=== PATIENT | female | born 1950 | race Caucasian/White ===

== ENCOUNTER → 2016-11-15 | Outpatient (CLI) | payer MEDICARE ==
--- NOTE | 2016-11-16 12:03 | MM ---
Reason for exam: screening (asymptomatic). Last mammogram was performed 1 year ago. History: Patient is postmenopausal. Took estrogen for 16 years beginning at age 39. Physical Findings: A clinical breast exam by your physician is recommended on an annual basis and results should be correlated with mammographic findings. MG 3D Screening Mammo W/Cad Bilateral CC and MLO view(s) were taken. Prior study comparison: November 12, 2015, bilateral MG 3d screening mammo w/cad. October 29, 2014, bilateral MG screening mammo w CAD. August 20, 2013, bilateral digital screening mammo w/CAD. There are scattered fibroglandular densities. There is chronic nodularity in the left breast. No significant changes when compared with prior studies. ASSESSMENT: Negative, BI-RAD 1 RECOMMENDATION: Routine screening mammogram of both breasts in 1 year.
== END | disposition home or self-care (01) ==
LOC: RADMAMWWP 14:27
PROVIDERS: ATTEND Obstetrics & Gynecology
DX: Z12.31 Encounter for screening mammogram for malignant neoplasm of breast (principal)
CPT/HCPCS: 77063; G0202

== ENCOUNTER → 2017-03-15 | Outpatient (CLI) | payer MEDICARE ==
[2017-03-15 15:13] LABS: Follicle Stimulating Hormone 7.6 mIU/mL; Prolactin 1.7 ng/mL (3.0-18.6)
[2017-03-15 19:50] LABS: ACTH 19.8 pg/mL (0.00-45.99)
== END ==
LOC: LABWHC1 14:22
PROVIDERS: ATTEND Internal Medicine Endocrinology, Diabetes & Metabolism
DX: E04.2 Nontoxic multinodular goiter (principal)
CPT/HCPCS: 36415; 82024; 82533; 83001; 83002; 84146; 84439; 84443; 84480

== ENCOUNTER → 2017-03-18 | Outpatient (CLI) | payer MEDICARE | END | disposition home or self-care (01) | LOC: LABWHC1 08:28 | PROVIDERS: ATTEND Internal Medicine Endocrinology, Diabetes & Metabolism | DX: E05.90 Thyrotoxicosis, unspecified without thyrotoxic crisis or storm (principal); R94.6 Abnormal results of thyroid function studies | CPT/HCPCS: 36415; 84439; 84443; 84445; 84481 ==

== ENCOUNTER → 2017-03-31 | Outpatient (CLI) | payer MEDICARE ==
--- NOTE | 2017-04-01 12:06 | NM ---
EXAMINATION TYPE: NM thyroid image w uptake DATE OF EXAM: 04/01/2017 COMPARISON: none HISTORY: Hyperthyroidism and abnormal thyroid function test per order. Symptoms of change in hair, n ails, weight gain, tremors, insomnia, and thyroid swelling per patient. TECHNIQUE: After the intravenous administration of 10.8 mCi Tc 99m Sodium Pertechnetate, thyroid imag ing is performed 10 minutes post injection. Thyroid iodine uptake is calculated after the oral admini stration of 15.8 uCi I-131 capsule. FINDINGS: There is normal distribution of activity throughout the gland. The 4 hour iodine uptake is calculated at 3%, diminished from the normal range however is the 24-hour iodine uptake is calculate d at 16% (normal range 15-35%) , lower limits of normal. IMPRESSION: Essentially normal thyroid scan and uptake.
== END | disposition home or self-care (01) ==
LOC: RADNMMAIN 10:54
PROVIDERS: ATTEND Internal Medicine Endocrinology, Diabetes & Metabolism
DX: E05.90 Thyrotoxicosis, unspecified without thyrotoxic crisis or storm (principal); R94.6 Abnormal results of thyroid function studies
CPT/HCPCS: 78014; A9528; A9512

== ENCOUNTER → 2017-05-17 | Outpatient (CLI) | payer MEDICARE | LOC: LABWHC1 09:04 | PROVIDERS: ATTEND Internal Medicine Endocrinology, Diabetes & Metabolism | DX: E04.2 Nontoxic multinodular goiter (principal) | CPT/HCPCS: 36415; 84439; 84443; 84480 ==

== ENCOUNTER → 2017-06-29 | Outpatient (CLI) | payer MEDICARE ==
--- NOTE | 2017-06-29 10:57 | XR ---
EXAMINATION TYPE: XR lumbosacral spine min 4V DATE OF EXAM: 06/29/2017 CLINICAL HISTORY: Back pain per order. TECHNIQUE: Frontal, lateral, and oblique images of the lumbar spine are obtained. COMPARISON: CT abdomen and pelvis November 12, 2009 FINDINGS: There are 5 lumbar type vertebral bodies identified. The lumbar spine shows straightened alignment without evidence of acute fracture or dislocation. Vertebral body heights are within normal limits. There is mild to moderate disc space narrowing L3-L4 level. There is fairly moderate facet a rthropathy in the lower lumbar spine. The oblique images appear within normal limits. No significant spurring is seen. Cholecystectomy clips are seen in the overlying soft tissue. IMPRESSION: Lower level facet arthropathy, mild to moderate disc space narrowing L3-L4 level, and los s of normal lumbar lordosis noted.
== END | disposition home or self-care (01) ==
LOC: RADXRMAIN 10:33
PROVIDERS: ATTEND Internal Medicine Geriatric Medicine
DX: M48.06 Spinal stenosis, lumbar region (principal); M46.96 Unspecified inflammatory spondylopathy, lumbar region
CPT/HCPCS: 72110

== ENCOUNTER → 2017-08-01 | Outpatient (CLI) | payer MEDICARE | END | disposition home or self-care (01) | LOC: LABWHC1 09:06 | PROVIDERS: ATTEND Internal Medicine Endocrinology, Diabetes & Metabolism | DX: E05.90 Thyrotoxicosis, unspecified without thyrotoxic crisis or storm (principal) | CPT/HCPCS: 36415; 84439; 84443 ==

== ENCOUNTER → 2017-12-08 | Outpatient (CLI) | payer MEDICARE ==
--- NOTE | 2017-12-08 14:23 | BD ---
EXAMINATION TYPE: MG DEXA axial skeleton. DATE OF EXAM: 12/08/2017 COMPARISON: Prior DEXA bone scan October 29, 2014 CLINICAL HISTORY: Disorder of bone per order. Height: 65.5 Weight: 206.0 FRAX RISK QUESTIONS: Alcohol (3 or more units per day): no Family History (Parent hip fracture): no Glucocorticoids (More than 3mos): no (Ex: prednisone, prednisolone, methylprednisolone, dexamethasone, and hydrocortisone). History of Fracture in Adulthood: no Secondary Osteoporosis: 1. Type 1 Diabetes: no 2. Hyperthyroidism: no 3. Menopause before 45: yes 4. Malnutrition: no 5. Chronic liver disease: no Rheumatoid Arthritis: yes Current Tobacco Use: no RISK FACTORS HISTORY OF: Surgery to Spine/Hip(right/left)/Wrist (right/left): no Family History of Osteoporosis: no Active: yes Diet low in dairy products/other sources of calcium: no Postmenopausal woman: hysterectomy 30 years ago Lost more than 2 inches in height since high school: no Frequent falls: no Adrenal Insufficiency: no MEDICATIONS: omeprazole, venlafaxine, atorvastatin, losartan, xanax Thyroid Medications: thyroid How Lon year Additional History: EXAM MEASUREMENTS: Bone mineral densitometry was performed using the [employer] System. Bone mineral density as measured about the Lumbar spine is: ----- L1-L4(G/cm2): 0.913 T Score Values are as follows: ----- L2: -1.8 ----- L3: -2.8 ----- L4: -2.6 ----- L1-L4: -2.2 Bone mineral density has: decreased -10.3 % since study of: 10.29.2014 Bone mineral density about the R hip (g/cm2): 0.870 Bone mineral density about the L hip (g/cm2): 0.848 T Score values are as follows: -----R Neck: -1.2 -----L Neck: -1.4 -----R Total: -0.9 -----L Total: -1.3 Bone mineral density has: decreased -5.1 % since study of: 10.29.2014 IMPRESSION: Osteopenia (T Score between -2.5 and -1) in both hips and low back remains present. Bone density decr eased or diminished from prior. There remains slightly increased risk of fracture and the patient may be considered for treatment. Re-Screen 2-5 years. NOTE: T-SCORE=SD OF THE YOUNG ADULT MEAN.
--- NOTE | 2017-12-12 08:01 | MM ---
Reason for exam: screening (asymptomatic). Last mammogram was performed 1 year and 1 month ago. History: Patient is postmenopausal. Took estrogen for 16 years beginning at age 39. Physical Findings: A clinical breast exam by your physician is recommended on an annual basis and results should be correlated with mammographic findings. MG 3D Screening Mammo W/Cad Bilateral CC and MLO view(s) were taken. Prior study comparison: November 15, 2016, bilateral MG 3d screening mammo w/cad. November 12, 2015, bilateral MG 3d screening mammo w/cad. There are scattered fibroglandular densities. Increased nodularity in the left breast 5cm from nipple. This finding is changed when compared with previous exams. ASSESSMENT: Incomplete: need additional imaging evaluation, BI-RAD 0 RECOMMENDATION: Special view mammogram of the left breast. If lesion persists on supplemental views, image directed ultrasound is recommended. [facility] will attempt to contact patient to return for supplemental views and ultrasound if indicated.
== END | disposition home or self-care (01) ==
LOC: RADMAMWWP 11:07
PROVIDERS: ATTEND Obstetrics & Gynecology
DX: Z12.31 Encounter for screening mammogram for malignant neoplasm of breast (principal); M85.852 Other specified disorders of bone density and structure, left thigh; M85.851 Other specified disorders of bone density and structure, right thigh; M85.88 Other specified disorders of bone density and structure, other site
CPT/HCPCS: 77063; 77067; 77080

== ENCOUNTER → 2017-12-14 | Outpatient (CLI) | payer MEDICARE ==
--- NOTE | 2017-12-15 07:37 | MM ---
Reason for exam: additional evaluation requested from abnormal screening. Last mammogram was performed less than 1 month ago. History: Patient is postmenopausal. Took estrogen for 16 years beginning at age 39. Physical Findings: Nurse Summary: 1cm nodule in left breast at 12 o'clock (nurse jennifer). MG 3D Work Up W/Cad LT Spot compression CC, spot compression MLO, and ML view(s) were taken of the left breast. Prior study comparison: December 08, 2017, bilateral MG 3d screening mammo w/cad. November 15, 2016, bilateral MG 3d screening mammo w/cad. The breast tissue is heterogeneously dense. This may lower the sensitivity of mammography. There is chronic nodularity in the left breast subareolar position. These results were verbally communicated with the patient and result sheet given to the patient on 12/14/17. ASSESSMENT: Probably benign, BI-RAD 3 RECOMMENDATION: Follow-up diagnostic mammogram of the left breast in 1 year.
== END | disposition home or self-care (01) ==
LOC: RADMAMWWP 12:43
PROVIDERS: ATTEND Obstetrics & Gynecology
DX: R92.8 Other abnormal and inconclusive findings on diagnostic imaging of breast (principal)
CPT/HCPCS: 77065; G0279

== ENCOUNTER → 2018-03-31 | Outpatient (CLI) | payer MEDICARE ==
[2018-03-31 13:00] LABS: T4, Free (Free Thyroxine) 1.02 ng/dL (0.78-2.19)
== END | disposition home or self-care (01) ==
LOC: LABWHC1 11:45
PROVIDERS: ATTEND Internal Medicine Endocrinology, Diabetes & Metabolism
DX: E05.90 Thyrotoxicosis, unspecified without thyrotoxic crisis or storm (principal)
CPT/HCPCS: 36415; 84439; 84443; 84480

== ENCOUNTER → 2018-07-31 | Outpatient (CLI) | payer MEDICARE ==
--- NOTE | 2018-07-31 15:03 | US ---
EXAMINATION TYPE: US thyroid st tissue head/neck DATE OF EXAM: 07/31/2018 COMPARISON: NM study only CLINICAL HISTORY: E04.2 Nontoxic multinodular goiter. On thyroid meds, pt states known nodules GLAND SIZE: Right Lobe: 3.3 x 1.2 x 1.1 cm Overall Parenchyma: heterogenous Left Lobe: 3.8 x 1.4 x 1.2 cm Overall Parenchyma: heterogeneous Isthmus Thickness: 0.4 cm NODULES RIGHT: # of nodules measured on right: 2 1. 1.0 X 0.7 x 1.0 cm hypoechoic solid nodule at the lower pole with well-defined margins;This nodu le is wider than tall and shows intranodular vascularity. Prior size: No prior 2. 0.6 X 0.5 x 0.6 cm echogenic calcified nodule at the upper pole with poorly defined margins; Thi s nodule is wider than tall Prior size: No prior LEFT: # of nodules measured on left: 1 1. 0.7 X 0.6 x 0.7 cm hypoechoic solid nodule at the mid pole with well-defined margins; This nodu le is wider than tall and shows intranodular vascularity. Prior size: No prior Other sub-centimeter, cystic nodules seen bilaterally Bilateral neck scanned, no evidence of lymphadenopathy. Nodules bilaterally, heterogeneous thyroid. IMPRESSION: Nonspecific subcentimeter thyroid nodularity identified.
[2018-07-31 16:24] LABS: T4, Free (Free Thyroxine) 1.07 ng/dL (0.78-2.19)
== END | disposition home or self-care (01) ==
LOC: RADUSWWP 14:13
PROVIDERS: ATTEND Internal Medicine Endocrinology, Diabetes & Metabolism
DX: E04.2 Nontoxic multinodular goiter (principal); E05.90 Thyrotoxicosis, unspecified without thyrotoxic crisis or storm
CPT/HCPCS: 36415; 76536; 84439; 84443; 84480

== ENCOUNTER → 2019-04-13 | Outpatient (CLI) | payer MEDICARE ==
[2019-04-13 15:34] LABS: Albumin 4.3 g/dL (3.80-4.90); Albumin/Globulin Ratio 2.26 (1.60-3.17); Anion Gap 7.2 mmol/L (4.00-12.00); Calcium 9.3 mg/dL (8.7-10.3); Carbon Dioxide 27.8 mmol/L (21.6-31.8); Globulin 1.9 g/dL (1.6-3.3); LDL Cholesterol,Calculated 66.8 mg/dL (0.0-131.0); Potassium 4.1 mmol/L (3.5-5.5); Total Bilirubin 0.6 mg/dL (0.3-1.2); Total Protein 6.2 g/dL (6.2-8.2); VLDL Calculation 23.2 mg/dL (5.00-40.00)
[2019-04-13 16:26] LABS: Hemoglobin A1C 6.4 % (4.0-6.0)
== END ==
LOC: LABWHC1 08:56
PROVIDERS: ATTEND Internal Medicine Endocrinology, Diabetes & Metabolism
DX: E11.65 Type 2 diabetes mellitus with hyperglycemia (principal)
CPT/HCPCS: 36415; 80053; 80061; 82043; 82570; 83036; 84443

== ENCOUNTER → 2019-07-27 | Outpatient (CLI) | payer MEDICARE ==
[2019-07-27 10:23] LABS: Basophils # (A) 0.1 k/uL (0-0.2); Basophils % (A) 1 %; Eosinophils # (A) 0.3 k/uL (0-0.7); Eosinophils % (A) 5 %; HCT 44.7 % (34.0-46.0); HGB 14.1 gm/dL (11.4-16.0); Lymphocytes # (A) 1.5 k/uL (1.0-4.8); Lymphocytes % (A) 24 %; MCH 28.9 pg (25.0-35.0); MCHC 31.6 g/dL (31.0-37.0); MCV 91.5 fL (80.0-100.0); Mean Platelet Volume 6.9; Monocytes # (A) 0.4 k/uL (0-1.0); Monocytes % (A) 6 %; Neutrophils # (A) 3.9 k/uL (1.3-7.7); Neutrophils % (A) 62 %; Platelet Count 243 k/uL (150-450); RBC 4.88 m/uL (3.80-5.40); WBC 6.4 k/uL (3.8-10.6)
[2019-07-27 15:50] LABS: African American GFR (CKD) 113.7 (60.0-200.0); Albumin 4.3 g/dL (3.80-4.90); Albumin/Globulin Ratio 2.39 (1.60-3.17); Anion Gap 9.1 mmol/L (4.00-12.00); Calcium 9.3 mg/dL (8.7-10.3); Carbon Dioxide 29.9 mmol/L (21.6-31.8); Chol/HDL Ratio 3.55; Globulin 1.8 g/dL (1.6-3.3); LDL Cholesterol,Calculated 65.6 mg/dL (0.0-131.0); Potassium 4.2 mmol/L (3.5-5.5); Total Bilirubin 1.1 mg/dL (0.2-1.2); Total Protein 6.1 g/dL (6.2-8.2); VLDL Calculation 36.4 mg/dL (5.00-40.00)
[2019-07-27 15:59] LABS: T4, Free (Free Thyroxine) 1.1 ng/dL (0.80-1.80)
[2019-07-27 20:24] LABS: Hemoglobin A1C 6.2 % (4.0-6.0)
== END | disposition home or self-care (01) ==
LOC: LABWHC1 09:21
PROVIDERS: ATTEND Internal Medicine Endocrinology, Diabetes & Metabolism
DX: E07.9 Disorder of thyroid, unspecified (principal); E78.2 Mixed hyperlipidemia; E11.65 Type 2 diabetes mellitus with hyperglycemia; E05.90 Thyrotoxicosis, unspecified without thyrotoxic crisis or storm
CPT/HCPCS: 36415; 80053; 80061; 83036; 84439; 84443; 85025

== ENCOUNTER → 2019-11-28 | Outpatient (CLI) | payer MEDICARE ==
[2019-11-28 12:07] LABS: T4, Free (Free Thyroxine) 1.3 ng/dL (0.80-1.80)
[2019-11-28 15:05] LABS: Hemoglobin A1C 7.1 % (4.0-6.0)
== END | disposition home or self-care (01) ==
LOC: LABWHC1 07:15
PROVIDERS: ATTEND Internal Medicine Endocrinology, Diabetes & Metabolism
DX: E05.90 Thyrotoxicosis, unspecified without thyrotoxic crisis or storm (principal); E11.9 Type 2 diabetes mellitus without complications
CPT/HCPCS: 36415; 83036; 84439; 84443; 84480

== ENCOUNTER → 2020-07-16 | Outpatient (CLI) | payer MEDICARE ==
--- NOTE | 2020-07-17 07:35 | US ---
EXAMINATION TYPE: US thyroid st tissue head/neck DATE OF EXAM: 07/16/2020 COMPARISON: NONE CLINICAL HISTORY: E05.90 Thyrotoxicosis, unspecified without. GLAND SIZE: Right Lobe: 3.6 x 1.0 x 1.2 cm Overall Parenchyma: heterogenous Left Lobe: 3.2 x 1.1 x 1.3 cm Overall Parenchyma: heterogeneous Isthmus Thickness: 0.4 cm NODULES RIGHT: # of nodules measured on right: 1, calc and subcentimeter cystic area noted but not measured . 1. 0.9 X 0.7 x 1.1 cm hypoechoic solid nodule at the mid pole with well-defined margins. This nodu le is wider than tall and shows intranodular vascularity. Prior size: 1.0 x 0.7 x 1.0 cm LEFT: # of nodules measured on left: 1 1. 0.8 X 0.7 x 0.9 cm mixed nodule at the mid pole with well-defined margins. This nodule is wider than tall and shows intranodular vascularity. Prior size: 0.7 x 0.7 x 0.6 cm ISTHMUS: # of nodules measured in the isthmus: 0 Bilateral neck scanned, no evidence of lymphadenopathy. IMPRESSION: 1. There is a 1 cm nodule within the right lobe thyroid essentially stable from comparison.
== END | disposition home or self-care (01) ==
LOC: RADUSWWP 16:37
PROVIDERS: ATTEND Internal Medicine Endocrinology, Diabetes & Metabolism
DX: E04.1 Nontoxic single thyroid nodule (principal)
CPT/HCPCS: 76536

== ENCOUNTER → 2020-10-21 | Outpatient (CLI) | payer MEDICARE ==
--- NOTE | 2020-10-21 19:16 | BD ---
EXAMINATION TYPE: Axial Bone Density DATE OF EXAM: 10/21/2020 COMPARISON: 12/08/2017 CLINICAL HISTORY: Postmenopausal screening Height: 5 FT 5 IN Weight: 186 FRAX RISK QUESTIONS: Alcohol (3 or more units per day): NO Family History (Parent hip fracture): NO Glucocorticoids (More than 3mos): NO (Ex: prednisone, prednisolone, methylprednisolone, dexamethasone, and hydrocortisone). History of Fracture in Adulthood: NO Secondary Osteoporosis: 1. Type 1 Diabetes: NO 2. HyperthyroidismNO 3. Menopause before 45: PART HYST AGE 43 4. Malnutrition: NO 5. Chronic liver disease: NO Rheumatoid Arthritis: YES Current Tobacco Use: NO RISK FACTORS HISTORY OF: Family History of Osteoporosis: NO Active: YES Diet low in dairy products/other sources of calcium: NO Postmenopausal woman: PART ST AGE 43 Take estrogen and/or progesterone medications: TOOK HRT AGE 43 -53 NO LONGER TAKES Lost more than 2 inches in height since high school: NO MEDICATIONS: Additional Medications: LYRICA, OMEPRAZOLE, ATORVASTATIN,LOSARTIN, AMLODIPINE, GENUVIA, XANAX, MOTRI N 600, VIT D , CALCIUM , ASPIRIN Additional History: EXAM MEASUREMENTS: Bone mineral densitometry was performed using the [employer]. Bone mineral density as measured about the Lumbar spine is: ----- L1-L4(G/cm2): 0.977 T Score Values are as follows: ----- L2: -1.3 ----- L3: -2.0 ----- L4: -2.1 ----- L1-L4: -1.7 Bone mineral density has: INCREASED 8.0 % since study of: 2017 Bone mineral density about the R hip (g/cm2): 0.863 Bone mineral density about the L hip (g/cm2): 0.833 T Score values are as follows: -----R Neck: -1.3 -----L Neck: -1.5 -----R Total: -0.6 -----L Total: -1.3 Bone mineral density has: INCREASED 2.0 % since study of: 2017 IMPRESSION: Osteopenia (T Score between -2.5 and -1). There is slightly increased risk of fracture and the patient may be considered for treatment. Re-Screen 2-5 years. NOTE: T-SCORE=SD OF THE YOUNG ADULT MEAN.
--- NOTE | 2020-10-22 13:12 | MM ---
Reason for exam: screening (asymptomatic). Last mammogram was performed 2 years and 10 months ago. History: Patient is postmenopausal. Took estrogen for 16 years beginning at age 39. Physical Findings: A clinical breast exam by your physician is recommended on an annual basis and results should be correlated with mammographic findings. MG 3D Screening Mammo W/Cad Bilateral CC and MLO view(s) were taken. Prior study comparison: December 14, 2017, left breast MG 3d work up w/cad LT. December 08, 2017, bilateral MG 3d screening mammo w/cad. There are scattered fibroglandular densities. There are benign appearing round calcifications bilaterally. There is chronic nodularity in the left breast subareolar level. There is no discrete abnormality. ASSESSMENT: Benign, BI-RAD 2 RECOMMENDATION: Routine screening mammogram of both breasts in 1 year.
== END | disposition home or self-care (01) ==
LOC: RADMAMWWP 09:27
PROVIDERS: ATTEND Internal Medicine Geriatric Medicine
DX: Z12.31 Encounter for screening mammogram for malignant neoplasm of breast (principal); M85.80 Other specified disorders of bone density and structure, unspecified site; M81.0 Age-related osteoporosis without current pathological fracture
CPT/HCPCS: 77063; 77067; 77080

== ENCOUNTER 2021-10-15 20:28 | Inpatient (IN) | payer MEDICARE ==
[2021-10-15 21:57] LABS: Basophils # (A) 0.1 k/uL (0-0.2); Basophils % (A) 0 %; Eosinophils # (A) 0.1 k/uL (0-0.7); Eosinophils % (A) 1 %; HCT 43.3 % (34.0-46.0); HGB 13.5 gm/dL (11.4-16.0); Lymphocytes # (A) 0.8 k/uL (1.0-4.8); Lymphocytes % (A) 6 %; MCH 26.9 pg (25.0-35.0); MCHC 31.1 g/dL (31.0-37.0); MCV 86.3 fL (80.0-100.0); Mean Platelet Volume 8.1; Monocytes # (A) 0.5 k/uL (0-1.0); Monocytes % (A) 4 %; Neutrophils # (A) 12.6 k/uL (1.3-7.7); Neutrophils % (A) 88 %; Platelet Count 257 k/uL (150-450); RBC 5.02 m/uL (3.80-5.40); RDW 13.5 % (11.5-15.5); WBC 14.2 k/uL (3.8-10.6)
[2021-10-15 22:13] LABS: ALT 21 U/L (4-34); AST 28 U/L (14-36); African American GFR (CKD) >90 (>60 ml/min/1.73 sqM); Albumin 4.4 g/dL (3.5-5.0); Alkaline Phosphatase 119 U/L (38-126); Anion Gap 7 mmol/L; Blood Urea Nitrogen 20 mg/dL (7-17); Calcium 9.9 mg/dL (8.4-10.2); Carbon Dioxide 32 mmol/L (22-30); Chloride 101 mmol/L (98-107); Glucose 165 mg/dL (74-99); Lipase 662 U/L (23-300); Non-African American GFR(CKD) >90 (>60 ml/min/1.73 sqM); Potassium 3.9 mmol/L (3.5-5.1); Sodium 140 mmol/L (137-145); Total Protein 7.2 g/dL (6.3-8.2)
[2021-10-15 23:03] LABS: Appearance,Urine Clear (Clear); Bacteria,Urine Many /hpf; Bilirubin,Urine Negative (Negative); Blood,Urine Moderate (Negative); Color,Urine Yellow; Glucose,Urine (UA) Negative (Negative); Ketones,Urine 1+ (Negative); Leukocyte Esterase,Urine Small (Negative); Mucus,Urine Occasional /hpf; Nitrite,Urine Negative (Negative); PH, Urine 5.5 (5.0-8.0); Protein,Urine Trace (Negative); RBC,Urine 13 /hpf (0-5); Specific Gravity,Urine 1.023 (1.001-1.035); Squamous Epithelial Cell,Urine <1 /hpf (0-4); Urobilinogen,Urine <2.0 mg/dL (<2.0); WBC,Urine 9 /hpf (0-5)
--- NOTE | 2021-10-15 23:05 | ED ---
Abdominal Pain HPI - General Chief Complaint: Abdominal Pain Stated Complaint: Abd pain,vomiting-Sent by Time Seen by Provider: 10/15/21 21:15 Source: patient Mode of arrival: wheelchair Limitations: physical limitation - History of Present Illness Initial Comments: The patient is a 70-year-old female past history of diabetes who presents to the emergency room with reported abdominal pain. States that she has had abdominal pain for approximately the past 6 months. She was on metformin for her diabetes however she states that she was having difficulty obtaining a hemoglobin A1c less than 7. Because of this they did place the patient on Januvia. Since she has been taking this medication once a week she reports that she has had constipation issues. She will occasionally take stool softeners and laxatives however nothing on a consistent basis. Today she had significant abdominal pain to the point where she had an episode of vomiting. Stated it was dark in color however denies any bright red blood. No black or bloody stools. She did have a bowel movement earlier today but states it was only a small amounts. She normally goes once per week. She called her primary care physician who recommended that she come in to the emergency room for evaluation of bowel obstruction. Denies history of previous bowel obstructions in the past. No fevers. No chest pain. No other alleviating, precipitating or modifying factors - Related Data Home Medications Medication Instructions Recorded Confirmed ALPRAZolam [Xanax] 0.25 mg PO BID PRN 10/15/21 10/15/21 Aspirin EC [Ecotrin Low Dose] 81 mg PO DAILY 10/15/21 10/15/21 Atorvastatin [Lipitor] 10 mg PO HS 10/15/21 10/15/21 Calcium Carbonate [Calcium] 600 mg PO DAILY 10/15/21 10/15/21 Cholecalciferol (Vitamin D3) 125 mcg PO DAILY 10/15/21 10/15/21 [Vitamin D3 (125 MCG = 5,000 IU)] Dulaglutide [Trulicity] 0.75 mg SQ TU 10/15/21 10/15/21 Ibuprofen [Motrin] 600 mg PO Q8HR PRN 10/15/21 10/15/21 Losartan Potassium 100 mg PO DAILY 10/15/21 10/15/21 Magnesium 250 mg PO DAILY 10/15/21 10/15/21 Omeprazole [PriLOSEC] 20 mg PO BID 10/15/21 10/15/21 Pregabalin [Lyrica] 75 mg PO HS 10/15/21 10/15/21 amLODIPine [Norvasc] 5 mg PO HS 10/15/21 10/15/21 metFORMIN HCL 500 mg PO BID 10/15/21 10/15/21 sitaGLIPtin [Januvia] 100 mg PO DAILY 10/15/21 10/15/21 Allergies Allergy/AdvReac Type Severity Reaction Status Date / Time Sulfa (Sulfonamide Allergy Swelling Verified 10/15/21 22:50 Antibiotics) Review of Systems ROS Statement: Those systems with pertinent positive or pertinent negative responses have been documented in the HPI. ROS Other: All systems not noted in ROS Statement are negative. Past Medical History Past Medical History: Diabetes Mellitus Additional Past Medical History / Comment(s): Neruopathy History of Any Multi-Drug Resistant Organisms: None Reported Past Surgical History: No Surgical Hx Reported Past Anesthesia/Blood Transfusion Reactions: No Reported Reaction Past Psychological History: No Psychological Hx Reported Smoking Status: Former smoker Past Alcohol Use History: None Reported Past Drug Use History: None Reported - Past Family History Mother Family Medical History: Cancer, Hypertension Additional Family Medical History / Comment(s): Mother had brain cancer Father Family Medical History: Cancer Additional Family Medical History / Comment(s): Father was a cigar smoker and had multiple environmental exposures, he from metastatic cancer that had gone to his lungs. General Exam Limitations: no limitations General appearance: alert, in no apparent distress Head exam: Present: atraumatic, normocephalic, normal inspection Eye exam: Present: normal appearance, PERRL, EOMI. Absent: scleral icterus, conjunctival injection, periorbital swelling ENT exam: Present: normal exam, mucous membranes moist Neck exam: Present: normal inspection. Absent: tenderness, meningismus, lymphadenopathy Respiratory exam: Present: normal lung sounds bilaterally. Absent: respiratory distress, wheezes, rales, rhonchi, stridor Cardiovascular Exam: Present: regular rate, normal rhythm, normal heart sounds. Absent: systolic murmur, diastolic murmur, rubs, gallop, clicks GI/Abdominal exam: Present: soft, tenderness (generalized, mild), normal bowel sounds. Absent: distended, guarding, rebound, rigid External exam: Present: normal external exam. Absent: erythema, swelling, lesions, lacerations, ecchymosis Extremities exam: Present: normal inspection, full ROM, normal capillary refill. Absent: tenderness, pedal edema, joint swelling, calf tenderness Back exam: Present: normal inspection Neurological exam: Present: alert, oriented X3, CN II-XII intact Psychiatric exam: Present: normal affect, normal mood Skin exam: Present: warm, dry, intact, normal color. Absent: rash Course Vital Signs 10/15/21 10/16/21 21:11 07:49 Temperature 98.5 F 98.6 F Pulse Rate 94 Pulse Rate [ 73 Pulse Oximetery ] Respiratory 18 16 Rate Blood Pressure 130/83 Blood Pressure 126/79 [Right Arm] O2 Sat by Pulse 96 96 Oximetry - Reevaluation(s) Reevaluation #1: Janae Muniz refused. 10/15/21 23:44 Reevaluation #2: Spoke with Tim Tamayo - will call back 10/15/21 23:56 Reevaluation #3: 10/16/21 01:03 [facility] refused Medical Decision Making - Medical Decision Making Upon arrival the patient is placed in room 19. A thorough history and physical exam is performed. IV is established laboratory studies were conducted. Patient is a white count of 14.2. Lipase is 662. Urinalysis demonstrates moderate blood, rare white blood cell clumps with many bacteria. Patient given a dose of Rocephin. She was sent for CT of her abdomen and pelvis. EKG demonstrates an 8 cm pancreatic tail mass. There are also lesions on liver and omentum concerning for metastasis. Patient has ileus versus small bowel obstruction. I did attempt to transfer the patient's outside facilities however unable to gain acceptance. Did call and speak with Dr. Rodriguez who will admit the patient. She agreeable to admission here. We'll consult surgery and oncology. Patient remained in stable condition awaiting a bed - Lab Data Result diagrams: 10/15/21 21:37 10/15/21 21:37 Lab Results 10/15/21 10/15/21 10/15/21 Range/Units 21:37 21:37 21:37 WBC 14.2 H (3.8-10.6) k/uL RBC 5.02 (3.80-5.40) m/uL Hgb 13.5 (11.4-16.0) gm/dL Hct 43.3 (34.0-46.0) % MCV 86.3 (80.0-100.0) fL MCH 26.9 (25.0-35.0) pg MCHC 31.1 (31.0-37.0) g/dL RDW 13.5 (11.5-15.5) % Plt Count 257 (150-450) k/uL MPV 8.1 Neutrophils % 88 % Lymphocytes % 6 % Monocytes % 4 % Eosinophils % 1 % Basophils % 0 % Neutrophils # 12.6 H (1.3-7.7) k/uL Lymphocytes # 0.8 L (1.0-4.8) k/uL Monocytes # 0.5 (0-1.0) k/uL Eosinophils # 0.1 (0-0.7) k/uL Basophils # 0.1 (0-0.2) k/uL PT 10.8 (9.0-12.0) sec INR 1.0 (<1.2) APTT 21.7 L (22.0-30.0) sec Sodium 140 (137-145) mmol/L Potassium 3.9 (3.5-5.1) mmol/L Chloride 101 (98-107) mmol/L Carbon Dioxide 32 H (22-30) mmol/L Anion Gap 7 mmol/L BUN 20 H (7-17) mg/dL Creatinine 0.45 L (0.52-1.04) mg/dL Est GFR (CKD-EPI)AfAm >90 (>60 ml/min/1.73 sqM) Est GFR (CKD-EPI)NonAf >90 (>60 ml/min/1.73 sqM) Glucose 165 H (74-99) mg/dL Plasma Lactic Acid Calos (0.7-2.0) mmol/L Calcium 9.9 (8.4-10.2) mg/dL Total Bilirubin 1.0 (0.2-1.3) mg/dL AST 28 (14-36) U/L ALT 21 (4-34) U/L Alkaline Phosphatase 119 (38-126) U/L Total Protein 7.2 (6.3-8.2) g/dL Albumin 4.4 (3.5-5.0) g/dL Lipase 662 H (23-300) U/L Urine Color Urine Appearance (Clear) Urine pH (5.0-8.0) Ur Specific Hanson (1.001-1.035) Urine Protein (Negative) Urine Glucose (UA) (Negative) Urine Ketones (Negative) Urine Blood (Negative) Urine Nitrite (Negative) Urine Bilirubin (Negative) Urine Urobilinogen (<2.0) mg/dL Ur Leukocyte Esterase (Negative) Urine RBC (0-5) /hpf Urine WBC (0-5) /hpf Urine WBC Clumps (None) /hpf Ur Squamous Epith Cells (0-4) /hpf Urine Bacteria (None) /hpf Urine Mucus (None) /hpf Coronavirus (PCR) (Not Detectd) 10/15/21 10/15/21 10/16/21 Range/Units 21:37 22:38 00:30 WBC (3.8-10.6) k/uL RBC (3.80-5.40) m/uL Hgb (11.4-16.0) gm/dL Hct (34.0-46.0) % MCV (80.0-100.0) fL MCH (25.0-35.0) pg MCHC (31.0-37.0) g/dL RDW (11.5-15.5) % Plt Count (150-450) k/uL MPV Neutrophils % % Lymphocytes % % Monocytes % % Eosinophils % % Basophils % % Neutrophils # (1.3-7.7) k/uL Lymphocytes # (1.0-4.8) k/uL Monocytes # (0-1.0) k/uL Eosinophils # (0-0.7) k/uL Basophils # (0-0.2) k/uL PT (9.0-12.0) sec INR (<1.2) APTT (22.0-30.0) sec Sodium (137-145) mmol/L Potassium (3.5-5.1) mmol/L Chloride (98-107) mmol/L Carbon Dioxide (22-30) mmol/L Anion Gap mmol/L BUN (7-17) mg/dL Creatinine (0.52-1.04) mg/dL Est GFR (CKD-EPI)AfAm (>60 ml/min/1.73 sqM) Est GFR (CKD-EPI)NonAf (>60 ml/min/1.73 sqM) Glucose (74-99) mg/dL Plasma Lactic Acid Calos 1.9 (0.7-2.0) mmol/L Calcium (8.4-10.2) mg/dL Total Bilirubin (0.2-1.3) mg/dL AST (14-36) U/L ALT (4-34) U/L Alkaline Phosphatase (38-126) U/L Total Protein (6.3-8.2) g/dL Albumin (3.5-5.0) g/dL Lipase (23-300) U/L Urine Color Yellow Urine Appearance Clear (Clear) Urine pH 5.5 (5.0-8.0) Ur Specific Hanson 1.023 (1.001-1.035) Urine Protein Trace H (Negative) Urine Glucose (UA) Negative (Negative) Urine Ketones 1+ H (Negative) Urine Blood Moderate H (Negative) Urine Nitrite Negative (Negative) Urine Bilirubin Negative (Negative) Urine Urobilinogen <2.0 (<2.0) mg/dL Ur Leukocyte Esterase Small H (Negative) Urine RBC 13 H (0-5) /hpf Urine WBC 9 H (0-5) /hpf Urine WBC Clumps Rare H (None) /hpf Ur Squamous Epith Cells <1 (0-4) /hpf Urine Bacteria Many H (None) /hpf Urine Mucus Occasional H (None) /hpf Coronavirus (PCR) Not Detected (Not Detectd) Disposition Clinical Impression: Pancreatic mass, Abdominal pain, Ileus Disposition: ADMITTED IP TO THIS [facility] Condition: Serious Is patient prescribed a controlled substance at d/c from ED?: No Decision to Admit Reason: Admit from EC Decision Date: 10/16/21 Decision Time: 00:57
[2021-10-15] MEDS ORDERED: cefTRIAXone IN SWFI 1,000 MG/10 ML SYRINGE IVP STA (23:09)
--- NOTE | 2021-10-15 23:13 | CT ---
EXAMINATION TYPE: CT abdomen pelvis w con DATE OF EXAM: 10/15/2021 COMPARISON: HISTORY: pain and vomiting CT DLP: 1342.8 mGycm Automated exposure control for dose reduction was used. CONTRAST: Performed with IV Contrast, patient injected with 100 mL of Isovue 300. Images obtained from the diaphragm to the floor the pelvis with IV contrast. There is moderate hiatal hernia. Heart size is normal. There is no pericardial effusion. There is no pleural effusion. There is 2 cm irregular hypodensity in the superior right lobe of the liver. Spleen is intact. There is large irregular mass involving the tail of the pancreas measuring 8 cm. This has soft tissue density and some central hypodensity that could be necrosis. The head of the pancreas is intact. There are clips from cholecystectomy. There are 2 hypodensities in the posterior right lobe of the liver measuring 1.5 cm. There is no adrenal mass. Kidneys show satisfactory contrast opacification. There is no hydronephrosi s. Delayed images show normal renal excretion. There is no retroperitoneal adenopathy. The bladder di stends smoothly. There is small amount of free fluid in the pelvis. There is mild free fluid in the l eft paracolic gutter and around the spleen. There are some mildly dilated small bowel loops with flui d. Small bowel measures up to 3.4 cm. No transition point seen. Distal ileum is not dilated. There is no internal hernia. There is no evidence of a pelvic mass. There are some sigmoid diverticula withou t diverticulitis. There is some increased soft tissue density new mental fat on the anterior abdomen measuring up to 3. 5 cm in thickness. There is small umbilical hernia containing fat. There appears to be portion of the anterior wall of some small bowel in the hernia. The lumbar vertebrae have normal alignment. Posterior elements are intact. There is no compression fr acture. The bony pelvis is intact. The hip joints are intact. IMPRESSION: There is large low density irregular mass in the tail of the pancreas suggestive of primary malignanc y. There are scattered hypodensities in the liver that raise the possibility of metastatic disease. There are multiple omental masses in the anterior abdomen consistent with carcinomatosis. Dilated small bowel suggestive of ileus. Mechanical obstruction not excluded. Transition point not id entified. There is mild abdominal ascites. Umbilical hernia which contains apparently anterior wall of a nondil ated loop of small bowel.
[2021-10-15 23:34] LABS: Prothrombin Time 10.8 sec (9.0-12.0)
[2021-10-15] MEDS ORDERED: ALPRAZolam 0.25 MG TAB PO STA (23:41)
[2021-10-15 23:49] LABS: Partial Thromboplastin Time 21.7 sec (22.0-30.0)
[2021-10-16] MEDS ORDERED: ONDANSETRON 4 MG/2 ML VIAL IVP PRN (00:57)
[2021-10-16] MEDS ORDERED: NALOXONE 0.4 MG/ML 1 ML VIAL IV PRN (00:57)
[2021-10-16] MEDS ORDERED: DOCUSATE 100 MG CAP PO PRN (00:57)
[2021-10-16] MEDS ORDERED: MAGNESIUM HYDROXIDE 2,400 MG/10 ML CUP PO PRN (00:57)
[2021-10-16] MEDS ORDERED: IBUPROFEN 400 MG TAB PO PRN (00:57)
[2021-10-16] MEDS ORDERED: MORPHINE SULFATE 4 MG/ML SYRINGE IV PRN (00:57)
[2021-10-16] MEDS: SODIUM CHLORIDE 0.9% 1,000 ML IV SCH ×3 (04:05→15:52)
[2021-10-16] MEDS: CHOLECALCIFEROL 125 MCG (5000 IU) TABLET PO SCH (08:13)
[2021-10-16] MEDS: MAGNESIUM OXIDE 400 MG TAB PO SCH (08:13)
[2021-10-16 08:19] LABS: Glucose,Whole Blood 202 mg/dL (75-99)
[2021-10-16] MEDS: ALPRAZolam 0.25 MG TAB PO PRN ×2 (08:23→21:10)
[2021-10-16] MEDS: LOSARTAN 50 MG TAB PO SCH (08:24)
[2021-10-16] MEDS: PANTOPRAZOLE 40 MG TABLET PO SCH ×2 (08:24→21:08)
[2021-10-16] MEDS: CALCIUM CARBONATE 500 MG CHEWABLE PO SCH (08:30)
[2021-10-16] MEDS ORDERED: LINAGLIPTIN 5 MG TABLET PO SCH (09:00)
--- NOTE | 2021-10-16 11:59 | P.GSCN ---
<Katrin Gould - Last Filed: 10/16/21 11:45> History of Present Illness Consult date: 10/16/21 History of present illness: CHIEF COMPLAINT: Abdominal pain HISTORY OF PRESENT ILLNESS: This is a 70-year-old female who presented to the hospital with complaints of abdominal pain for the past 6 months. She reports that the pain is diffuse. However, yesterday she had significant pain in the epigastric area that was unbearable. Therefore she came into the ER for further evaluation and treatment. Patient reports that she is a new diabetic she initially thought some of the abdominal discomfort and issues with her bowel movements for the related to her diabetes medications. She's noted about a 21 pound weight loss in the last 2 months. She has had decreased appetite and early satiety. Patient has been having issues with constipation. She reports that she does have to disimpact her self or take milk of magnesia. She does report her last bowel movement was yesterday which was small and hard. She is having flatus. She did have multiple episodes of vomiting yesterday that were dark in color. This has now resolved. Patient also reports that she gets lower vaginal pains. Denies any vaginal bleeding. She denies any fevers chills or sweats. Denies any night sweats. Her last colonoscopy was 3 years ago and reported as normal. She does also report a history of ischemic colitis. Patient had computed tomography scan abdomen and pelvis completed which demonstrated large low density irregular mass in the tail of the pancreas suggestive of primary malignancy. There are scattered hypodensities in the liver that rise the possibility of metastatic disease. There are multiple omental masses in the anterior abdomen consistent with carcinomatosis. Dilated small bowel suggestive of ileus. Mechanical obstruction not excluded. Transition point not identified. There is mild abdominal ascites. Umbilical hernia which contains apparently anterior wall of a nondilated loop of small bowel and fat. Patient is scheduled for MRCP today. Surgical service consult in regards to ileus versus small bowel obstruction. Oncology is also following patient. Her past abdominal surgical history includes cholecystectomy, hysterectomy D&C, cystocele repair and rectocele repair. PAST MEDICAL HISTORY: See list. PAST SURGICAL HISTORY: See list. MEDICATIONS: See list. ALLERGIES: See list. SOCIAL HISTORY: No illicit drug use. Prior history of smoking over 30 years ago Family history father with lung cancer and mother with brain tumor REVIEW OF SYSTEMS: CONSTITUTIONAL: Denies fever or chills. HEENT: Denies blurred vision, vision changes, or eye pain. Denies hemoptysis CARDIOVASCULAR: Denies chest pain or pressure. RESPIRATORY: No shortness of breath. GASTROINTESTINAL: See HPI for pertinent findings HEMATOLOGIC: Denies bleeding disorders. GENITOURINARY: Denies any blood in urine or increased urinary frequency. SKIN: Denies pruitis. Denies rash. PHYSICAL EXAM: VITAL SIGNS: Reviewed GENERAL: Well-developed in no acute distress. HEENT: No sclera icterus. Extraocular movements grossly intact. Moist buccal mucosa. Head is atraumatic, normocephalic. No nasal drainage. ABDOMEN: Soft. Mildly distended. minimal tenderness with palpation of the epigastric area and lower pelvic area NEUROLOGIC: Alert and oriented. Cranial nerves II through XII grossly intact. LABORATORY DATA: WBC 14.2 Hgb 13.5 platelets 257 INR 1.0 Sodium 140 potassium 3.9 BUN 20 creatinine 0.45 lactic acid 1.9 LFTs normal Lipase 662 Covid not detected IMAGING: computed tomography scan abdomen and pelvis completed which demonstrated large low density irregular mass in the tail of the pancreas suggestive of primary malignancy. There are scattered hypodensities in the liver that rise the possibility of metastatic disease. There are multiple omental masses in the anterior abdomen consistent with carcinomatosis. Dilated small bowel suggestive of ileus. Mechanical obstruction not excluded. Transition point not identified. There is mild abdominal ascites. Umbilical hernia which contains apparently anterior wall of a nondilated loop of small bowel and fat. ASSESSMENT: 1. Abdominal pain 2. Pancreatic tail mass with possible metastatic disease. Hypodensities noted in the liver and Multiple omental masses in the anterior abdomen consistent with carcinomatosis noted on computed tomography scan 3. Dilated small bowel likely due to ileus. Mechanical obstruction not excluded noted on CAT scan 4. Umbilical hernia that contains small bowel and fat. Patient nontender on exam PLAN: -Further recommendations forthcoming per surgeon -Continue supportive care -Follow up on MRCP results -Agree with oncology consult Thank you for this consultation Physician Chemist [employer] note has been reviewed by physician. Signing provider agrees with the documented findings, assessment, and plan of care. Past Medical History Past Medical History: Diabetes Mellitus, GERD/Reflux, Hyperlipidemia, Hypertension Additional Past Medical History / Comment(s): NIDDM type II, neuropathy bilateral feet, RLS, hiatal hernia History of Any Multi-Drug Resistant Organisms: None Reported Past Surgical History: Bladder Surgery, Cholecystectomy, Hysterectomy Additional Past Surgical History / Comment(s): D&C x2, colonoscopy, cystocele/rectocele Past Anesthesia/Blood Transfusion Reactions: Postoperative Nausea & Vomiting (PONV) Additional Past Anesthesia/Blood Transfusion Reaction / Comm: Severe PONV Past Psychological History: Anxiety Additional Psychological History / Comment(s): Pt resides alone. She is indpendent. Smoking Status: Former smoker Past Alcohol Use History: Occasional Additional Past Alcohol Use History / Comment(s): Pt started smoking in 1964 and quit in 1985. Past Drug Use History: None Reported - Past Family History Mother Family Medical History: Cancer, Hypertension Additional Family Medical History / Comment(s): Mother had brain cancer Father Family Medical History: Cancer Additional Family Medical History / Comment(s): Father was a cigar smoker and had multiple environmental exposures, he from metastatic cancer that had gone to his lungs. Medications and Allergies Home Medications Medication Instructions Recorded Confirmed Type ALPRAZolam [Xanax] 0.25 mg PO BID PRN 10/15/21 10/15/21 History Aspirin EC [Ecotrin Low Dose] 81 mg PO DAILY 10/15/21 10/15/21 History Atorvastatin [Lipitor] 10 mg PO HS 10/15/21 10/15/21 History Calcium Carbonate [Calcium] 600 mg PO DAILY 10/15/21 10/15/21 History Cholecalciferol (Vitamin D3) 125 mcg PO DAILY 10/15/21 10/15/21 History [Vitamin D3 (125 MCG = 5,000 IU)] Dulaglutide [Trulicity] 0.75 mg SQ TU 10/15/21 10/15/21 History Ibuprofen [Motrin] 600 mg PO Q8HR PRN 10/15/21 10/15/21 History Losartan Potassium 100 mg PO DAILY 10/15/21 10/15/21 History Magnesium 250 mg PO DAILY 10/15/21 10/15/21 History Omeprazole [PriLOSEC] 20 mg PO BID 10/15/21 10/15/21 History Pregabalin [Lyrica] 75 mg PO HS 10/15/21 10/15/21 History amLODIPine [Norvasc] 5 mg PO HS 10/15/21 10/15/21 History metFORMIN HCL 500 mg PO BID 10/15/21 10/15/21 History sitaGLIPtin [Januvia] 100 mg PO DAILY 10/15/21 10/15/21 History Allergies Allergy/AdvReac Type Severity Reaction Status Date / Time Sulfa (Sulfonamide Allergy Swelling Verified 10/15/21 22:50 Antibiotics) Surgical - Exam Vital Signs Temp Pulse Resp BP Pulse Ox 98.5 F 94 18 130/83 96 10/15/21 21:11 10/15/21 21:11 10/15/21 21:11 10/15/21 21:11 10/15/21 21:11 Results - Labs 10/15/21 21:37 10/15/21 21:37 Abnormal Lab Results - Last 24 Hours (Table) 10/15/21 10/15/21 10/15/21 Range/Units 21:37 21:37 21:37 WBC 14.2 H (3.8-10.6) k/uL Neutrophils # 12.6 H (1.3-7.7) k/uL Lymphocytes # 0.8 L (1.0-4.8) k/uL APTT 21.7 L (22.0-30.0) sec Carbon Dioxide 32 H (22-30) mmol/L BUN 20 H (7-17) mg/dL Creatinine 0.45 L (0.52-1.04) mg/dL Glucose 165 H (74-99) mg/dL POC Glucose (mg/dL) (75-99) mg/dL Lipase 662 H (23-300) U/L Urine Protein (Negative) Urine Ketones (Negative) Urine Blood (Negative) Ur Leukocyte Esterase (Negative) Urine RBC (0-5) /hpf Urine WBC (0-5) /hpf Urine WBC Clumps (None) /hpf Urine Bacteria (None) /hpf Urine Mucus (None) /hpf 10/15/21 10/16/21 Range/Units 22:38 08:17 WBC (3.8-10.6) k/uL Neutrophils # (1.3-7.7) k/uL Lymphocytes # (1.0-4.8) k/uL APTT (22.0-30.0) sec Carbon Dioxide (22-30) mmol/L BUN (7-17) mg/dL Creatinine (0.52-1.04) mg/dL Glucose (74-99) mg/dL POC Glucose (mg/dL) 202 H (75-99) mg/dL Lipase (23-300) U/L Urine Protein Trace H (Negative) Urine Ketones 1+ H (Negative) Urine Blood Moderate H (Negative) Ur Leukocyte Esterase Small H (Negative) Urine RBC 13 H (0-5) /hpf Urine WBC 9 H (0-5) /hpf Urine WBC Clumps Rare H (None) /hpf Urine Bacteria Many H (None) /hpf Urine Mucus Occasional H (None) /hpf Diabetes panel 10/15/21 Range/Units 21:37 Sodium 140 (137-145) mmol/L Potassium 3.9 (3.5-5.1) mmol/L Chloride 101 (98-107) mmol/L Carbon Dioxide 32 H (22-30) mmol/L BUN 20 H (7-17) mg/dL Creatinine 0.45 L (0.52-1.04) mg/dL Glucose 165 H (74-99) mg/dL Calcium 9.9 (8.4-10.2) mg/dL AST 28 (14-36) U/L ALT 21 (4-34) U/L Alkaline Phosphatase 119 (38-126) U/L Total Protein 7.2 (6.3-8.2) g/dL Albumin 4.4 (3.5-5.0) g/dL Calcium panel 10/15/21 Range/Units 21:37 Calcium 9.9 (8.4-10.2) mg/dL Albumin 4.4 (3.5-5.0) g/dL Pituitary panel 10/15/21 Range/Units 21:37 Sodium 140 (137-145) mmol/L Potassium 3.9 (3.5-5.1) mmol/L Chloride 101 (98-107) mmol/L Carbon Dioxide 32 H (22-30) mmol/L BUN 20 H (7-17) mg/dL Creatinine 0.45 L (0.52-1.04) mg/dL Glucose 165 H (74-99) mg/dL Calcium 9.9 (8.4-10.2) mg/dL Adrenal panel 10/15/21 Range/Units 21:37 Sodium 140 (137-145) mmol/L Potassium 3.9 (3.5-5.1) mmol/L Chloride 101 (98-107) mmol/L Carbon Dioxide 32 H (22-30) mmol/L BUN 20 H (7-17) mg/dL Creatinine 0.45 L (0.52-1.04) mg/dL Glucose 165 H (74-99) mg/dL Calcium 9.9 (8.4-10.2) mg/dL Total Bilirubin 1.0 (0.2-1.3) mg/dL AST 28 (14-36) U/L ALT 21 (4-34) U/L Alkaline Phosphatase 119 (38-126) U/L Total Protein 7.2 (6.3-8.2) g/dL Albumin 4.4 (3.5-5.0) g/dL <Marques Flores - Last Filed: 10/16/21 12:45> History of Present Illness History of present illness: I have personally seen and examined the patient, reviewed the [facility] /PAs history, exam and MDM and agree with the assessment and plan as written. Based on total visit time, I have performed more than 50% of the visit. As above. CAT scan reviewed. Patient with evidence of metastatic pancreatic cancer with significant volume of abdominal deposits. Possible partial small bowel obstruction related to intraperitoneal tumor deposits. Await oncology evaluation. Patient and her family were requesting transfer to tertiary care center. If the patient stays here we'll consult interventional radiology for percutaneous biopsy. No surgical intervention required at this time. We'll follow. Surgical - Exam Vital Signs Temp Pulse Resp BP Pulse Ox 98.5 F 94 18 130/83 96 10/15/21 21:11 10/15/21 21:11 10/15/21 21:11 10/15/21 21:11 10/15/21 21:11 Results - Labs 10/15/21 21:37 10/15/21 21:37 Abnormal Lab Results - Last 24 Hours (Table) 10/15/21 10/15/21 10/15/21 Range/Units 21:37 21:37 21:37 WBC 14.2 H (3.8-10.6) k/uL Neutrophils # 12.6 H (1.3-7.7) k/uL Lymphocytes # 0.8 L (1.0-4.8) k/uL APTT 21.7 L (22.0-30.0) sec Carbon Dioxide 32 H (22-30) mmol/L BUN 20 H (7-17) mg/dL Creatinine 0.45 L (0.52-1.04) mg/dL Glucose 165 H (74-99) mg/dL POC Glucose (mg/dL) (75-99) mg/dL Lipase 662 H (23-300) U/L Urine Protein (Negative) Urine Ketones (Negative) Urine Blood (Negative) Ur Leukocyte Esterase (Negative) Urine RBC (0-5) /hpf Urine WBC (0-5) /hpf Urine WBC Clumps (None) /hpf Urine Bacteria (None) /hpf Urine Mucus (None) /hpf 10/15/21 10/16/21 10/16/21 Range/Units 22:38 08:17 12:02 WBC (3.8-10.6) k/uL Neutrophils # (1.3-7.7) k/uL Lymphocytes # (1.0-4.8) k/uL APTT (22.0-30.0) sec Carbon Dioxide (22-30) mmol/L BUN (7-17) mg/dL Creatinine (0.52-1.04) mg/dL Glucose (74-99) mg/dL POC Glucose (mg/dL) 202 H 104 H (75-99) mg/dL Lipase (23-300) U/L Urine Protein Trace H (Negative) Urine Ketones 1+ H (Negative) Urine Blood Moderate H (Negative) Ur Leukocyte Esterase Small H (Negative) Urine RBC 13 H (0-5) /hpf Urine WBC 9 H (0-5) /hpf Urine WBC Clumps Rare H (None) /hpf Urine Bacteria Many H (None) /hpf Urine Mucus Occasional H (None) /hpf Diabetes panel 10/15/21 Range/Units 21:37 Sodium 140 (137-145) mmol/L Potassium 3.9 (3.5-5.1) mmol/L Chloride 101 (98-107) mmol/L Carbon Dioxide 32 H (22-30) mmol/L BUN 20 H (7-17) mg/dL Creatinine 0.45 L (0.52-1.04) mg/dL Glucose 165 H (74-99) mg/dL Calcium 9.9 (8.4-10.2) mg/dL AST 28 (14-36) U/L ALT 21 (4-34) U/L Alkaline Phosphatase 119 (38-126) U/L Total Protein 7.2 (6.3-8.2) g/dL Albumin 4.4 (3.5-5.0) g/dL Calcium panel 10/15/21 Range/Units 21:37 Calcium 9.9 (8.4-10.2) mg/dL Albumin 4.4 (3.5-5.0) g/dL Pituitary panel 10/15/21 Range/Units 21:37 Sodium 140 (137-145) mmol/L Potassium 3.9 (3.5-5.1) mmol/L Chloride 101 (98-107) mmol/L Carbon Dioxide 32 H (22-30) mmol/L BUN 20 H (7-17) mg/dL Creatinine 0.45 L (0.52-1.04) mg/dL Glucose 165 H (74-99) mg/dL Calcium 9.9 (8.4-10.2) mg/dL Adrenal panel 10/15/21 Range/Units 21:37 Sodium 140 (137-145) mmol/L Potassium 3.9 (3.5-5.1) mmol/L Chloride 101 (98-107) mmol/L Carbon Dioxide 32 H (22-30) mmol/L BUN 20 H (7-17) mg/dL Creatinine 0.45 L (0.52-1.04) mg/dL Glucose 165 H (74-99) mg/dL Calcium 9.9 (8.4-10.2) mg/dL Total Bilirubin 1.0 (0.2-1.3) mg/dL AST 28 (14-36) U/L ALT 21 (4-34) U/L Alkaline Phosphatase 119 (38-126) U/L Total Protein 7.2 (6.3-8.2) g/dL Albumin 4.4 (3.5-5.0) g/dL
[2021-10-16 12:04] LABS: Glucose,Whole Blood 104 mg/dL (75-99)
[2021-10-16] MEDS: INSULIN ASPART (NovoLOG) 100 UNIT/ML VIAL SQ SCH ×3 (12:05→21:07)
--- NOTE | 2021-10-16 12:25 | XR ---
EXAMINATION TYPE: XR chest 2V DATE OF EXAM: 10/16/2021 COMPARISON: 03/31/2011 INDICATION: Short of breath TECHNIQUE: Frontal and lateral views of the chest are obtained. FINDINGS: The heart size is normal. The pulmonary vasculature is normal. The lungs are clear. IMPRESSION: 1. No acute pulmonary process.
[2021-10-16] MEDS ORDERED: RX INFO: IV CONTRAST WAS GIVEN 1 EACH MISC MISCELLANE PRN (13:09)
--- NOTE | 2021-10-16 13:25 | P.HPIM ---
History of Present Illness H&P Date: 10/16/21 Chief Complaint: Abdominal pain, pancreatic tumor, ascites, bowel obstruction. HISTORY OF PRESENT ILLNESS 70-year-old female one of my office patient with past medical history of mild obesity, type 2 diabetes, history of [place], history of neuropathy, history of hypertension and hyperlipidemia who is known to have history of GERD who has been seen in our office for the last 15 years. Patient was on different trial for diabetic medication including SGLPII products lately she was having significant side effects from Trulicity and Ozempic, patient was doing different trial medication her blood sugar still running quite bed elevated. Apparently she claimed that she had lost over 15 pounds last 6 weeks has not been in office last few weeks at this point ended up calling the answering service last night complaining of significant abdominal pain with no bowel movement for the last 24 hours was instructed to come to the emergency department at [facility] where was seen and evaluated CAT scan of the abdomen was perform showed signif icant finding consistent with large mass in the tail of the pancreatic area along with a few irregular spot in the liver area consistent with metastasis and a few different area in the omentum inside the Peritoneal cavity consistent with metastasis might have been causing bowel obstruction which could have been the cause of her abdominal pain at this point. Patient was started on IV hydration along with pain management kept nothing by mouth will be seen general surgery and oncology. Arrangement for MRCP will be made patient will be going for staging as well has been complaining of slight discomfort in the right side of her forehead area brain MRI will be done also CAT scan of the chest will be done to complete staging for pancreatic cancer at this point CEA and CA 19-9 was requested as well. REVIEW OF SYSTEMS Constitutional: No fever, no chills, no night sweats. No weight change. No weakness, fatigue or lethargy. No daytime sleepiness. EENT: No headache. No blurred vision or double vision, no loss of vision. No loss of Hearing, no ringing in the ears, no dizziness. No nasal drainage or congestion. No epistaxis. No sore throat. Lungs: No shortness of breath, cough, no sputum production. No wheezing. Cardiovascular: No chest pain, no lower extremity edema. No palpitations. No paroxysmal nocturnal dyspnea. No orthopnea. No lightheadedness or dizziness. No syncopal episodes. Abdominal: Positive abdominal pain with nausea no bowel movement significant discomfort lately more bloating sensation. Decrease of appetite and weight loss. Genitourinary: No dysuria, increased frequency, urgency. No urinary retention. Musculoskeletal: No myalgias. No muscle weakness, no gait dysfunction, no frequent falls. No back pain. No neck pain. Integumentary: No wounds, no lesions. No rash or pruritus. No unusual bruising. No change in hair or nails. Neurologic: No aphasia. No facial droop. No change in mentation. No head injury. No headache. No paralysis. No paresthesia. Psychiatric: No depression. No anxiety. No mood swings. Endocrine: No abnormal blood sugars. No weight change. No excessive sweating or thirst. No cold intolerance. SOCIAL HISTORY She quit smoking long time ago was smoker for few years only, does not drink alcohol, she is and lives alone. FAMILY HISTORY She has 2 daughters one of them has colitis. PHYSICAL EXAMINATION Gen: This is a well-developed no acute respiratory distress does not look having any Icteris keratosis or jaundice HEENT: Head is atraumatic, normocephalic. Pupils equal, round. Sclerae is anicteric. NECK: Supple. No JVD. No lymphadenopathy. No thyromegaly. LUNGS: Clear to auscultation. No wheezes or rhonchi. No intercostal retractions. HEART: Regular rate and rhythm. No murmur. ABDOMEN: Soft positive significant discomfort admitted epigastric area and lower abdominal region area as well without any rebound or rigidity, positive sign of ascites as well. EXTREMITIES: No pedal edema. No calf tenderness. NEUROLOGICAL: Patient is awake, alert and oriented x3. Cranial nerves 2 through 12 are grossly intact. ASSESSMENT AND PLAN 1. Acute severe abdominal pain: Secondary to bowel obstruction and pancreatic mass with metastasis along with ascites. Patient will continue pain management with try to keep her from having NG tube at this point consult general surgery. 2 pancreatic tumor: 8 cm tumor exists in the tail of the pancreas with significant sign of metastasis in the Peritoneum along with the liver area, CA 19 9 was requested MRCP will be done and patient be seen oncology. Furthermore staging will be done by doing MRI of the brain along with chest CT. 3 bowel obstruction: Most likely secondary to compression from lymph node enlargement patient be seen general surgery might require NG tube if continue having symptoms might require surgery. 4 history of type 2 diabetes: Will add Accu-Chek with sliding scales coverage, patient will be on Januvia would hold off metformin while patient is going for testing. 5 hyperlipidemia: Has been on Lipitor 10 mg a day. 6 hypertension: Has been on amlodipine 5 mg a day along with losartan 100 mg daily. 7 chronic peripheral diabetic neuropathy: Patient has been on Lyrica 75 mg at bedtime. 8 UTI: UA was positive this point patient will be on Rocephin 1 g daily continue to the cultures completed. 9 GERD/GI prophylaxis: Patient has been on omeprazole 20 mg twice a day she is known to have history of hiatal hernia. 10 DVT prophylaxis: As soon as were done with testing specially patient does not require to go for surgery she'll be on heparin subcutaneous continue Venodyne boots and knee-high CAYDEN hose. CODE STATUS: Full code. Case was discussed with the family the daughter was with the patient at the time another daughter was on the phone with the same time case was discussed as well with Dr. gabriel, patient be seen oncology testing will be done today to decide on further management. Admit patient to the inpatient service for More than 2 night stay. 11. COVID-19 testing. Patient will be admitted to the hospital for a minimum of 2 night stay. Past Medical History Past Medical History: Diabetes Mellitus, GERD/Reflux, Hyperlipidemia, Hypertension Additional Past Medical History / Comment(s): NIDDM type II, neuropathy bilat eral feet, RLS, hiatal hernia History of Any Multi-Drug Resistant Organisms: None Reported Past Surgical History: Bladder Surgery, Cholecystectomy, Hysterectomy Additional Past Surgical History / Comment(s): D&C x2, colonoscopy, cystocele/rectocele Past Anesthesia/Blood Transfusion Reactions: Postoperative Nausea & Vomiting (PONV) Additional Past Anesthesia/Blood Transfusion Reaction / Comment(s): Severe PONV Past Psychological History: Anxiety Additional Psychological History / Comment(s): Pt resides alone. She is ind pendent. Smoking Status: Former smoker Past Alcohol Use History: Occasional Additional Past Alcohol Use History / Comment(s): Pt started smoking in 1964 and quit in 1985. Past Drug Use History: None Reported - Past Family History Mother Family Medical History: Cancer, Hypertension Additional Family Medical History / Comment(s): Mother had brain cancer Father Family Medical History: Cancer Additional Family Medical History / Comment(s): Father was a cigar smoker and had multiple environmental exposures, he from metastatic cancer that had gone to his lungs. Medications and Allergies Home Medications Medication Instructions Recorded Confirmed Type ALPRAZolam [Xanax] 0.25 mg PO BID PRN 10/15/21 10/15/21 History Aspirin EC [Ecotrin Low Dose] 81 mg PO DAILY 10/15/21 10/15/21 History Atorvastatin [Lipitor] 10 mg PO HS 10/15/21 10/15/21 History Calcium Carbonate [Calcium] 600 mg PO DAILY 10/15/21 10/15/21 History Cholecalciferol (Vitamin D3) 125 mcg PO DAILY 10/15/21 10/15/21 History [Vitamin D3 (125 MCG = 5,000 IU)] Dulaglutide [Trulicity] 0.75 mg SQ TU 10/15/21 10/15/21 History Ibuprofen [Motrin] 600 mg PO Q8HR PRN 10/15/21 10/15/21 History Losartan Potassium 100 mg PO DAILY 10/15/21 10/15/21 History Magnesium 250 mg PO DAILY 10/15/21 10/15/21 History Omeprazole [PriLOSEC] 20 mg PO BID 10/15/21 10/15/21 History Pregabalin [Lyrica] 75 mg PO HS 10/15/21 10/15/21 History amLODIPine [Norvasc] 5 mg PO HS 10/15/21 10/15/21 History metFORMIN HCL 500 mg PO BID 10/15/21 10/15/21 History sitaGLIPtin [Januvia] 100 mg PO DAILY 10/15/21 10/15/21 History Allergies Allergy/AdvReac Type Severity Reaction Status Date / Time Sulfa (Sulfonamide Allergy Swelling Verified 10/15/21 22:50 Antibiotics) Physical Exam Vitals: Vital Signs Temp Pulse Pulse Resp BP BP Pulse Ox 10/16/21 07:49 98.6 F 73 16 126/79 96 10/15/21 21:11 98.5 F 94 18 130/83 96 Intake and Output 10/15/21 10/16/21 10/16/21 22:59 06:59 14:59 Other: # Voids 1 Weight 85.729 kg 85.729 kg Results CBC & Chem 7: 10/15/21 21:37 10/15/21 21:37 Labs: Abnormal Lab Results - Last 24 Hours (Table) 10/15/21 10/15/21 10/15/21 Range/Units 21:37 21:37 21:37 WBC 14.2 H (3.8-10.6) k/uL Neutrophils # 12.6 H (1.3-7.7) k/uL Lymphocytes # 0.8 L (1.0-4.8) k/uL APTT 21.7 L (22.0-30.0) sec Carbon Dioxide 32 H (22-30) mmol/L BUN 20 H (7-17) mg/dL Creatinine 0.45 L (0.52-1.04) mg/dL Glucose 165 H (74-99) mg/dL POC Glucose (mg/dL) (75-99) mg/dL Lipase 662 H (23-300) U/L Carcinoembryonic Ag (0.0-4.9) ng/mL Urine Protein (Negative) Urine Ketones (Negative) Urine Blood (Negative) Ur Leukocyte Esterase (Negative) Urine RBC (0-5) /hpf Urine WBC (0-5) /hpf Urine WBC Clumps (None) /hpf Urine Bacteria (None) /hpf Urine Mucus (None) /hpf 10/15/21 10/16/21 10/16/21 Range/Units 22:38 07:06 08:17 WBC (3.8-10.6) k/uL Neutrophils # (1.3-7.7) k/uL Lymphocytes # (1.0-4.8) k/uL APTT (22.0-30.0) sec Carbon Dioxide (22-30) mmol/L BUN (7-17) mg/dL Creatinine (0.52-1.04) mg/dL Glucose (74-99) mg/dL POC Glucose (mg/dL) 202 H (75-99) mg/dL Lipase (23-300) U/L Carcinoembryonic Ag 233.0 H (0.0-4.9) ng/mL Urine Protein Trace H (Negative) Urine Ketones 1+ H (Negative) Urine Blood Moderate H (Negative) Ur Leukocyte Esterase Small H (Negative) Urine RBC 13 H (0-5) /hpf Urine WBC 9 H (0-5) /hpf Urine WBC Clumps Rare H (None) /hpf Urine Bacteria Many H (None) /hpf Urine Mucus Occasional H (None) /hpf 10/16/21 Range/Units 12:02 WBC (3.8-10.6) k/uL Neutrophils # (1.3-7.7) k/uL Lymphocytes # (1.0-4.8) k/uL APTT (22.0-30.0) sec Carbon Dioxide (22-30) mmol/L BUN (7-17) mg/dL Creatinine (0.52-1.04) mg/dL Glucose (74-99) mg/dL POC Glucose (mg/dL) 104 H (75-99) mg/dL Lipase (23-300) U/L Carcinoembryonic Ag (0.0-4.9) ng/mL Urine Protein (Negative) Urine Ketones (Negative) Urine Blood (Negative) Ur Leukocyte Esterase (Negative) Urine RBC (0-5) /hpf Urine WBC (0-5) /hpf Urine WBC Clumps (None) /hpf Urine Bacteria (None) /hpf Urine Mucus (None) /hpf Thrombosis Risk Factor Assmnt - Choose All That Apply Any of the Below Risk Factors Present?: Yes Each Factor Represents 1 point: Obesity (BMI >25) Other Risk Factors: Yes Each Risk Factor Represents 2 Points: Age 61-74 years Other congenital or acquired thrombophilia - If yes, enter type in comment: No Thrombosis Risk Factor Assessment Total Risk Factor Score: 3 Thrombosis Risk Factor Assessment Level: Moderate Risk
--- NOTE | 2021-10-16 14:12 | P.CONS ---
History of Present Illness - Reason for Consult Consult date: 10/16/21 Pancreatic Mass Requesting physician: Francine Sharma - Chief Complaint abdominal Pain - History of Present Illness Mrs. Christie is a pleasant female who noticed to have some changes in bowels a few months ago, some intermittent nausea, without vomiting. Over the past few we eks she has had associated abdominal pain and the above symptoms worsened. She was recently started on a new medication for diabetes, therefore she was initially relating these symptoms to the new medication, in addition she has also had approx 20-25lb unintentional weight loss. On admission a CT of abdomen performed and revealed a large pancreatic tail mass, suspicious lesions in omentum and liver. The picture appears highly suspicious for a metastatic malignant process, likely pancreatic cancer. This was reviewed in detail with patient and all questions answered, understanding if this is a metastatic pancreatic cancer that the goal of treatment options would be palliative only intent. Review of Systems All systems: negative Constitutional: Reports as per HPI Past Medical History Past Medical History: Diabetes Mellitus, GERD/Reflux, Hyperlipidemia, Hypertension Additional Past Medical History / Comment(s): NIDDM type II, neuropathy bilateral feet, RLS, hiatal hernia History of Any Multi-Drug Resistant Organisms: None Reported Past Surgical History: Bladder Surgery, Cholecystectomy, Hysterectomy Additional Past Surgical History / Comment(s): D&C x2, colonoscopy, cystocele/rectocele Past Anesthesia/Blood Transfusion Reactions: Postoperative Nausea & Vomiting (PONV) Additional Past Anesthesia/Blood Transfusion Reaction / Comm: Severe PONV Past Psychological History: Anxiety Additional Psychological History / Comment(s): Pt resides alone. She is indpendent. Smoking Status: Former smoker Past Alcohol Use History: Occasional Additional Past Alcohol Use History / Comment(s): Pt started smoking in 1964 and quit in 1985. Past Drug Use History: None Reported - Past Family History Mother Family Medical History: Cancer, Hypertension Additional Family Medical History / Comment(s): Mother had brain cancer Father Family Medical History: Cancer Additional Family Medical History / Comment(s): Father was a cigar smoker and had multiple environmental exposures, he from metastatic cancer that had gone to his lungs. Medications and Allergies Home Medications Medication Instructions Recorded Confirmed Type ALPRAZolam [Xanax] 0.25 mg PO BID PRN 10/15/21 10/15/21 History Aspirin EC [Ecotrin Low Dose] 81 mg PO DAILY 10/15/21 10/15/21 History Atorvastatin [Lipitor] 10 mg PO HS 10/15/21 10/15/21 History Calcium Carbonate [Calcium] 600 mg PO DAILY 10/15/21 10/15/21 History Cholecalciferol (Vitamin D3) 125 mcg PO DAILY 10/15/21 10/15/21 History [Vitamin D3 (125 MCG = 5,000 IU)] Dulaglutide [Trulicity] 0.75 mg SQ TU 10/15/21 10/15/21 History Ibuprofen [Motrin] 600 mg PO Q8HR PRN 10/15/21 10/15/21 History Losartan Potassium 100 mg PO DAILY 10/15/21 10/15/21 History Magnesium 250 mg PO DAILY 10/15/21 10/15/21 History Omeprazole [PriLOSEC] 20 mg PO BID 10/15/21 10/15/21 History Pregabalin [Lyrica] 75 mg PO HS 10/15/21 10/15/21 History amLODIPine [Norvasc] 5 mg PO HS 10/15/21 10/15/21 History metFORMIN HCL 500 mg PO BID 10/15/21 10/15/21 History sitaGLIPtin [Januvia] 100 mg PO DAILY 10/15/21 10/15/21 History Allergies Allergy/AdvReac Type Severity Reaction Status Date / Time Sulfa (Sulfonamide Allergy Swelling Verified 10/15/21 22:50 Antibiotics) Physical Exam Vitals: Vital Signs Temp Pulse Pulse Resp BP BP Pulse Ox 10/16/21 07:49 98.6 F 73 16 126/79 96 10/15/21 21:11 98.5 F 94 18 130/83 96 Intake and Output 10/15/21 10/16/21 10/16/21 22:59 06:59 14:59 Other: # Voids 1 Weight 85.729 kg 85.729 kg Lesions on scalp - Constitutional General appearance: cooperative, no acute distress - EENT Eyes: EOMI ENT: NA/AT - Neck Neck: normal ROM - Respiratory Respiratory: bilateral: diminished - Cardiovascular Rhythm: regularly irregular - Gastrointestinal General gastrointestinal: distended, tenderness - Neurologic Neurologic: CNII-XII intact - Musculoskeletal Musculoskeletal: generalized weakness - Psychiatric Psychiatric: A&O x's 3, appropriate affect, intact judgment & insight Results CBC & Chem 7: 10/15/21 21:37 10/15/21 21:37 Labs: Abnormal Lab Results - Last 24 Hours (Table) 10/15/21 10/15/21 10/15/21 Range/Units 21:37 21:37 21:37 WBC 14.2 H (3.8-10.6) k/uL Neutrophils # 12.6 H (1.3-7.7) k/uL Lymphocytes # 0.8 L (1.0-4.8) k/uL APTT 21.7 L (22.0-30.0) sec Carbon Dioxide 32 H (22-30) mmol/L BUN 20 H (7-17) mg/dL Creatinine 0.45 L (0.52-1.04) mg/dL Glucose 165 H (74-99) mg/dL POC Glucose (mg/dL) (75-99) mg/dL Lipase 662 H (23-300) U/L Carcinoembryonic Ag (0.0-4.9) ng/mL CA 19-9 Antigen (0.0-34.9) U/mL Urine Protein (Negative) Urine Ketones (Negative) Urine Blood (Negative) Ur Leukocyte Esterase (Negative) Urine RBC (0-5) /hpf Urine WBC (0-5) /hpf Urine WBC Clumps (None) /hpf Urine Bacteria (None) /hpf Urine Mucus (None) /hpf 10/15/21 10/16/21 10/16/21 Range/Units 22:38 07:06 07:06 WBC (3.8-10.6) k/uL Neutrophils # (1.3-7.7) k/uL Lymphocytes # (1.0-4.8) k/uL APTT (22.0-30.0) sec Carbon Dioxide (22-30) mmol/L BUN (7-17) mg/dL Creatinine (0.52-1.04) mg/dL Glucose (74-99) mg/dL POC Glucose (mg/dL) (75-99) mg/dL Lipase (23-300) U/L Carcinoembryonic Ag 233.0 H (0.0-4.9) ng/mL CA 19-9 Antigen >19024.0 H (0.0-34.9) U/mL Urine Protein Trace H (Negative) Urine Ketones 1+ H (Negative) Urine Blood Moderate H (Negative) Ur Leukocyte Esterase Small H (Negative) Urine RBC 13 H (0-5) /hpf Urine WBC 9 H (0-5) /hpf Urine WBC Clumps Rare H (None) /hpf Urine Bacteria Many H (None) /hpf Urine Mucus Occasional H (None) /hpf 10/16/21 10/16/21 Range/Units 08:17 12:02 WBC (3.8-10.6) k/uL Neutrophils # (1.3-7.7) k/uL Lymphocytes # (1.0-4.8) k/uL APTT (22.0-30.0) sec Carbon Dioxide (22-30) mmol/L BUN (7-17) mg/dL Creatinine (0.52-1.04) mg/dL Glucose (74-99) mg/dL POC Glucose (mg/dL) 202 H 104 H (75-99) mg/dL Lipase (23-300) U/L Carcinoembryonic Ag (0.0-4.9) ng/mL CA 19-9 Antigen (0.0-34.9) U/mL Urine Protein (Negative) Urine Ketones (Negative) Urine Blood (Negative) Ur Leukocyte Esterase (Negative) Urine RBC (0-5) /hpf Urine WBC (0-5) /hpf Urine WBC Clumps (None) /hpf Urine Bacteria (None) /hpf Urine Mucus (None) /hpf CT scan - abdomen: report reviewed CT scan - pelvis: report reviewed Assessment and Plan (1) Abdominal pain Current Visit: Yes Status: Acute Code(s): R10.9 - UNSPECIFIED ABDOMINAL PAIN SNOMED Code(s): 12284620 (2) Pancreatic mass Current Visit: Yes Status: Acute Code(s): K86.89 - OTHER SPECIFIED DISEASES OF PANCREAS SNOMED Code(s): 993801564 Plan: Review of CT scan with evidence of large pancreatic tail mass and multiple hypodensities concerning for metastic disease. Surgery is following Await CT chest for accessible metastatic lesion for tissue biopsy. Further recs to follow after tissue diagnosis Ca 19-9 >19499 MRI Brain negative for metastatic disease IR to biopsy omental or liver lesion for definitive diagnosis Physician Attest: I have completed the full history and physical and agree with above dictation, dictated as a scribe
--- NOTE | 2021-10-16 15:42 | MR ---
EXAMINATION TYPE: MR brain wo/w con DATE OF EXAM: 10/16/2021 COMPARISON: None HISTORY: Brain metastasis, pancreatic mass TECHNIQUE: Multiplanar, multisequence images of the brain and brainstem is performed without and with IV contras t, utilizing 8 mL intravenous Gadavist . FINDINGS: Diffusion weighted images demonstrate no evidence of a recent infarct or other diffusion ab normality. There is no extra-axial fluid collection. There is hyperintensity present on inversion r ecovery T2-weighted sequences within the [place], periventricular and subcortical white matter, approxim ately 50 lesions are present. The ventricular system and cisternal spaces are normal in size and appe arance. The brain volume is age appropriate, there is cortical atrophy. Midline structures demonstrate partially empty sella. The craniocervical junction appears within nor mal limits. Post contrast images demonstrate no abnormal enhancement. The dural venous sinuses appea r patent. The visualized sinuses are clear and the globes are intact. IMPRESSION: Age-related changes of atrophy and chronic small vessel ischemia. Partially empty sella. No subacute ischemia is evident.
--- NOTE | 2021-10-16 16:03 | MR ---
MR pancreas with and without contrast, MRCP HISTORY: Pancreatic mass Multiplanar multisequence and postcontrast images obtained through the pancreas, patient received 8 c c Gadavist IV. Three-dimensional reconstructions were performed on an alternate workstation through t biliary system. Correlation to CT scan 10/15/2021 The previously described irregular pancreatic mass at the level of the tail is again seen, there is e ncasement of the patient's splenic artery, abnormal soft tissue extends into the region of the spleni c hilum and abuts the left kidney anteriorly, there is loss of fat planes at these levels as well as extension and loss of fat plane at the level of the inferior margin of the stomach, coronal image #47 . The mass measures approximately 13 cm in AP dimension by 7.5 cm in transverse dimension by approxim ately 7.5 centimeters in cephalad to caudal dimension. There is a varix along the mesentery perhaps r elated to collateralization due to involvement of mesenteric vasculature by the tumor. The mass shows somewhat heterogeneous enhancement. The biliary system shows no abnormal filling defect, there is no pancreatic dilatation. There is some ascites present. Ring-enhancing masses are present within the liver corresponding to CT abnormalities, at least 3-6 di screte lesions are identified. Mesenteric masses seen on CT are also again noted, not entirely includ ed as on CT and consistent with metastatic disease. There is a hiatal hernia. Root of the aorta is borderline aneurysmal. There are no pleural effusions. Partial intrathoracic stomach is present. IMPRESSION: Pancreatic carcinoma with metastatic disease
[2021-10-16 18:05] LABS: Glucose,Whole Blood 112 mg/dL (75-99)
[2021-10-16 20:44] LABS: Glucose,Whole Blood 125 mg/dL (75-99)
[2021-10-16] MEDS: amLODIPine 10 MG TAB PO SCH (21:07)
[2021-10-16] MEDS: ATORVASTATIN 10 MG TAB PO SCH (21:07)
[2021-10-16] MEDS: PREGABALIN 75 MG CAP PO SCH (21:08)
[2021-10-16 23:00] LABS: African American GFR (CKD) >90 (>60 ml/min/1.73 sqM); Anion Gap 6 mmol/L; Blood Urea Nitrogen 10 mg/dL (7-17); Calcium 8.7 mg/dL (8.4-10.2); Carbon Dioxide 27 mmol/L (22-30); Chloride 105 mmol/L (98-107); Glucose 119 mg/dL (74-99); Non-African American GFR(CKD) >90 (>60 ml/min/1.73 sqM); Potassium 3.3 mmol/L (3.5-5.1); Sodium 138 mmol/L (137-145)
[2021-10-17] MEDS: SODIUM CHLORIDE 0.9% 1,000 ML IV SCH (03:08)
--- NOTE | 2021-10-17 03:14 | CT ---
EXAMINATION TYPE: CT chest w con DATE OF EXAM: 10/17/2021 COMPARISON: None HISTORY: ca Pancreatic cancer. Short of breath CT DLP: 622.44 mGycm Automated exposure control for dose reduction was used. CONTRAST: Performed with IV Contrast, patient injected with 100 mL of Isovue 300. Images obtained from the thoracic inlet to the diaphragm with IV contrast. There are Three-D postproc essed images. The lungs are clear of infiltrate. There is no evidence of a pulmonary mass. There is hiatal hernia t hat contains fluid. Heart size is normal. There is no pericardial effusion. There is no mediastinal adenopathy. There are no hilar masses. There is normal contrast opacification of the pulmonary arteries. There is no evidence of filling defect. 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 There is no dissection. The thoracic spine appears intact. There is no compression fracture. Sternum is intact. There are hyp odensities in the liver that measure up to 1.5 cm. There is a large irregular mass in the pancreatic tail not changed compared to CT scan 2 days ago. There is mild abdominal ascites. There is fluid in t he paracolic gutters. The upper abdominal images show increased soft tissue density in the omental fa t in the anterior upper abdomen consistent with carcinomatosis. IMPRESSION: No evidence of pulmonary embolism. Findings in the abdomen not changed compared to recent CT scan. No suspicious pulmonary mass.
[2021-10-17 07:04] LABS: Basophils % (A) 1 %; Eosinophils # (A) 0.3 k/uL (0-0.7); Eosinophils % (A) 6 %; HCT 41.2 % (34.0-46.0); HGB 12.8 gm/dL (11.4-16.0); Hypochromasia Slight; Lymphocytes % (A) 21 %; MCH 27.7 pg (25.0-35.0); MCHC 30.9 g/dL (31.0-37.0); MCV 89.4 fL (80.0-100.0); Mean Platelet Volume 7.7; Monocytes # (A) 0.3 k/uL (0-1.0); Monocytes % (A) 7 %; Neutrophils % (A) 63 %; Platelet Count 219 k/uL (150-450); RBC 4.61 m/uL (3.80-5.40); RDW 14.1 % (11.5-15.5); WBC 4.7 k/uL (3.8-10.6)
[2021-10-17 07:45] LABS: Glucose,Whole Blood 117 mg/dL (75-99)
[2021-10-17] MEDS: INSULIN ASPART (NovoLOG) 100 UNIT/ML VIAL SQ SCH ×4 (08:14→21:40)
[2021-10-17] MEDS: polyethylene glycoL 3350 17 GM POWD.PACK PO SCH (09:02)
[2021-10-17] MEDS: MAGNESIUM OXIDE 400 MG TAB PO SCH (09:02)
[2021-10-17] MEDS: PANTOPRAZOLE 40 MG TABLET PO SCH ×2 (09:02→21:40)
[2021-10-17] MEDS: SENNOSIDES 8.6 MG TAB PO SCH ×2 (09:02→21:40)
[2021-10-17] MEDS: LOSARTAN 50 MG TAB PO SCH (09:02)
[2021-10-17] MEDS: CALCIUM CARBONATE 500 MG CHEWABLE PO SCH (09:02)
[2021-10-17] MEDS: CHOLECALCIFEROL 125 MCG (5000 IU) TABLET PO SCH (09:02)
[2021-10-17] MEDS ORDERED: MAGNESIUM CITRATE 296 ML BOTTLE PO ONE (10:55)
--- NOTE | 2021-10-17 10:57 | P.PN ---
Subjective Progress Note Date: 10/17/21 Principal diagnosis: Pancreatic mass with abdominal pain Patient doing better today. Less pain. Feels less bloated. She is passing flatus. No bowel movement. Pancreatic and brain MRI results noted, CT chest results noted. Patient's CA-19-9 significantly elevated. Has been seen by oncology. Objective - Vital Signs Vital signs: Vital Signs Temp 98.3 F 10/17/21 04:33 Pulse 62 10/17/21 04:33 Resp 16 10/17/21 04:33 BP 138/71 10/17/21 04:33 Pulse Ox 97 10/17/21 04:33 Intake & Output 10/16/21 10/17/21 10/17/21 18:59 06:59 18:59 Intake Total 900 Balance 900 Weight 85.729 kg Intake: Intake, IV Titration 900 Amount Sodium Chloride 0.9% 1, 900 000 ml @ 75 mls/hr IV . [id number] [facility] Rx#:[id number] Other: Voiding Method Toilet Toilet # Voids 1 - Exam Abdomen: Soft, mild left upper quadrant tenderness, mild distention, - Labs CBC & Chem 7: 10/17/21 06:30 10/16/21 22:15 Labs: Abnormal Lab Results - Last 24 Hours (Table) 10/16/21 10/16/21 10/16/21 Range/Units 07:06 07:06 12:02 MCHC (31.0-37.0) g/dL Potassium (3.5-5.1) mmol/L Creatinine (0.52-1.04) mg/dL Glucose (74-99) mg/dL POC Glucose (mg/dL) 104 H (75-99) mg/dL Carcinoembryonic Ag 233.0 H (0.0-4.9) ng/mL CA 19-9 Antigen >68170.0 H (0.0-34.9) U/mL 10/16/21 10/16/21 10/16/21 Range/Units 17:58 20:24 22:15 MCHC (31.0-37.0) g/dL Potassium 3.3 L (3.5-5.1) mmol/L Creatinine 0.47 L (0.52-1.04) mg/dL Glucose 119 H (74-99) mg/dL POC Glucose (mg/dL) 112 H 125 H (75-99) mg/dL Carcinoembryonic Ag (0.0-4.9) ng/mL CA 19-9 Antigen (0.0-34.9) U/mL 10/17/21 10/17/21 Range/Units 06:30 07:38 MCHC 30.9 L (31.0-37.0) g/dL Potassium (3.5-5.1) mmol/L Creatinine (0.52-1.04) mg/dL Glucose (74-99) mg/dL POC Glucose (mg/dL) 117 H (75-99) mg/dL Carcinoembryonic Ag (0.0-4.9) ng/mL CA 19-9 Antigen (0.0-34.9) U/mL Assessment and Plan (1) Abdominal pain Narrative/Plan: Clinical scenario again discussed with the patient and her family at the bedside. 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 May resume regular diet in the form of a dysphagia low fiber diet at this time. She does have a mild to moderate volume of stool throughout the colon. She had good success with magnesium citrate 1-2 months ago. We will give a half bottle of magnesium citrate now to initiate cleansing of the colon. Agree with plans for percutaneous biopsy. Current Visit: Yes Status: Acute Code(s): R10.9 - UNSPECIFIED ABDOMINAL PAIN SNOMED Code(s): 53359312
--- NOTE | 2021-10-17 11:49 | P.PN ---
Subjective Progress Note Date: 10/17/21 HISTORY OF PRESENT ILLNESS 70-year-old female one of my office patient with past medical history of mild obesity, type 2 diabetes, history of Sotomayor, history of neuropathy, history of hypertension and hyperlipidemia who is known to have history of GERD who has been seen in our office for the last 15 years. Patient was on different trial for diabetic medication including SGLPII products lately she was having significant side effects from Trulicity and Ozempic, patient was doing different trial medication her blood sugar still running quite bed elevated. Apparently she claimed that she had lost over 15 pounds last 6 weeks has not been in office last few weeks at this point ended up calling the answering service last night complaining of significant abdominal pain with no bowel movement for the last 24 hours was instructed to come to the emergency department at [facility] where was seen and evaluated CAT scan of the abdomen was perform showed significant finding consistent with large mass in the tail of the pancreatic area along with a few irregular spot in the liver area consistent with metastasis and a few different area in the omentum inside the Peritoneal cavity consistent with metastasis might have been causing bowel obstruction which could have been the cause of her abdominal pain at this point. Patient was started on IV hydration along with pain management kept nothing by mouth will be seen general surgery and oncology. Arrangement for MRCP will be made patient will be going for staging as well has been complaining of slight discomfort in the right side of her forehead area brain MRI will be done also CAT scan of the chest will be done to complete staging for pancreatic cancer at this point CEA and CA 19-9 was requested as well. 10/17: Patient is found resting comfortably in bed in no acute distress. She is tolerating her meals with no nausea or vomiting her pain has significantly improved. Patient continues not to have a bowel movement. We will add MiraLAX and Senokot to her regime of Colace at this time. She is scheduled for core biopsy on Tuesday. Changes to her glucose medications will include DC oral agents and start Levemir 10 mg twice a day with a sliding scale of NovoLog for coverage. Discussed with patient in great length possible options and to leave options open until after the core biopsy is complete. Patient verbalized understanding. Spoke with the daughter yesterday regarding results and awaiting testing. CT of the chest was negative for any pulmonary masses. Patient remains afebrile, heart rate 62, respirations 16, blood pressure 138/71 pulse ox 97% on room air REVIEW OF SYSTEMS Constitutional: No fever, no chills, no night sweats. No weight change. No weakness, fatigue or lethargy. No daytime sleepiness. EENT: No headache. No blurred vision or double vision, no loss of vision. No loss of Hearing, no ringing in the ears, no dizziness. No nasal drainage or co ngestion. No epistaxis. No sore throat. Lungs: No shortness of breath, cough, no sputum production. No wheezing. Cardiovascular: No chest pain, no lower extremity edema. No palpitations. No paroxysmal nocturnal dyspnea. No orthopnea. No lightheadedness or dizziness. No syncopal episodes. Abdominal: Positive abdominal pain with nausea -resolved no bowel movement significant discomfort lately more bloating sensation. Decrease of appetite and weight loss. Genitourinary: No dysuria, increased frequency, urgency. No urinary retention. Musculoskeletal: No myalgias. No muscle weakness, no gait dysfunction, no frequent falls. No back pain. No neck pain. Integumentary: No wounds, no lesions. No rash or pruritus. No unusual bruising. No change in hair or nails. Neurologic: No aphasia. No facial droop. No change in mentation. No head injury. No headache. No paralysis. No paresthesia. Psychiatric: No depression. No anxiety. No mood swings. Endocrine: No abnormal blood sugars. No weight change. No excessive sweating or thirst. No cold intolerance. PHYSICAL EXAMINATION Gen: This is a well-developed no acute respiratory distress does not look having any Icteris keratosis or jaundice HEENT: Head is atraumatic, normocephalic. Pupils equal, round. Sclerae is anicteric. NECK: Supple. No JVD. No lymphadenopathy. No thyromegaly. LUNGS: Clear to auscultation. No wheezes or rhonchi. No intercostal retractions. HEART: Regular rate and rhythm. No murmur. ABDOMEN: Soft positive significant discomfort admitted epigastric area and lower abdominal region area as well without any rebound or rigidity, positive sign of ascites as well. EXTREMITIES: No pedal edema. No calf tenderness. NEUROLOGICAL: Patient is awake, alert and oriented x3. Cranial nerves 2 through 12 are grossly intact. ASSESSMENT AND PLAN 1. Acute severe abdominal pain: Secondary to bowel obstruction and pancreatic mass with metastasis along with ascites. Patient will continue pain management with try to keep her from having NG tube at this point consult general surgery appreciated. 2 pancreatic tumor: 8 cm tumor exists in the tail of the pancreas with significant sign of metastasis in the Peritoneum along with the liver area, CA 19 9 was requested MRCP will be done and patient be seen oncology. Furthermore staging will be done by doing MRI of the brain along with chest CT. Core biopsy scheduled for Tuesday 3 bowel obstruction: Most likely secondary to compression from lymph node enlargement patient be seen general surgery might require NG tube if continue having symptoms might require surgery. 4 history of type 2 diabetes: Will add Accu-Chek with sliding scales coverage,Januvia discontinued, start Levemir 10 mg twice a day, continue NovoLog sliding scale as needed. 5 hyperlipidemia: Has been on Lipitor 10 mg a day. 6 hypertension: Has been on amlodipine 5 mg a day along with losartan 100 mg daily. 7 chronic peripheral diabetic neuropathy: Patient has been on Lyrica 75 mg at bedtime. 8 UTI: UA was positive this point patient will be on Rocephin 1 g daily continue to the cultures completed. 9 GERD/GI prophylaxis: Patient has been on omeprazole 20 mg twice a day she is known to have history of hiatal hernia. 10 DVT prophylaxis: As soon as were done with testing specially patient does not require to go for surgery she'll be on heparin subcutaneous continue Venodyne boots and knee-high CAYDEN hose. 11. COVID-19 testing. CODE STATUS: Full code. Admit patient to the inpatient service for More than 2 night stay. Patient will be admitted to the hospital for a minimum of 2 night stay. Impression and plan of care have been directed as dictated by the signing physician. Bev Lemus nurse practitioner acting as scribe for signing physician. Objective - Vital Signs Vital signs: Vital Signs Temp 98.3 F 10/17/21 04:33 Pulse 62 10/17/21 04:33 Resp 16 10/17/21 04:33 BP 138/71 10/17/21 04:33 Pulse Ox 97 10/17/21 04:33 Intake & Output 10/16/21 10/17/21 10/17/21 18:59 06:59 18:59 Intake Total 900 Balance 900 Weight 85.729 kg Intake: Intake, IV Titration 900 Amount Sodium Chloride 0.9% 1, 900 000 ml @ 75 mls/hr IV . [id number] [facility] Rx#:[id number] Other: Voiding Method Toilet Toilet # Voids 1 - Labs CBC & Chem 7: 10/17/21 06:30 10/16/21 22:15 Labs: Abnormal Lab Results - Last 24 Hours (Table) 10/16/21 10/16/21 10/16/21 Range/Units 07:06 07:06 12:02 MCHC (31.0-37.0) g/dL Potassium (3.5-5.1) mmol/L Creatinine (0.52-1.04) mg/dL Glucose (74-99) mg/dL POC Glucose (mg/dL) 104 H (75-99) mg/dL Carcinoembryonic Ag 233.0 H (0.0-4.9) ng/mL CA 19-9 Antigen >37199.0 H (0.0-34.9) U/mL 10/16/21 10/16/21 10/16/21 Range/Units 17:58 20:24 22:15 MCHC (31.0-37.0) g/dL Potassium 3.3 L (3.5-5.1) mmol/L Creatinine 0.47 L (0.52-1.04) mg/dL Glucose 119 H (74-99) mg/dL POC Glucose (mg/dL) 112 H 125 H (75-99) mg/dL Carcinoembryonic Ag (0.0-4.9) ng/mL CA 19-9 Antigen (0.0-34.9) U/mL 10/17/21 10/17/21 Range/Units 06:30 07:38 MCHC 30.9 L (31.0-37.0) g/dL Potassium (3.5-5.1) mmol/L Creatinine (0.52-1.04) mg/dL Glucose (74-99) mg/dL POC Glucose (mg/dL) 117 H (75-99) mg/dL Carcinoembryonic Ag (0.0-4.9) ng/mL CA 19-9 Antigen (0.0-34.9) U/mL
[2021-10-17 12:01] LABS: African American GFR (CKD) 108.2 (60.0-200.0); Anion Gap 11.1 mmol/L (10.00-18.00); BUN/Creat Ratio 13.18 Ratio (12.00-20.00); Blood Urea Nitrogen 7.3 mg/dL (9.0-27.0); Calcium 8.8 mg/dL (8.7-10.3); Carbon Dioxide 26.5 mmol/L (20.0-27.5); Non-African American GFR(CKD) 93.4 (60.0-200.0); Potassium 4.1 mmol/L (3.5-5.5)
[2021-10-17 13:02] LABS: Glucose,Whole Blood 106 mg/dL (75-99)
[2021-10-17 15:05] VITALS: BMI 32.4
[2021-10-17 17:35] LABS: Glucose,Whole Blood 126 mg/dL (75-99)
[2021-10-17 20:11] LABS: Glucose,Whole Blood 167 mg/dL (75-99)
[2021-10-17] MEDS: amLODIPine 10 MG TAB PO SCH (21:39)
[2021-10-17] MEDS: ATORVASTATIN 10 MG TAB PO SCH (21:39)
[2021-10-17] MEDS: ALPRAZolam 0.25 MG TAB PO PRN (21:40)
[2021-10-17] MEDS: INSULIN DETEMIR (LEVEMIR) 100 UNIT/ML SYR SQ SCH (21:40)
[2021-10-17] MEDS: PREGABALIN 75 MG CAP PO SCH (21:40)
[2021-10-18 00:25] LABS: Glucose,Whole Blood 110 mg/dL (75-99)
[2021-10-18 07:33] LABS: Glucose,Whole Blood 119 mg/dL (75-99)
[2021-10-18] MEDS: INSULIN ASPART (NovoLOG) 100 UNIT/ML VIAL SQ SCH ×4 (07:44→21:04)
[2021-10-18] MEDS: CHOLECALCIFEROL 125 MCG (5000 IU) TABLET PO SCH (09:09)
[2021-10-18] MEDS: LOSARTAN 50 MG TAB PO SCH (09:09)
[2021-10-18] MEDS: polyethylene glycoL 3350 17 GM POWD.PACK PO SCH (09:09)
[2021-10-18] MEDS: INSULIN DETEMIR (LEVEMIR) 100 UNIT/ML SYR SQ SCH ×2 (09:09→21:05)
[2021-10-18] MEDS: CALCIUM CARBONATE 500 MG CHEWABLE PO SCH (09:09)
[2021-10-18] MEDS: SENNOSIDES 8.6 MG TAB PO SCH ×2 (09:09→21:05)
[2021-10-18] MEDS: MAGNESIUM OXIDE 400 MG TAB PO SCH (09:09)
[2021-10-18] MEDS: PANTOPRAZOLE 40 MG TABLET PO SCH ×2 (09:10→21:05)
--- NOTE | 2021-10-18 10:35 | P.PN ---
Subjective Progress Note Date: 10/18/21 Principal diagnosis: Pancreatic mass with abdominal pain Patient doing well today. Patient was able to have 2 bowel movements. She drank one half bottle of magnesium citrate. No cramps. No nausea or vomiting. Tolerating diet thus far. Pain is definitely improved. Objective - Vital Signs Vital signs: Vital Signs Temp 98.2 F 10/18/21 04:07 Pulse 70 10/18/21 04:07 Resp 16 10/18/21 04:07 BP 125/78 10/18/21 04:07 Pulse Ox 95 10/18/21 04:07 Intake & Output 10/17/21 10/18/21 10/18/21 18:59 06:59 18:59 Weight 85.729 kg Other: Voiding Method Toilet Toilet # Voids 2 # Bowel Movements 1 - Exam Patient doing well at this time. Continue analgesics and stool softeners. Await biopsies tomorrow. Probable discharge after biopsy tomorrow. - Labs CBC & Chem 7: 10/17/21 06:30 10/17/21 06:30 Labs: Abnormal Lab Results - Last 24 Hours (Table) 10/17/21 10/17/21 10/17/21 Range/Units 06:30 13:00 17:20 BUN 7.3 L (9.0-27.0) mg/dL Glucose 134 H (70-110) mg/dL POC Glucose (mg/dL) 106 H 126 H (75-99) mg/dL 10/17/21 10/18/21 10/18/21 Range/Units 20:08 00:11 07:31 BUN (9.0-27.0) mg/dL Glucose (70-110) mg/dL POC Glucose (mg/dL) 167 H 110 H 119 H (75-99) mg/dL Assessment and Plan (1) Abdominal pain Current Visit: Yes Status: Acute Code(s): R10.9 - UNSPECIFIED ABDOMINAL PAIN SNOMED Code(s): 64265313
[2021-10-18 12:06] LABS: Glucose,Whole Blood 111 mg/dL (75-99)
--- NOTE | 2021-10-18 13:28 | P.PN ---
Subjective Progress Note Date: 10/18/21 HISTORY OF PRESENT ILLNESS 70-year-old female one of my office patient with past medical history of mild obesity, type 2 diabetes, history of Sotomayor, history of neuropathy, history of hypertension and hyperlipidemia who is known to have history of GERD who has been seen in our office for the last 15 years. Patient was on different trial for diabetic medication including SGLPII products lately she was having significant side effects from Trulicity and Ozempic, patient was doing different trial medication her blood sugar still running quite bed elevated. Apparently she claimed that she had lost over 15 pounds last 6 weeks has not been in office last few weeks at this point ended up calling the answering service last night complaining of significant abdominal pain with no bowel movement for the last 24 hours was instructed to come to the emergency department at [facility] where was seen and evaluated CAT scan of the abdomen was perform showed significant finding consistent with large mass in the tail of the pancreatic area along with a few irregular spot in the liver area consistent with metastasis and a few different area in the omentum inside the Peritoneal cavity consistent with metastasis might have been causing bowel obstruction which could have been the cause of her abdominal pain at this point. Patient was started on IV hydration along with pain management kept nothing by mouth will be seen general surgery and oncology. Arrangement for MRCP will be made patient will be going for staging as well has been complaining of slight discomfort in the right side of her forehead area brain MRI will be done also CAT scan of the chest will be done to complete staging for pancreatic cancer at this point CEA and CA 19-9 was requested as well. 10/17: Patient is found resting comfortably in bed in no acute distress. She is tolerating her meals with no nausea or vomiting her pain has significantly improved. Patient continues not to have a bowel movement. We will add MiraLAX and Senokot to her regime of Colace at this time. She is scheduled for core biopsy on Tuesday. Changes to her glucose medications will include DC oral agents and start Levemir 10 mg twice a day with a sliding scale of NovoLog for coverage. Discussed with patient in great length possible options and to leave options open until after the core biopsy is complete. Patient verbalized understanding. Spoke with the daughter yesterday regarding results and awaiting testing. CT of the chest was negative for any pulmonary masses. Patient remains afebrile, heart rate 62, respirations 16, blood pressure 138/71 pulse ox 97% on room air 10/18: Patient is found resting comfortably sitting up in bed. She is no acute distress. She is tolerating her pills and start regular diet. No nausea or vomiting at this time. Patient denies any pain. She was given half a liter of magnesium citrate with positive results. Patient stated she had 2 bowel movements that were soft and formed. Plan is for her to continue MiraLAX on a daily basis. Patient is tolerating the Levemir 10 mg twice a day with blood sugars ranging between 1 teens to 120s. Patient is scheduled for core biopsy tomorrow. If patient is up-to-date she may go home tomorrow or Tuesday. REVIEW OF SYSTEMS Constitutional: No fever, no chills, no night sweats. No weight change. No weakness, fatigue or lethargy. No daytime sleepiness. EENT: No headache. No blurred vision or double vision, no loss of vision. No loss of Hearing, no ringing in the ears, no dizziness. No nasal drainage or congestion. No epistaxis. No sore throat. Lungs: No shortness of breath, cough, no sputum production. No wheezing. Cardiovascular: No chest pain, no lower extremity edema. No palpitations. No paroxysmal nocturnal dyspnea. No orthopnea. No lightheadedness or dizziness. No syncopal episodes. Abdominal: Positive abdominal pain with nausea -resolved no bowel movement significant discomfort lately more bloating sensation. Decrease of appetite and weight loss. Genitourinary: No dysuria, increased frequency, urgency. No urinary retention. Musculoskeletal: No myalgias. No muscle weakness, no gait dysfunction, no frequent falls. No back pain. No neck pain. Integumentary: No wounds, no lesions. No rash or pruritus. No unusual bruising. No change in hair or nails. Neurologic: No aphasia. No facial droop. No change in mentation. No head injury. No headache. No paralysis. No paresthesia. Psychiatric: No depression. No anxiety. No mood swings. Endocrine: No abnormal blood sugars. No weight change. No excessive sweating or thirst. No cold intolerance. PHYSICAL EXAMINATION Gen: This is a well-developed no acute respiratory distress does not look having any Icteris keratosis or jaundice HEENT: Head is atraumatic, normocephalic. Pupils equal, round. Sclerae is anicteric. NECK: Supple. No JVD. No lymphadenopathy. No thyromegaly. LUNGS: Clear to auscultation. No wheezes or rhonchi. No intercostal retractions. HEART: Regular rate and rhythm. No murmur. ABDOMEN: Soft positive significant discomfort admitted epigastric area and lower abdominal region area as well without any rebound or rigidity, positive sign of ascites as well. EXTREMITIES: No pedal edema. No calf tenderness. NEUROLOGICAL: Patient is awake, alert and oriented x3. Cranial nerves 2 through 12 are grossly intact. ASSESSMENT AND PLAN 1. Acute severe abdominal pain: Secondary to bowel obstruction and pancreatic mass with metastasis along with ascites. Patient will continue pain management with try to keep her from having NG tube at this point consult general surgery appreciated. 2 pancreatic tumor: 8 cm tumor exists in the tail of the pancreas with significant sign of metastasis in the Peritoneum along with the liver area, CA 19 9 was requested MRCP will be done and patient be seen oncology. Furthermore staging will be done by doing MRI of the brain along with chest CT. Core biopsy scheduled for Tuesday 3 bowel obstruction: Most likely secondary to compression from lymph node enlargement patient be seen general surgery might require NG tube if continue having symptoms might require surgery. 4 history of type 2 diabetes: Will add Accu-Chek with sliding scales coverage,Januvia discontinued, start Levemir 10 mg twice a day, continue NovoLog sliding scale as needed. 5 hyperlipidemia: Has been on Lipitor 10 mg a day. 6 hypertension: Has been on amlodipine 5 mg a day along with losartan 100 mg daily. 7 chronic peripheral diabetic neuropathy: Patient has been on Lyrica 75 mg at bedtime. 8 UTI: UA was positive this point patient will be on Rocephin 1 g daily continue to the cultures completed. 9 GERD/GI prophylaxis: Patient has been on omeprazole 20 mg twice a day she is known to have history of hiatal hernia. 10 DVT prophylaxis: As soon as were done with testing specially patient does not require to go for surgery she'll be on heparin subcutaneous continue Venodyne boots and knee-high CAYDEN hose. 11. COVID-19 testing. CODE STATUS: Full code. Admit patient to the inpatient service for More than 2 night stay. Patient will be admitted to the hospital for a minimum of 2 night stay. Discharge plan: Home Tuesday or Tuesday Impression and plan of care have been directed as dictated by the signing physician. Bev Lemus nurse practitioner acting as scribe for signing physician. Objective - Vital Signs Vital signs: Vital Signs Temp 98.2 F 10/18/21 04:07 Pulse 70 10/18/21 04:07 Resp 16 10/18/21 04:07 BP 125/78 10/18/21 04:07 Pulse Ox 95 10/18/21 04:07 Intake & Output 10/17/21 10/18/21 10/18/21 18:59 06:59 18:59 Weight 85.729 kg Other: Voiding Method Toilet Toilet Toilet # Voids 2 # Bowel Movements 1 - Labs CBC & Chem 7: 10/17/21 06:30 10/17/21 06:30 Labs: Abnormal Lab Results - Last 24 Hours (Table) 10/17/21 10/17/21 10/18/21 Range/Units 17:20 20:08 00:11 POC Glucose (mg/dL) 126 H 167 H 110 H (75-99) mg/dL 10/18/21 10/18/21 Range/Units 07:31 12:05 POC Glucose (mg/dL) 119 H 111 H (75-99) mg/dL
[2021-10-18] MEDS: ACETAMINOPHEN TAB 325 MG TAB PO PRN ×2 (15:30→21:05)
[2021-10-18 17:59] LABS: Glucose,Whole Blood 109 mg/dL (75-99)
[2021-10-18 20:56] LABS: Glucose,Whole Blood 180 mg/dL (75-99)
[2021-10-18] MEDS: amLODIPine 10 MG TAB PO SCH (21:04)
[2021-10-18] MEDS: ATORVASTATIN 10 MG TAB PO SCH (21:04)
[2021-10-18] MEDS: PREGABALIN 75 MG CAP PO SCH (21:05)
[2021-10-18] MEDS: ALPRAZolam 0.25 MG TAB PO PRN (21:05)
[2021-10-19 01:44] LABS: Glucose,Whole Blood 110 mg/dL (75-99)
[2021-10-19 02:13] VITALS: RESP 16
[2021-10-19 04:44] VITALS: TEMP 98.2
[2021-10-19 07:09] LABS: Glucose,Whole Blood 112 mg/dL (75-99)
[2021-10-19] MEDS: INSULIN ASPART (NovoLOG) 100 UNIT/ML VIAL SQ SCH ×2 (07:32→13:37)
[2021-10-19] MEDS: CHOLECALCIFEROL 125 MCG (5000 IU) TABLET PO SCH (09:41)
[2021-10-19] MEDS: PANTOPRAZOLE 40 MG TABLET PO SCH (09:41)
[2021-10-19] MEDS: LOSARTAN 50 MG TAB PO SCH (09:42)
[2021-10-19] MEDS: SENNOSIDES 8.6 MG TAB PO SCH (09:42)
[2021-10-19] MEDS: MAGNESIUM OXIDE 400 MG TAB PO SCH (09:42)
[2021-10-19] MEDS: polyethylene glycoL 3350 17 GM POWD.PACK PO SCH (09:43)
[2021-10-19] MEDS: CALCIUM CARBONATE 500 MG CHEWABLE PO SCH (09:43)
[2021-10-19] MEDS: INSULIN DETEMIR (LEVEMIR) 100 UNIT/ML SYR SQ SCH (09:45)
--- NOTE | 2021-10-19 11:37 | US ---
EXAMINATION TYPE: US biopsy soft tissue/muscle DATE OF EXAM: 10/19/2021 HISTORY: Abdominal, peritoneal masses, pancreatic and liver masses. Correlation to CT scan dated 10/15/2021 FINDINGS: Maximal barrier technique was utilized. Hand hygiene achieved with soap and water and alco hol-based hand rub. The skin overlying a suitable path to the patient's peritoneal mass to the left o f midline and slightly supraumbilical in location just deep to the abdominal wall was localized with ultrasound and the overlying skin prepped and draped. Ultrasound was utilized with sterile technique . Lidocaine was used for local anesthesia. A skin camryn was made with a scalpel. An 18-gauge needle was advanced under direct ultrasound guidance and core specimen obtained of the mass. Single pass wa s made. Specimen submitted in formalin to Pathology. Following the procedure, hemostasis achieved a nd the patient is discharged in stable condition without complication. IMPRESSION:STATUS POST ULTRASOUND GUIDED CORE BIOPSY OF abdominal or peritoneal MASS, PATHOLOGY IS PE NDING. THIS PROCEDURE IS PERFORMED BY THE UNDERSIGNED.
[2021-10-19 12:40] LABS: Glucose,Whole Blood 93 mg/dL (75-99)
--- NOTE | 2021-10-19 12:59 | P.PN ---
Subjective Progress Note Date: 10/19/21 CHIEF COMPLAINT: Pancreatic mass with abdominal pain HISTORY OF PRESENT ILLNESS: Patient scheduled for biopsy of pancreatic mass with IR. She reports very minimal pain. She is having flatus. Did have a bowel movement yesterday. Denies any nausea or vomiting. She is tolerating diet. Afebrile. PHYSICAL EXAM: VITAL SIGNS: Reviewed. GENERAL: Well-developed in no acute distress. HEENT: No sclera icterus. Extraocular movements grossly intact. Moist buccal mucosa. Head is atraumatic, normocephalic. ABDOMEN: Soft. Nondistended. Nontender. NEUROLOGIC: Alert and oriented. Cranial nerves II through XII grossly intact. ASSESSMENT: 1. Pancreatic mass with abdominal pain 2. Possible partial small bowel obstruction related to intraperitoneal tumor deposits PLAN: -Patient scheduled for biopsy with IR pancreatic mass today -Patient can be discharged from surgical standpoint after biopsy when medically cleared -Follow up with oncology outpatient Physician Section Repairer note has been reviewed by physician. Signing provider agrees with the documented findings, assessment, and plan of care. Objective - Vital Signs Vital signs: Vital Signs Temp 98.2 F 10/19/21 04:42 Pulse 65 10/19/21 12:43 Resp 16 10/19/21 11:30 BP 119/79 10/19/21 12:43 Pulse Ox 95 10/19/21 11:30 Intake & Output 10/18/21 10/19/21 10/19/21 18:59 06:59 18:59 Other: Voiding Method Toilet Toilet # Voids 1 - Labs CBC & Chem 7: 10/17/21 06:30 10/17/21 06:30 Labs: Abnormal Lab Results - Last 24 Hours (Table) 10/18/21 10/18/21 10/19/21 Range/Units 17:57 20:55 01:43 POC Glucose (mg/dL) 109 H 180 H 110 H (75-99) mg/dL 10/19/21 Range/Units 07:05 POC Glucose (mg/dL) 112 H (75-99) mg/dL
--- NOTE | 2021-10-19 13:39 | P.PN ---
Subjective Progress Note Date: 10/19/21 Principal diagnosis: Pancreatic mass, liver and omental lesions In f/u today pt is pending bx. She has no new c/o at this time Objective - Vital Signs Vital signs: Vital Signs Temp 98.2 F 10/19/21 04:42 Pulse 65 10/19/21 12:43 Resp 16 10/19/21 11:30 BP 119/79 10/19/21 12:43 Pulse Ox 95 10/19/21 11:30 Intake & Output 10/18/21 10/19/21 10/19/21 18:59 06:59 18:59 Other: Voiding Method Toilet Toilet # Voids 1 - Constitutional General appearance: Present: average body habitus, cooperative, no acute distress - EENT Eyes: Present: anicteric sclerae, EOMI ENT: Present: hearing grossly normal - Respiratory Details: resp even and unlabored - Neurologic Neurologic: Present: CNII-XII intact - Musculoskeletal Musculoskeletal: Present: strength equal bilaterally - Psychiatric Psychiatric: Present: A&O x's 3, appropriate affect, intact judgment & insight - Labs CBC & Chem 7: 10/17/21 06:30 10/17/21 06:30 Labs: Abnormal Lab Results - Last 24 Hours (Table) 10/18/21 10/18/21 10/19/21 Range/Units 17:57 20:55 01:43 POC Glucose (mg/dL) 109 H 180 H 110 H (75-99) mg/dL 10/19/21 Range/Units 07:05 POC Glucose (mg/dL) 112 H (75-99) mg/dL - Imaging and Cardiology CT scan - abdomen: report reviewed CT scan - chest: report reviewed CT scan - pelvis: report reviewed MRI - head: report reviewed MRCP report reviewed Assessment and Plan (1) Abdominal pain Current Visit: Yes Status: Acute Priority: High Code(s): R10.9 - UNSPECIFIED ABDOMINAL PAIN SNOMED Code(s): 27691973 (2) Pancreatic mass Current Visit: Yes Status: Acute Priority: High Code(s): K86.89 - OTHER SPECIFIED DISEASES OF PANCREAS SNOMED Code(s): 548756529 Plan: Pending tissue pathology. Was contacted by IR ASHLEY. Upon review Radiologist feels that omental mass is least invasive and lower risk then other options for biopsy. Order changed per Radiologist request. Dr francisests: I have performed H&P, developed impression and plan of care. Discussed with dictator, agree with dictation, documented as a scribe.
[2021-10-19 14:00] VITALS: BP 117/78; PULSE 67
== END 2021-10-19 16:15 | disposition home or self-care (01) | DRG 436 ==
LOC: EC 20:28 → 5NMEDONC 10-16 00:59
PROVIDERS: ADMIT Internal Medicine Geriatric Medicine; ATTEND Internal Medicine Geriatric Medicine
PROC: 0WBH3ZX Excision of Retroperitoneum, Percutaneous Approach, Diagnostic (ICD-10-PCS; principal; 2021-10-19)
DX: C25.2 Malignant neoplasm of tail of pancreas (principal); C78.7 Secondary malignant neoplasm of liver and intrahepatic bile duct; C78.6 Secondary malignant neoplasm of retroperitoneum and peritoneum; C80.0 Disseminated malignant neoplasm, unspecified; K56.600 Partial intestinal obstruction, unspecified as to cause; K56.7 Ileus, unspecified; N39.0 Urinary tract infection, site not specified; R18.8 Other ascites; E11.42 Type 2 diabetes mellitus with diabetic polyneuropathy; E78.5 Hyperlipidemia, unspecified; F41.9 Anxiety disorder, unspecified; G25.81 Restless legs syndrome; I10 Essential (primary) hypertension; K42.9 Umbilical hernia without obstruction or gangrene; R13.10 Dysphagia, unspecified; Z20.822 Contact with and (suspected) exposure to COVID-19; Z79.82 Long term (current) use of aspirin; Z79.84 Long term (current) use of oral hypoglycemic drugs; Z79.899 Other long term (current) drug therapy; Z80.1 Family history of malignant neoplasm of trachea, bronchus and lung; Z80.8 Family history of malignant neoplasm of other organs or systems; Z82.49 Family history of ischemic heart disease and other diseases of the circulatory system; Z87.19 Personal history of other diseases of the digestive system; Z87.891 Personal history of nicotine dependence; Z90.49 Acquired absence of other specified parts of digestive tract; Z90.710 Acquired absence of both cervix and uterus; Z98.890 Other specified postprocedural states; Z60.2 Problems related to living alone
CPT/HCPCS: 20206; 36415; 70553; 71046; 71260; 74177; 74183; 76942; 80048; 80053; 81001; 82378; 83605; 83690; 85025; 85610; 85730; 86301; 87635; 88305; 88341; 88342; 96374; 99285

== ENCOUNTER 2021-11-09 13:20 | Inpatient (IN) | payer MEDICARE ==
[2021-11-09] MEDS ORDERED: HYDROmorphone 0.5 MG/0.5 ML SYRINGE IVP STA (13:45)
[2021-11-09] MEDS ORDERED: ONDANSETRON 4 MG/2 ML VIAL IVP STA (13:46)
--- NOTE | 2021-11-09 13:54 | ED ---
General Adult HPI - General Chief complaint: Abdominal Pain Stated complaint: abd/back pain Time Seen by Provider: 11/09/21 13:28 Source: patient Mode of arrival: wheelchair Limitations: no limitations - History of Present Illness Initial comments: Dictation was produced using [employer] dictation software. please excuse any grammatical, word or spelling errors. Chief Complaint: 70-year-old female presents emergency department for abdominal pain History of Present Illness: 70-year-old female she was diagnosed with pancreatic cancer with metastatic disease approximately 4 weeks ago. She states that she is given a referral to general surgery. She spoke with Dr. Flores over the phone about some symptoms she's been expressing of the last 3-4 days. Since being diagnosed she's been having abdominal pain. They'll pain has been slowly increasing in frequency and intensity. She states the pain is epigastric and radiates to the back. She states that she has pancreatic cancer that is affecting the tail of the pancreas is compressing on the small bowel. She denies any fever. She is having poor appetite. No nausea and vomiting. She is still having some bowel movements. Spoke with Dr. Flores who instructed patient to come to the emergency room for a computed tomography scan. The ROS documented in this emergency department record has been reviewed and confirmed by me. Those systems with pertinent positive or negative responses have been documented in the HPI. All other systems are other negative and/or noncontributory. PHYSICAL EXAM: General Impression: Alert and oriented x3, not in acute distress HEENT: Normocephalic atraumatic, extra-ocular movements intact, pupils equal and reactive to light bilaterally, mucous membranes moist. Cardiovascular: Heart regular rate and rhythm Chest: Able to complete full sentences, no retractions, no tachypnea Abdomen: abdomen soft, mild distention, mild tenderness to the epigastric area, no guarding Musculoskeletal: Pulses present and equal in all extremities, no peripheral edema Motor: no focal deficits noted Neurological: CN II-XII grossly intact, no focal motor or sensory deficits noted Skin: Intact with no visualized rashes Psych: Normal affect and mood ED course: 70-year-old female presents to the emergency department for abdominal pain and concerns of small bowel obstruction. She is recently diagnosed with pancreatic cancer. Vital signs upon arrival are within acceptable limits. Laboratory evaluation obtained. CBC, coag panel, metabolic panel is un remarkable. Computed tomography scan of the abdomen and pelvis shows small bowel obstruction with soft tissue mass and transition zone at the area of the umbilicus. Patient's case was discussed with surgeon Dr. Flores will request patient be admitted to medicine. At this point no NG tube indicated at this time given that patient is not having any active vomiting or nausea at the bedside. Patien t with elevated. Case discussed with Dr. Lackey who is willing to accept patients care. EKG interpretation: Ventricular rate 84, normal sinus rhythm, ID interval 180, QRS 96, QTC 486. No ID prolongation, no QTC prolongation, no ST or T-wave changes noted. No old EKG for comparison. Overall, this EKG is unremarkable - Related Data Home Medications Medication Instructions Recorded Confirmed ALPRAZolam [Xanax] 0.25 mg PO BID PRN 10/15/21 10/15/21 Aspirin EC [Ecotrin Low Dose] 81 mg PO DAILY 10/15/21 10/19/21 Atorvastatin [Lipitor] 10 mg PO HS 10/15/21 10/15/21 Calcium Carbonate [Calcium] 600 mg PO DAILY 10/15/21 10/15/21 Cholecalciferol (Vitamin D3) 125 mcg PO DAILY 10/15/21 10/15/21 [Vitamin D3 (125 MCG = 5,000 IU)] Ibuprofen [Motrin] 600 mg PO Q8HR PRN 10/15/21 10/15/21 Losartan Potassium 100 mg PO DAILY 10/15/21 10/15/21 Magnesium 250 mg PO DAILY 10/15/21 10/15/21 Omeprazole [PriLOSEC] 20 mg PO BID 10/15/21 10/15/21 Pregabalin [Lyrica] 75 mg PO HS 10/15/21 10/15/21 amLODIPine [Norvasc] 5 mg PO HS 10/15/21 10/15/21 Previous Rx's Medication Instructions Recorded Atorvastatin [Lipitor] 10 mg PO HS tab 10/19/21 INSULIN ASPART (NovoLOG) [NovoLOG 0 unit SQ ACHS ml 10/19/21 (formulary)] Insulin Detemir (Levemir) [Levemir] 10 unit SQ HS ml 10/19/21 Sennosides-Docusate Sodium 1 tab PO BID #60 tablet 10/19/21 [Senokot-S] polyethylene glycoL 3350 [Miralax] 17 gm PO DAILY packet 10/19/21 Allergies Allergy/AdvReac Type Severity Reaction Status Date / Time Sulfa (Sulfonamide Allergy Swelling Verified 11/09/21 13:25 Antibiotics) Review of Systems ROS Statement: Those systems with pertinent positive or pertinent negative responses have been documented in the HPI. ROS Other: All systems not noted in ROS Statement are negative. Past Medical History Past Medical History: Diabetes Mellitus, GERD/Reflux, Hyperlipidemia, Hypertension Additional Past Medical History / Comment(s): NIDDM type II, neuropathy bilateral feet, RLS, hiatal hernia History of Any Multi-Drug Resistant Organisms: None Reported Past Surgical History: Bladder Surgery, Cholecystectomy, Hysterectomy Additional Past Surgical History / Comment(s): D&C x2, colonoscopy, cystocele/rectocele Past Anesthesia/Blood Transfusion Reactions: Postoperative Nausea & Vomiting (PONV) Additional Past Anesthesia/Blood Transfusion Reaction / Comment(s): Severe PONV Past Psychological History: Anxiety Smoking Status: Former smoker Past Alcohol Use History: Occasional Past Drug Use History: None Reported - Past Family History Mother Family Medical History: Cancer, Hypertension Additional Family Medical History / Comment(s): Mother had brain cancer Father Family Medical History: Cancer Additional Family Medical History / Comment(s): Father was a cigar smoker and had multiple environmental exposures, he from metastatic cancer that had gone to his lungs. General Exam Limitations: no limitations Course Vital Signs 11/09/21 13:25 Temperature 96.8 F L Pulse Rate 95 Respiratory 16 Rate Blood Pressure 137/90 O2 Sat by Pulse 97 Oximetry Medical Decision Making - Lab Data Result diagrams: 11/09/21 13:38 11/09/21 13:38 Lab Results 11/09/21 11/09/21 11/09/21 Range/Units 13:38 13:38 13:38 WBC 7.3 (3.8-10.6) k/uL RBC 4.81 (3.80-5.40) m/uL Hgb 13.2 (11.4-16.0) gm/dL Hct 41.5 (34.0-46.0) % MCV 86.4 (80.0-100.0) fL MCH 27.6 (25.0-35.0) pg MCHC 31.9 (31.0-37.0) g/dL RDW 14.0 (11.5-15.5) % Plt Count 301 (150-450) k/uL MPV 8.1 Neutrophils % 72 % Lymphocytes % 18 % Monocytes % 6 % Eosinophils % 3 % Basophils % 1 % Neutrophils # 5.2 (1.3-7.7) k/uL Lymphocytes # 1.3 (1.0-4.8) k/uL Monocytes # 0.4 (0-1.0) k/uL Eosinophils # 0.2 (0-0.7) k/uL Basophils # 0.0 (0-0.2) k/uL Hypochromasia Slight PT 10.4 (9.0-12.0) sec INR 1.0 (<1.2) APTT 23.7 (22.0-30.0) sec Sodium 140 (137-145) mmol/L Potassium 3.7 (3.5-5.1) mmol/L Chloride 105 (98-107) mmol/L Carbon Dioxide 24 (22-30) mmol/L Anion Gap 11 mmol/L BUN 17 (7-17) mg/dL Creatinine 0.55 (0.52-1.04) mg/dL Est GFR (CKD-EPI)AfAm >90 (>60 ml/min/1.73 sqM) Est GFR (CKD-EPI)NonAf >90 (>60 ml/min/1.73 sqM) Glucose 168 H (74-99) mg/dL Plasma Lactic Acid Calos (0.7-2.0) mmol/L Calcium 9.9 (8.4-10.2) mg/dL Total Bilirubin 1.1 (0.2-1.3) mg/dL AST 32 (14-36) U/L ALT 22 (4-34) U/L Alkaline Phosphatase 149 H (38-126) U/L Total Protein 7.3 (6.3-8.2) g/dL Albumin 4.3 (3.5-5.0) g/dL 11/09/21 Range/Units 13:38 WBC (3.8-10.6) k/uL RBC (3.80-5.40) m/uL Hgb (11.4-16.0) gm/dL Hct (34.0-46.0) % MCV (80.0-100.0) fL MCH (25.0-35.0) pg MCHC (31.0-37.0) g/dL RDW (11.5-15.5) % Plt Count (150-450) k/uL MPV Neutrophils % % Lymphocytes % % Monocytes % % Eosinophils % % Basophils % % Neutrophils # (1.3-7.7) k/uL Lymphocytes # (1.0-4.8) k/uL Monocytes # (0-1.0) k/uL Eosinophils # (0-0.7) k/uL Basophils # (0-0.2) k/uL Hypochromasia PT (9.0-12.0) sec INR (<1.2) APTT (22.0-30.0) sec Sodium (137-145) mmol/L Potassium (3.5-5.1) mmol/L Chloride (98-107) mmol/L Carbon Dioxide (22-30) mmol/L Anion Gap mmol/L BUN (7-17) mg/dL Creatinine (0.52-1.04) mg/dL Est GFR (CKD-EPI)AfAm (>60 ml/min/1.73 sqM) Est GFR (CKD-EPI)NonAf (>60 ml/min/1.73 sqM) Glucose (74-99) mg/dL Plasma Lactic Acid Calos 1.6 (0.7-2.0) mmol/L Calcium (8.4-10.2) mg/dL Total Bilirubin (0.2-1.3) mg/dL AST (14-36) U/L ALT (4-34) U/L Alkaline Phosphatase (38-126) U/L Total Protein (6.3-8.2) g/dL Albumin (3.5-5.0) g/dL Disposition Clinical Impression: SBO (small bowel obstruction) Disposition: ADMITTED IP TO THIS [facility] Condition: Fair Referrals: Tyler Rodriguez MD [Primary Care Provider] - 1-2 days
[2021-11-09 14:00] LABS: Basophils % (A) 1 %; Eosinophils # (A) 0.2 k/uL (0-0.7); Eosinophils % (A) 3 %; HCT 41.5 % (34.0-46.0); HGB 13.2 gm/dL (11.4-16.0); Hypochromasia Slight; Lymphocytes # (A) 1.3 k/uL (1.0-4.8); Lymphocytes % (A) 18 %; MCH 27.6 pg (25.0-35.0); MCHC 31.9 g/dL (31.0-37.0); MCV 86.4 fL (80.0-100.0); Mean Platelet Volume 8.1; Monocytes # (A) 0.4 k/uL (0-1.0); Monocytes % (A) 6 %; Neutrophils # (A) 5.2 k/uL (1.3-7.7); Neutrophils % (A) 72 %; Platelet Count 301 k/uL (150-450); RBC 4.81 m/uL (3.80-5.40); WBC 7.3 k/uL (3.8-10.6)
[2021-11-09 14:18] LABS: Partial Thromboplastin Time 23.7 sec (22.0-30.0); Prothrombin Time 10.4 sec (9.0-12.0)
[2021-11-09 14:23] LABS: ALT 22 U/L (4-34); AST 32 U/L (14-36); African American GFR (CKD) >90 (>60 ml/min/1.73 sqM); Albumin 4.3 g/dL (3.5-5.0); Alkaline Phosphatase 149 U/L (38-126); Anion Gap 11 mmol/L; Blood Urea Nitrogen 17 mg/dL (7-17); Calcium 9.9 mg/dL (8.4-10.2); Carbon Dioxide 24 mmol/L (22-30); Chloride 105 mmol/L (98-107); Glucose 168 mg/dL (74-99); Non-African American GFR(CKD) >90 (>60 ml/min/1.73 sqM); Potassium 3.7 mmol/L (3.5-5.1); Sodium 140 mmol/L (137-145); Total Bilirubin 1.1 mg/dL (0.2-1.3); Total Protein 7.3 g/dL (6.3-8.2)
--- NOTE | 2021-11-09 15:27 | CT ---
EXAMINATION TYPE: CT abdomen pelvis w con DATE OF EXAM: 11/09/2021 COMPARISON: CT 10/15/2021 HISTORY: Abdominal pain, stage IV pancreatic carcinoma CT DLP: 1713 mGycm Automated exposure control for dose reduction was used. TECHNIQUE: Helical acquisition of images from the lung bases through the pelvis have been completed. CONTRAST: Performed without Oral Contrast and with IV Contrast, patient injected with 100 mL of Isovue 370. FINDINGS: The mesenteric soft tissue deposits consistent with metastatic disease are again noted with in the abdomen. Hiatal hernia with partial intrathoracic stomach is again seen. Fluid distended stoma ch is present, there is an air-fluid level. There is a small umbilical hernia containing fat as well as possibly a portion of small bowel LUNG BASES: No significant abnormality is appreciated. AORTA: No significant abnormality is appreciated. LIVER/GB: Low-attenuation within the right lobe liver with punctate calcifications shows a similar ap pearance, additional hypodense foci at the inferior margin of the right lower liver are again noted c onsistent with metastatic disease, patient is post cholecystectomy PANCREAS: Large pancreatic mass at the distal body and tail is seen, there is encasement of the splen ic artery and again noted is large varix coursing through the abdomen. SPLEEN: No significant abnormality is seen. ADRENALS: No significant abnormality is seen. KIDNEYS: No significant abnormality is seen. REPRODUCTIVE ORGANS: No significant change is seen, cystic focus is present, uterus is absent BOWEL: There is been development of a small bowel obstruction, dilated proximal loops are seen which courses to the level of the umbilicus where there is a caliber change, I question an associated soft tissue mass at this level, sagittal image 65, axial image #[id number]. Scattered diverticular changes a ssociated with the colon FREE AIR: No Free Air visible. ASCITES: Slight increase in ascites compared to prior exam about the liver and spleen. PELVIC ADENOPATHY: None visualized. RETROPERITONEAL ADENOPATHY: No Retroperitoneal Adenopathy visible. URINARY BLADDER: No significant abnormality is seen. OSSEOUS STRUCTURES: No significant abnormality is seen. IMPRESSION: TRANSITION POINT FOR SMALL BOWEL OBSTRUCTION IS THOUGHT TO BE AT THE LEVEL THE UMBILICUS, THERE IS A SMALL AREA OF SOFT TISSUE DENSITY WHICH IS ABNORMAL AT THIS LEVEL. REPORT CALLED TO EMERGENCY CENTER AT THE TIME OF INTERPRETATION AT EXAM.
[2021-11-09] MEDS ORDERED: NALOXONE 0.4 MG/ML 1 ML VIAL IV PRN (15:35)
[2021-11-09] MEDS ORDERED: ACETAMINOPHEN TAB 325 MG TAB PO PRN (15:35)
[2021-11-09] MEDS ORDERED: SODIUM CHLORIDE 0.9% 1,000 ML IV STA (15:41)
--- NOTE | 2021-11-09 16:20 | P.GSCN ---
History of Present Illness Consult date: 11/09/21 Reason for Consult: Small bowel obstruction History of present illness: 70-year-old female known to our service. Patient was hospitalized 3 weeks ago with new diagnosis of metastatic pancreatic cancer. At the time of the initial presentation the patient had evidence of carcinomatosis and there was concern for possible partial small bowel obstruction. Patient was treated conservatively. She was discharged home. She had core biopsy performed while she was hospitalized last visit. She has followed up with oncology. She and the family have decided not to pursue any palliative chemotherapy at this time. She contacted our office today stating that over the last 3 days she has had increased nausea and crampy abdominal pain. She is having small loose stools. This feels different than when she presented to the hospital several weeks ago. She was encouraged to come back to the hospital for repeat CAT scan. CAT scan now showing partial small bowel obstruction with transition point near the umbilicus where there is some soft tissue thickening likely tumor. Stomach duodenum and proximal small bowel distended. Patient has had nausea but no vomiting. She has had some regurgitation. Pain comes in waves. She can hear her bowel sounds audibly. Review of Systems The patient denies any acute changes in vision or hearing, no dysphagia or odynophagia, no chest pain or shortness of breath, no dysuria or hematuria, no headache, no runny nose, no rectal bleeding or melena, no unexplained weight los s Past Medical History Past Medical History: Diabetes Mellitus, GERD/Reflux, Hyperlipidemia, Hypertension Additional Past Medical History / Comment(s): NIDDM type II, neuropathy bilateral feet, RLS, hiatal hernia History of Any Multi-Drug Resistant Organisms: None Reported Past Surgical History: Bladder Surgery, Cholecystectomy, Hysterectomy Additional Past Surgical History / Comment(s): D&C x2, colonoscopy, cystocele/rectocele Past Anesthesia/Blood Transfusion Reactions: Postoperative Nausea & Vomiting (PONV) Additional Past Anesthesia/Blood Transfusion Reaction / Comm: Severe PONV Past Psychological History: Anxiety Smoking Status: Former smoker Past Alcohol Use History: Occasional Past Drug Use History: None Reported - Past Family History Mother Family Medical History: Cancer, Hypertension Additional Family Medical History / Comment(s): Mother had brain cancer Father Family Medical History: Cancer Additional Family Medical History / Comment(s): Father was a cigar smoker and had multiple environmental exposures, he from metastatic cancer that had go ne to his lungs. Medications and Allergies Home Medications Medication Instructions Recorded Confirmed Type ALPRAZolam [Xanax] 0.25 mg PO BID PRN 10/15/21 10/15/21 History Aspirin EC [Ecotrin Low Dose] 81 mg PO DAILY 10/15/21 10/19/21 History Atorvastatin [Lipitor] 10 mg PO HS 10/15/21 10/15/21 History Calcium Carbonate [Calcium] 600 mg PO DAILY 10/15/21 10/15/21 History Cholecalciferol (Vitamin D3) 125 mcg PO DAILY 10/15/21 10/15/21 History [Vitamin D3 (125 MCG = 5,000 IU)] Ibuprofen [Motrin] 600 mg PO Q8HR PRN 10/15/21 10/15/21 History Losartan Potassium 100 mg PO DAILY 10/15/21 10/15/21 History Magnesium 250 mg PO DAILY 10/15/21 10/15/21 History Omeprazole [PriLOSEC] 20 mg PO BID 10/15/21 10/15/21 History Pregabalin [Lyrica] 75 mg PO HS 10/15/21 10/15/21 History amLODIPine [Norvasc] 5 mg PO HS 10/15/21 10/15/21 History Atorvastatin [Lipitor] 10 mg PO HS tab 10/19/21 Rx INSULIN ASPART (NovoLOG) [NovoLOG 0 unit SQ ACHS ml 10/19/21 Rx (formulary)] Insulin Detemir (Levemir) [Levemir] 10 unit SQ HS ml 10/19/21 Rx Sennosides-Docusate Sodium 1 tab PO BID #60 tablet 10/19/21 Rx [Senokot-S] polyethylene glycoL 3350 [Miralax] 17 gm PO DAILY packet 10/19/21 Rx Allergies Allergy/AdvReac Type Severity Reaction Status Date / Time Sulfa (Sulfonamide Allergy Swelling Verified 11/09/21 13:25 Antibiotics) Surgical - Exam Vital Signs Temp Pulse Resp BP Pulse Ox 96.8 F L 95 16 137/90 97 11/09/21 13:25 11/09/21 13:25 11/09/21 13:25 11/09/21 13:25 11/09/21 13:25 Physical exam: General: Well-developed, well-nourished HEENT: Normocephalic, sclerae nonicteric Abdomen: Mildly distended, mild diffuse tenderness, some fullness at umbilicus and left side of abdomen Extremities: No edema Neuro: Alert and oriented Results - Labs 11/09/21 13:38 11/09/21 13:38 Abnormal Lab Results - Last 24 Hours (Table) 11/09/21 Range/Units 13:38 Glucose 168 H (74-99) mg/dL Alkaline Phosphatase 149 H (38-126) U/L Diabetes panel 11/09/21 Range/Units 13:38 Sodium 140 (137-145) mmol/L Potassium 3.7 (3.5-5.1) mmol/L Chloride 105 (98-107) mmol/L Carbon Dioxide 24 (22-30) mmol/L BUN 17 (7-17) mg/dL Creatinine 0.55 (0.52-1.04) mg/dL Glucose 168 H (74-99) mg/dL Calcium 9.9 (8.4-10.2) mg/dL AST 32 (14-36) U/L ALT 22 (4-34) U/L Alkaline Phosphatase 149 H (38-126) U/L Total Protein 7.3 (6.3-8.2) g/dL Albumin 4.3 (3.5-5.0) g/dL Calcium panel 11/09/21 Range/Units 13:38 Calcium 9.9 (8.4-10.2) mg/dL Albumin 4.3 (3.5-5.0) g/dL Pituitary panel 11/09/21 Range/Units 13:38 Sodium 140 (137-145) mmol/L Potassium 3.7 (3.5-5.1) mmol/L Chloride 105 (98-107) mmol/L Carbon Dioxide 24 (22-30) mmol/L BUN 17 (7-17) mg/dL Creatinine 0.55 (0.52-1.04) mg/dL Glucose 168 H (74-99) mg/dL Calcium 9.9 (8.4-10.2) mg/dL Adrenal panel 11/09/21 Range/Units 13:38 Sodium 140 (137-145) mmol/L Potassium 3.7 (3.5-5.1) mmol/L Chloride 105 (98-107) mmol/L Carbon Dioxide 24 (22-30) mmol/L BUN 17 (7-17) mg/dL Creatinine 0.55 (0.52-1.04) mg/dL Glucose 168 H (74-99) mg/dL Calcium 9.9 (8.4-10.2) mg/dL Total Bilirubin 1.1 (0.2-1.3) mg/dL AST 32 (14-36) U/L ALT 22 (4-34) U/L Alkaline Phosphatase 149 H (38-126) U/L Total Protein 7.3 (6.3-8.2) g/dL Albumin 4.3 (3.5-5.0) g/dL Assessment and Plan (1) SBO (small bowel obstruction) Narrative/Plan: 70-year-old female with small bowel obstruction almost certainly related to the patient's carcinomatosis. Options reviewed in detail with the patient and HER-2 daughters. Options at this point would include surgical exploration with plans for small bowel resection or ostomy, palliative gastrostomy tube placement, hospice referral. They will consider and we will reassess tomorrow. May have ice chips sparingly. Current Visit: Yes Status: Acute Code(s): K56.609 - UNSP INTESTNL OBST, UNSP TO PARTIAL VERSUS COMPLETE OBST SNOMED Code(s): 865993504
[2021-11-09] MEDS: SODIUM CHLORIDE 0.9% 1,000 ML IV SCH (17:36)
[2021-11-09] MEDS: HYDROmorphone 0.5 MG/0.5 ML SYRINGE IVP PRN ×3 (17:37→23:15)
[2021-11-09] MEDS: ONDANSETRON 4 MG/2 ML VIAL IVP PRN (20:33)
[2021-11-10] MEDS: HYDROmorphone 0.5 MG/0.5 ML SYRINGE IVP PRN ×7 (02:37→23:13)
[2021-11-10] MEDS: SODIUM CHLORIDE 0.9% 1,000 ML IV SCH ×3 (05:48→16:56)
[2021-11-10 07:26] LABS: Glucose,Whole Blood 156 mg/dL (75-99)
[2021-11-10] MEDS: ONDANSETRON 4 MG/2 ML VIAL IVP PRN ×3 (09:36→23:13)
[2021-11-10] MEDS ORDERED: MORPHINE SULFATE 2 MG/ML SYRINGE IVP PRN (10:55)
--- NOTE | 2021-11-10 11:30 | P.PN ---
Subjective Progress Note Date: 11/10/21 Principal diagnosis: Partial small bowel obstruction Patient says she does feel better today. She had multiple loose stools last night. Patient states she thinks is related to the IV hydration. No pain at this time. Patient did require pain medications overnight. Patient discussed her oncologic situation with Dr. Ann last night by phone and also was discussing her situation with Dr. Mcdonald at the bedside. Patient has decided against any further surgery. She is agreeable to decompression gastrostomy if obstruction becomes more progressive and symptoms not improved with other means. No nausea or vomiting at this time. Objective - Vital Signs Vital signs: Vital Signs Temp 98.5 F 11/10/21 07:30 Pulse 78 11/10/21 09:29 Resp 18 11/10/21 09:29 BP 125/75 11/10/21 07:30 Pulse Ox 93 L 11/10/21 04:25 Intake & Output 11/09/21 11/10/21 11/10/21 18:59 06:59 18:59 Intake Total 720 Balance 720 Weight 81.647 kg Intake: Intake, IV Titration 720 Amount Sodium Chloride 0.9% 1, 720 000 ml @ 120 mls/hr IV . Q8H20M [facility] Rx#:[id number] Other: Voiding Method Toilet Toilet - Exam Abdomen: Soft, mild distention, nontender - Labs CBC & Chem 7: 11/09/21 13:38 11/09/21 13:38 Labs: Abnormal Lab Results - Last 24 Hours (Table) 11/09/21 11/10/21 Range/Units 13:38 07:19 Glucose 168 H (74-99) mg/dL POC Glucose (mg/dL) 156 H (75-99) mg/dL Alkaline Phosphatase 149 H (38-126) U/L Assessment and Plan (1) SBO (small bowel obstruction) Narrative/Plan: Patient and I discussed her partial small bowel obstruction further. She is not interested in surgical exploration. Hospice has been consulted. Anticipate home with hospice. Will remain on standby for possible decompressive gastrostomy if needed. Current Visit: Yes Status: Acute Code(s): K56.609 - UNSP INTESTNL OBST, UNSP TO PARTIAL VERSUS COMPLETE OBST SNOMED Code(s): 068140743
[2021-11-10 11:49] LABS: Glucose,Whole Blood 126 mg/dL (75-99)
--- NOTE | 2021-11-10 14:33 | P.HPIM ---
History of Present Illness H&P Date: 11/10/21 HISTORY OF PRESENT ILLNESS 70-year-old female patient of Dr. Rodriguez with past medical history of mild obesity, type 2 diabetes, history of Sotomayor, history of neuropathy, history of hypertension and hyperlipidemia, history of GERD. Patient was recently hospitalized in October of this year for severe abdominal pain secondary to bowel obstruction and pancreatic mass with metastasis along with ascites. She was found to have an 8 cm tumor at the tail of the pancreas with metastatic disease to the peritoneum along with the liver. She was seen at that time by general surgery and oncology. 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 She now presents due to increasing abdominal pain in epigastric area and radiates to the back, poor appetite. No nausea or vomiting. She has been having bowel movements. She had contacted Dr. Flores was instructed to come into the emergency center. Her pain has been a 78/10 overnight. She was found to be afebrile, heart rate 95, blood pressure 137/90, pulse ox 97% on room air. CBC was unremarkable. Electrolytes and renal function normal. Blood sugar 168. Alkaline phosphatase 149 otherwise liver function tests were normal. Lactic acid 1.6. CAT scan of the abdomen and pelvis with contrast revealed transition point for small bowel obstruction is thought to be at the level of the umbilicus, there is small area of soft tissue density which is abnormal at this level. Patient was admitted to the [facility] floor and has been seen in consultation by Dr. Flores. Patient was given options of surgical exploration with plan for small bowel resection her ostomy, palliative gastrostomy tube placement, hospice referral. Patient is on ice chips sparingly only. At this time, she is concerned that the Dilaudid is too strong for her and we will and in morphine instead. We have reached out to oncology to address pain management for home. Patient is thinking about PEG tube placement. Consult is in place for [facility] REVIEW OF SYSTEMS Constitutional: No fever, no chills, no night sweats. No weight change. No weakness, fatigue or lethargy. No daytime sleepiness. EENT: No headache. No blurred vision or double vision, no loss of vision. No loss of Hearing, no ringing in the ears, no dizziness. No nasal drainage or congestion. No epistaxis. No sore throat. Lungs: No shortness of breath, cough, no sputum production. No wheezing. Cardiovascular: No chest pain, no lower extremity edema. No palpitations. No paroxysmal nocturnal dyspnea. No orthopnea. No lightheadedness or dizziness. No syncopal episodes. Abdominal: Positive abdominal pain with nausea no bowel movement significant discomfort lately more bloating sensation. Decrease of appetite and weight loss. Genitourinary: No dysuria, increased frequency, urgency. No urinary retention. Musculoskeletal: No myalgias. No muscle weakness, no gait dysfunction, no frequent falls. No back pain. No neck pain. Integumentary: No wounds, no lesions. No rash or pruritus. No unusual bruising. No change in hair or nails. Neurologic: No aphasia. No facial droop. No change in mentation. No head injury. No headache. No paralysis. No paresthesia. Psychiatric: No depression. No anxiety. No mood swings. Endocrine: No abnormal blood sugars. No weight change. No excessive sweating or thirst. No cold intolerance. SOCIAL HISTORY She quit smoking long time ago was smoker for few years only, does not drink alcohol, she is and lives alone. FAMILY HISTORY She has 2 daughters one of them has colitis. PHYSICAL EXAMINATION Gen: This is a well-developed no acute respiratory distress does not look having any Icteris keratosis or jaundice HEENT: Head is atraumatic, normocephalic. Pupils equal, round. Sclerae is anicteric. NECK: Supple. No JVD. No lymphadenopathy. No thyromegaly. LUNGS: Clear to auscultation. No wheezes or rhonchi. No intercostal retractions. HEART: Regular rate and rhythm. No murmur. ABDOMEN: Soft positive significant discomfort epigastric area and lower abdominal region without rebound or rigidity. EXTREMITIES: No pedal edema. No calf tenderness. NEUROLOGICAL: Patient is awake, alert and oriented x3. Cranial nerves 2 through 12 are grossly intact. ASSESSMENT AND PLAN 1. Acute severe abdominal pain: Secondary to bowel obstruction and pancreatic mass with metastasis. Patient has been seen by Dr. Flores with recommendations for either small bowel resection her ostomy, palliative gastrostomy tube placement, or hospice referral. Patient's been started on ice chips only. Patient may decide on palliative gastrostomy tube placement. Hospice referral has also been placed by pillowcase cutter. 2. Pancreatic tumor: 8 cm tumor exists in the tail of the pancreas with significantmetastasis in the Peritoneum along with the liver area with biopsy positive for adenocarcinoma of the upper GI versus pancreatobiliary tract primary. 3. Diabetes mellitus type 2 insulin requiring. Patient will be started on NovoLog scale every 6 hours. 4. Hyperlipidemia. Hold atorvastatin. 5. Hypertension. Patient will be resumed on losartan 100 mg daily with parameters. 6. Gastroesophageal reflux disease. Continue omeprazole 20 mg twice daily. 7. Peripheral diabetic neuropathy. Continue Lyrica 75 mg daily at bedtime. 8. Generalized anxiety disorder. Resume Xanax 0.25 mg twice daily. 9. DVT prophylaxis. SCDs and CAYDEN solise CODE STATUS: Full code. Patient will be admitted to the hospital for a minimum of 2 night stay. DISCHARGE PLAN Most likely home tomorrow or with [facility] Impression and plan of care have been directed as dictated by the signing physician. eJssica Hutchison nurse practitioner acting as scribe for signing physician. Past Medical History Past Medical History: Diabetes Mellitus, GERD/Reflux, Hyperlipidemia, Hypertension Additional Past Medical History / Comment(s): NIDDM type II, neuropathy bilateral feet, RLS, hiatal hernia History of Any Multi-Drug Resistant Organisms: None Reported Past Surgical History: Bladder Surgery, Cholecystectomy, Hysterectomy Additional Past Surgical History / Comment(s): D&C x2, colonoscopy, cystocele /rectocele Past Anesthesia/Blood Transfusion Reactions: Postoperative Nausea & Vomiting (PONV) Additional Past Anesthesia/Blood Transfusion Reaction / Comment(s): Severe PONV Past Psychological History: Anxiety Additional Psychological History / Comment(s): Pt resides alone. She is indpendent. Smoking Status: Former smoker Past Alcohol Use History: Occasional Additional Past Alcohol Use History / Comment(s): Pt started smoking in 1964 and quit in 1985. Past Drug Use History: None Reported - Past Family History Mother Family Medical History: Cancer, Hypertension Additional Family Medical History / Comment(s): Mother had brain cancer Father Family Medical History: Cancer Additional Family Medical History / Comment(s): Father was a cigar smoker and had multiple environmental exposures, he from metastatic cancer that had gone to his lungs. Medications and Allergies Home Medications Medication Instructions Recorded Confirmed Type ALPRAZolam [Xanax] 0.25 mg PO BID PRN 10/15/21 11/09/21 History Aspirin EC [Ecotrin Low Dose] 81 mg PO DAILY 10/15/21 11/09/21 History Calcium Carbonate [Calcium] 600 mg PO DAILY 10/15/21 11/09/21 History Cholecalciferol (Vitamin D3) 125 mcg PO DAILY 10/15/21 11/09/21 History [Vitamin D3 (125 MCG = 5,000 IU)] Ibuprofen [Motrin] 600 mg PO Q8HR PRN 10/15/21 11/09/21 History Losartan Potassium 100 mg PO DAILY 10/15/21 11/09/21 History Magnesium 250 mg PO DAILY 10/15/21 11/09/21 History Omeprazole [PriLOSEC] 20 mg PO BID 10/15/21 11/09/21 History Pregabalin [Lyrica] 75 mg PO HS 10/15/21 11/09/21 History Atorvastatin [Lipitor] 10 mg PO HS tab 10/19/21 11/09/21 Rx Insulin Detemir (Levemir) [Levemir] 10 unit SQ HS ml 10/19/21 11/09/21 Rx Acetaminophen-Codeine 300-30mg 1 tab PO Q6H PRN 11/09/21 11/09/21 History [Tylenol w/codeine #3] Allergies Allergy/AdvReac Type Severity Reaction Status Date / Time Sulfa (Sulfonamide Allergy Swelling Verified 11/09/21 16:52 Antibiotics) Physical Exam Vitals: Vital Signs Temp Pulse Pulse Resp BP BP Pulse Ox 11/10/21 07:30 98.5 F 78 18 125/75 11/10/21 04:25 98.4 F 72 18 123/70 93 L 11/09/21 22:00 98.8 F 72 15 135/72 94 L 11/09/21 20:00 98.5 F 77 15 145/76 95 11/09/21 19:00 77 16 122/80 99 11/09/21 16:15 77 20 139/76 98 11/09/21 13:25 96.8 F L 95 16 137/90 97 Intake and Output 11/09/21 11/10/21 11/10/21 22:59 06:59 14:59 Intake Total 720 Balance 720 Intake: Intake, IV Titration 720 Amount Sodium Chloride 0.9% 1, 720 000 ml @ 120 mls/hr IV . Q8H20M [facility] Rx#:[id number] Other: Voiding Method Toilet Weight 81.647 kg Results CBC & Chem 7: 11/09/21 13:38 11/09/21 13:38 Labs: Abnormal Lab Results - Last 24 Hours (Table) 11/09/21 11/10/21 Range/Units 13:38 07:19 Glucose 168 H (74-99) mg/dL POC Glucose (mg/dL) 156 H (75-99) mg/dL Alkaline Phosphatase 149 H (38-126) U/L Thrombosis Risk Factor Assmnt - Choose All That Apply Any of the Below Risk Factors Present?: Yes Each Factor Represents 1 point: Obesity (BMI >25) Other Risk Factors: Yes Each Risk Factor Represents 2 Points: Age 61-74 years Thrombosis Risk Factor Assessment Total Risk Factor Score: 3 Thrombosis Risk Factor Assessment Level: Moderate Risk
--- NOTE | 2021-11-10 15:27 | P.CONS ---
History of Present Illness - Reason for Consult Consult date: 11/10/21 Terminal malignancy Requesting physician: Marques Flores - Chief Complaint Abd pain, distension, possible SBO - History of Present Illness Mrs. Christie is seen with 2 daughters at the bedside. She is a very pleasant patient of Dr. Blandon seen in [facility] ER October 2021 with complaints of worsening abdominal pain, persistent for about 4 months, progressive over few weeks. CT AP revealed 8 cm mass in the tail of the pancreas, 2 suspicious liver lesions and multiple omental metastases. CT the chest was negative. CA-19-9 was over 10,000. 10/19/21, core biopsy of omental mass was positive for adenocarcinoma consistent with pancreatobiliary primary. Patient had been taking Tylenol for abdominal pain radiating across her abdomen into her back and that was adequate at the time, no longer as effective. She continues to have problems with constipation. She has lost 25 pounds within the last 4 months, she was diagnosed with diabetes about that time. She has met with Dr. Blandon twice. Patient has opted not to pursue active chemotherapy treatment. She was sent to the hospital for increasing abdominal pain, suspicions for obstruction, and pain management. Also, transition to hospice. Dr. Blandon did order genetic testing on 11/02, no results yet. after a bolus of fluids, patient states that she had significant water passage from the rectum, some solid pieces of stool were present,. Currently, she is no longer experiencing that issue. She is requiring pain medications. She has not vomited. No fevers. Review of Systems 10 point review of systems is negative except as stated in HPI Past Medical History Past Medical History: Cancer, Diabetes Mellitus, GERD/Reflux, Hyperlipidemia, Hypertension Additional Past Medical History / Comment(s): NIDDM type II, neuropathy bilateral feet, RLS, hiatal hernia History of Any Multi-Drug Resistant Organisms: None Reported Past Surgical History: Bladder Surgery, Cholecystectomy, Hysterectomy Additional Past Surgical History / Comment(s): D&C x2, colonoscopy, cystocele/rectocele Past Anesthesia/Blood Transfusion Reactions: Postoperative Nausea & Vomiting (PONV) Additional Past Anesthesia/Blood Transfusion Reaction / Comm: Severe PONV Past Psychological History: Anxiety Additional Psychological History / Comment(s): Pt resides alone. She is indpendent. Smoking Status: Former smoker Past Alcohol Use History: Occasional Additional Past Alcohol Use History / Comment(s): Pt started smoking in 1964 and quit in 1985. Past Drug Use History: None Reported - Past Family History Mother Family Medical History: Cancer, Hypertension Additional Family Medical History / Comment(s): Mother had brain cancer Father Family Medical History: Cancer Additional Family Medical History / Comment(s): Father was a cigar smoker and had multiple environmental exposures, he from metastatic cancer that had gone to his lungs. Medications and Allergies Home Medications Medication Instructions Recorded Confirmed Type ALPRAZolam [Xanax] 0.25 mg PO BID PRN 10/15/21 11/09/21 History Aspirin EC [Ecotrin Low Dose] 81 mg PO DAILY 10/15/21 11/09/21 History Calcium Carbonate [Calcium] 600 mg PO DAILY 10/15/21 11/09/21 History Cholecalciferol (Vitamin D3) 125 mcg PO DAILY 10/15/21 11/09/21 History [Vitamin D3 (125 MCG = 5,000 IU)] Ibuprofen [Motrin] 600 mg PO Q8HR PRN 10/15/21 11/09/21 History Losartan Potassium 100 mg PO DAILY 10/15/21 11/09/21 History Magnesium 250 mg PO DAILY 10/15/21 11/09/21 History Omeprazole [PriLOSEC] 20 mg PO BID 10/15/21 11/09/21 History Pregabalin [Lyrica] 75 mg PO HS 10/15/21 11/09/21 History Atorvastatin [Lipitor] 10 mg PO HS tab 10/19/21 11/09/21 Rx Insulin Detemir (Levemir) [Levemir] 10 unit SQ HS ml 10/19/21 11/09/21 Rx Acetaminophen-Codeine 300-30mg 1 tab PO Q6H PRN 11/09/21 11/09/21 History [Tylenol w/codeine #3] Allergies Allergy/AdvReac Type Severity Reaction Status Date / Time Sulfa (Sulfonamide Allergy Swelling Verified 11/09/21 16:52 Antibiotics) Physical Exam Vitals: Vital Signs Temp Pulse Pulse Resp BP BP Pulse Ox 11/10/21 07:30 98.5 F 78 18 125/75 11/10/21 04:25 98.4 F 72 18 123/70 93 L 11/09/21 22:00 98.8 F 72 15 135/72 94 L 11/09/21 20:00 98.5 F 77 15 145/76 95 11/09/21 19:00 77 16 122/80 99 11/09/21 16:15 77 20 139/76 98 11/09/21 13:25 96.8 F L 95 16 137/90 97 Intake and Output 11/09/21 11/10/21 11/10/21 22:59 06:59 14:59 Intake Total 720 Balance 720 Intake: Intake, IV Titration 720 Amount Sodium Chloride 0.9% 1, 720 000 ml @ 120 mls/hr IV . Q8H20M [facility] Rx#:[id number] Other: Voiding Method Toilet Weight 81.647 kg - Constitutional General appearance: cooperative, no acute distress, obese - EENT Eyes: anicteric sclerae, EOMI ENT: hearing grossly normal, normal oropharynx - Neck Neck: no lymphadenopathy - Respiratory Respiratory: bilateral: CTA - Cardiovascular Rhythm: regular Heart sounds: normal: S1, S2 Abnormal Heart Sounds: no systolic murmur, no diastolic murmur, no rub, no S3 Gallop, no S4 Gallop, no click, no other leg Peripheral Edema: bilateral: None - Gastrointestinal General gastrointestinal: no absent bowel sounds, decreased bowel sounds, distended, no hepatomegaly, no hyperactive bowel sounds, no normal bowel sounds, no organomegaly, no rigid, no scaphoid, soft, no splenomegaly, no tenderness, no umbilical hernia, no ventral hernia - Neurologic Neurologic: CNII-XII intact - Musculoskeletal Musculoskeletal: strength equal bilaterally - Psychiatric Psychiatric: A&O x's 3, appropriate affect, intact judgment & insight Results CBC & Chem 7: 11/09/21 13:38 11/09/21 13:38 Labs: Abnormal Lab Results - Last 24 Hours (Table) 11/09/21 11/10/21 Range/Units 13:38 07:19 Glucose 168 H (74-99) mg/dL POC Glucose (mg/dL) 156 H (75-99) mg/dL Alkaline Phosphatase 149 H (38-126) U/L CT scan - abdomen: report reviewed CT scan - pelvis: report reviewed Assessment and Plan (1) Adenocarcinoma Narrative/Plan: Pancreaticobiliary origin, metastatic disease. Patient and family have agreed that they do not want to pursue chemotherapy. Patient and family do understand the diagnosis as well as the prognosis. Patient was having symptoms from malignancy-abdominal pain possibly from an ileus/partial small bowel obstruction-so, she was sent to the emergency department to be admitted for symptom management and transition home with hospice. Dr. Mcdonald and Dr. Flores spent some time with the patient and her family answering questions such as what they could expect as the patient's disease progressed. There was discussion of palliative decompression tube if patient's symptoms worsened-vomiting, progressive distention or overt obstruction. Diet was also discussed with the patient-sticking with liquids and very soft foods so as to no t obstruct any structures in the bowel. All of the patient and her daughter's questions were answered to their satisfaction. The Attending has requested that we manage patient's pain. Add Duragesic patch for long-acting pain control. Patient does have morphine for breakthrough pain. Meds for prevention of narcotic induced constipation verified Current Visit: Yes Status: Acute Priority: High Code(s): C80.1 - MALIGNANT (PRIMARY) NEOPLASM, UNSPECIFIED SNOMED Code(s): 436370080 (2) SBO (small bowel obstruction) Narrative/Plan: 2/2 malignancy. Improving with medical mgmt at this time. No plan for surgical intervention at present. Surgeon is following Current Visit: Yes Status: Acute Priority: High Code(s): K56.609 - UNSP INTESTNL OBST, UNSP TO PARTIAL VERSUS COMPLETE OBST SNOMED Code(s): 395576012 (3) Abdominal pain Narrative/Plan: Pain meds being adjusted. Current Visit: Yes Status: Acute Priority: High Code(s): R10.9 - UNSPECIFIED ABDOMINAL PAIN SNOMED Code(s): 30478602 Plan: Doctor attests: I performed a history and physical examination of this patient, developed impression and plan of care, discussed with dictator. I agree with dictators note, documented as a scribe. Time with Patient: Greater than 30
[2021-11-10] MEDS ORDERED: polyethylene glycoL 3350 17 GM POWD.PACK PO PRN (15:31)
[2021-11-10 17:37] LABS: Glucose,Whole Blood 130 mg/dL (75-99)
[2021-11-10 20:52] LABS: Glucose,Whole Blood 135 mg/dL (75-99)
[2021-11-10] MEDS: PREGABALIN 75 MG CAP PO SCH (23:17)
[2021-11-10] MEDS: SENNOSIDES-DOCUSATE SODIUM 1 EACH TAB PO SCH (23:17)
[2021-11-11] MEDS: HYDROmorphone 0.5 MG/0.5 ML SYRINGE IVP PRN ×2 (05:41→14:25)
[2021-11-11] MEDS: ONDANSETRON 4 MG/2 ML VIAL IVP PRN ×2 (05:45→14:25)
[2021-11-11] MEDS: SODIUM CHLORIDE 0.9% 1,000 ML IV SCH ×3 (06:15→17:29)
[2021-11-11] MEDS: SENNOSIDES-DOCUSATE SODIUM 1 EACH TAB PO SCH ×2 (07:45→21:24)
[2021-11-11] MEDS: LOSARTAN 50 MG TAB PO SCH (07:57)
[2021-11-11] MEDS: ALPRAZolam 0.25 MG TAB PO PRN ×2 (07:57→21:23)
[2021-11-11] MEDS: diphenhydrAMINE 25 MG CAP PO PRN ×2 (07:59→17:44)
--- NOTE | 2021-11-11 11:23 | P.PN ---
Subjective Progress Note Date: 11/11/21 Principal diagnosis: Partial small bowel obstruction Patient had a rough night. More nausea. No vomiting. Feels more crampy pain. Is having some itching at this time. Family considering gastrostomy placement. Hospice plans are underway. Objective - Vital Signs Vital signs: Vital Signs Temp 98.2 F 11/11/21 04:30 Pulse 76 11/11/21 04:30 Resp 20 11/11/21 04:30 BP 144/79 11/11/21 04:30 Pulse Ox 92 L 11/11/21 04:30 Intake & Output 11/10/21 11/11/21 11/11/21 18:59 06:59 18:59 Intake Total 900 100 Balance 900 100 Intake: Oral 900 100 Other: Voiding Method Toilet Toilet Toilet # Voids 4 1 # Bowel Movements 1 0 - Exam Abdomen: Soft, mild distention, mild tenderness - Labs CBC & Chem 7: 11/09/21 13:38 11/09/21 13:38 Labs: Abnormal Lab Results - Last 24 Hours (Table) 11/10/21 11/10/21 11/10/21 Range/Units 11:48 17:35 20:47 POC Glucose (mg/dL) 126 H 130 H 135 H (75-99) mg/dL Assessment and Plan (1) SBO (small bowel obstruction) Narrative/Plan: Options of decompressive gastrostomy placement again reviewed with family. They are interested in proceeding at this time. We'll schedule for EGD with PEG tube placement. Risks of bleeding, infection, inability to control nausea symptoms, bowel injury, they understand this is not for feeding purposes but for deco mpression. Current Visit: Yes Status: Acute Priority: High Code(s): K56.609 - UNSP INTESTNL OBST, UNSP TO PARTIAL VERSUS COMPLETE OBST SNOMED Code(s): 204149286
--- NOTE | 2021-11-11 12:10 | P.PN ---
Subjective Progress Note Date: 11/11/21 HISTORY OF PRESENT ILLNESS 70-year-old female patient of Dr. Rodriguez with past medical history of mild obesity, type 2 diabetes, history of Sotomayor, history of neuropathy, history of hy pertension and hyperlipidemia, history of GERD. Patient was recently hospitalized in October of this year for severe abdominal pain secondary to bowel obstruction and pancreatic mass with metastasis along with ascites. She was found to have an 8 cm tumor at the tail of the pancreas with metastatic disease to the peritoneum along with the liver. She was seen at that time by general surgery and oncology. 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 She now presents due to increasing abdominal pain in epigastric area and radiates to the back, poor appetite. No nausea or vomiting. She has been having bowel movements. She had contacted Dr. Flores was instructed to come into the emergency center. Her pain has been a 78/10 overnight. She was found to be afebrile, heart rate 95, blood pressure 137/90, pulse ox 97% on room air. CBC was unremarkable. Electrolytes and renal function normal. Blood sugar 168. Alkaline phosphatase 149 otherwise liver function tests were normal. Lactic acid 1.6. CAT scan of the abdomen and pelvis with contrast revealed transition point for small bowel obstruction is thought to be at the level of the umbilicus, there is small area of soft tissue density which is abnormal at this level. Patient was admitted to the [facility] floor and has been seen in consultation by Dr. Flores. Patient was given options of surgical exploration with plan for small bowel resection her ostomy, palliative gastrostomy tube placement, hospice referral. Patient is on ice chips sparingly only. At this time, she is concerned that the Dilaudid is too strong for her and we will and in morphine instead. We have reached out to oncology to address pain management for home. Patient is thinking about PEG tube placement. Consult is in place for [facility] 2/2: Patient has been seen by Oncology and Dr. Flores. Pain is fairly well controlled, no nausea or vomiting. She has had BMs. [facility] is in place. Patient has decided to move ahead with gastrostomy tube for tomorrow. We will plan for probable discharge home tomorrow. REVIEW OF SYSTEMS Constitutional: No fever, no chills, no night sweats. No weight change. No weakness, fatigue or lethargy. No daytime sleepiness. EENT: No headache. No blurred vision or double vision, no loss of vision. No loss of Hearing, no ringing in the ears, no dizziness. No nasal drainage or congestion. No epistaxis. No sore throat. Lungs: No shortness of breath, cough, no sputum production. No wheezing. Cardiovascular: No chest pain, no lower extremity edema. No palpitations. No paroxysmal nocturnal dyspnea. No orthopnea. No lightheadedness or dizziness. No syncopal episodes. Abdominal: Positive abdominal pain with nausea improved +diarrhea. Decrease of appetite and weight loss. Genitourinary: No dysuria, increased frequency, urgency. No urinary retention. Musculoskeletal: No myalgias. No muscle weakness, no gait dysfunction, no frequent falls. No back pain. No neck pain. Integumentary: No wounds, no lesions. No rash or pruritus. No unusual bruising. No change in hair or nails. Neurologic: No aphasia. No facial droop. No change in mentation. No head injury. No headache. No paralysis. No paresthesia. Psychiatric: No depression. No anxiety. No mood swings. Endocrine: No abnormal blood sugars. No weight change. No excessive sweating or thirst. No cold intolerance. PHYSICAL EXAMINATION Gen: This is a well-developed no acute respiratory distress does not look having any Icteris keratosis or jaundice HEENT: Head is atraumatic, normocephalic. Pupils equal, round. Sclerae is anicteric. NECK: Supple. No JVD. No lymphadenopathy. No thyromegaly. LUNGS: Clear to auscultation. No wheezes or rhonchi. No intercostal retractions. HEART: Regular rate and rhythm. No murmur. ABDOMEN: Soft positive significant discomfort epigastric area and lower abdominal region without rebound or rigidity. EXTREMITIES: No pedal edema. No calf tenderness. NEUROLOGICAL: Patient is awake, alert and oriented x3. Cranial nerves 2 through 12 are grossly intact. ASSESSMENT AND PLAN 1. Acute severe abdominal pain: Secondary to bowel obstruction and pancreatic mass with metastasis. Patient has been seen by Dr. Flores with recommendations for either small bowel resection her ostomy, palliative gastrostomy tube placement, or hospice referral. Patient's been started on ice chips only. Plan on palliative gastrostomy tube placement tomorrow. Hospice arranged by registered nurse hh case manager. 2. Pancreatic tumor: 8 cm tumor exists in the tail of the pancreas with significantmetastasis in the Peritoneum along with the liver area with biopsy positive for adenocarcinoma of the upper GI versus pancreatobiliary tract primary. 3. Diabetes mellitus type 2 insulin requiring. Patient will be started on NovoLog scale every 6 hours. 4. Hyperlipidemia. Hold atorvastatin. 5. Hypertension. Patient will be resumed on losartan 100 mg daily with parameters. 6. Gastroesophageal reflux disease. Continue omeprazole 20 mg twice daily. 7. Peripheral diabetic neuropathy. Continue Lyrica 75 mg daily at bedtime. 8. Generalized anxiety disorder. Resume Xanax 0.25 mg twice daily. 9. DVT prophylaxis. SCDs and CAYDEN hose CODE STATUS: Full code. DISCHARGE PLAN Most likely home with [facility] Impression and plan of care have been directed as dictated by the signing physician. Jessica Hutchison nurse practitioner acting as scribe for signing phys ician. Objective - Vital Signs Vital signs: Vital Signs Temp 97.7 F 11/11/21 11:38 Pulse 80 11/11/21 11:38 Resp 16 11/11/21 11:38 BP 118/68 11/11/21 11:38 Pulse Ox 97 11/11/21 11:38 Intake & Output 11/10/21 11/11/21 11/11/21 18:59 06:59 18:59 Intake Total 900 100 Balance 900 100 Intake: Oral 900 100 Other: Voiding Method Toilet Toilet Toilet # Voids 4 1 # Bowel Movements 1 0 - Labs CBC & Chem 7: 11/09/21 13:38 11/09/21 13:38 Labs: Abnormal Lab Results - Last 24 Hours (Table) 11/10/21 11/10/21 Range/Units 17:35 20:47 POC Glucose (mg/dL) 130 H 135 H (75-99) mg/dL
[2021-11-11] MEDS: traMADol 50 MG TAB PO PRN ×2 (12:48→21:23)
[2021-11-11] MEDS: PREGABALIN 75 MG CAP PO SCH (21:23)
[2021-11-12] MEDS: SODIUM CHLORIDE 0.9% 1,000 ML IV SCH ×3 (04:35→21:12)
[2021-11-12] MEDS: traMADol 50 MG TAB PO PRN (04:35)
[2021-11-12] MEDS: LOSARTAN 50 MG TAB PO SCH (07:54)
[2021-11-12] MEDS: ALPRAZolam 0.25 MG TAB PO PRN ×2 (07:54→16:54)
[2021-11-12] MEDS: SENNOSIDES-DOCUSATE SODIUM 1 EACH TAB PO SCH ×2 (09:32→20:43)
[2021-11-12] MEDS: ONDANSETRON 4 MG/2 ML VIAL IVP PRN ×3 (09:35→20:43)
[2021-11-12] MEDS: HYDROmorphone 0.5 MG/0.5 ML SYRINGE IVP PRN (09:35)
[2021-11-12] MEDS ORDERED: DEXTROSE 5% IN WATER 1,000 ML IV ONE (11:37)
[2021-11-12] MEDS ORDERED: LIDOCAINE 1% INJ 10MG/ML (20 ML MDV) ONE (12:15)
[2021-11-12] MEDS ORDERED: PROPOFOL 10 MG/ML 20 ML VIAL IV ONE (12:15)
[2021-11-12] MEDS ORDERED: IV FLUID CONTINUATION 1,000 ML IV ONE (12:42)
--- NOTE | 2021-11-12 12:55 | P.OP ---
Date of Procedure: 11/12/21 Procedure(s) Performed: PREOPERATIVE DIAGNOSIS: Pancreatic cancer with small bowel obstruction POSTOPERATIVE DIAGNOSIS: Same PROCEDURE: EGD with PEG tube placement SURGEON: Sandra EBL: Minimal ANESTHESIA: Sedation COMPLICATIONS: None OPERATIVE PROCEDURE: The patient was placed in the supine position on the e ndoscopy table. The patient was sedated per anesthesia that time. The Olympus gastroscope was inserted into the oropharynx and passed under direct visualization to the region of the duodenum. No obstruction was seen. The pylorus was widely patent. The stomach was carefully inspected. The stomach was fully insufflated with air. The abdominal wall was inspected. The light was seen shining through the abdominal wall in the left upper quadrant. This site was chosen for PEG tube placement. The area was prepped in the usual sterile fashion. This area was then localized with lidocaine. No air was evident when aspirating while advancing the localizing needle into the stomach until the stomach was reached. A small vertical incision was made using the scalpel. The Seldinger needle was advanced into the lumen of the stomach the wire was advanced. The wire was grasped with an endoscopic snare. The wire was pulled through the oropharynx. The catheter was then threaded over the guid ewire and the guidewire and catheter were pulled anteriorly until the hub of the PEG tube catheter was seated against the anterior wall the stomach. The circular bolster was applied and tightened down. The endoscope was then readvanced into the stomach. There was no evidence of any bleeding and there was appropriate tightness on the bolster. The catheter was cut appropriately. The dual port feeding adapter was applied. DISPOSITION: Stable to recovery room
--- NOTE | 2021-11-12 13:47 | P.PN ---
Subjective Progress Note Date: 11/12/21 HISTORY OF PRESENT ILLNESS 70-year-old female patient of Dr. Rodriguez with past medical history of mild obesity, type 2 diabetes, history of Sotomayor, history of neuropathy, history of hy pertension and hyperlipidemia, history of GERD. Patient was recently hospitalized in October of this year for severe abdominal pain secondary to bowel obstruction and pancreatic mass with metastasis along with ascites. She was found to have an 8 cm tumor at the tail of the pancreas with metastatic disease to the peritoneum along with the liver. She was seen at that time by general surgery and oncology. 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 She now presents due to increasing abdominal pain in epigastric area and radiates to the back, poor appetite. No nausea or vomiting. She has been having bowel movements. She had contacted Dr. Flores was instructed to come into the emergency center. Her pain has been a 78/10 overnight. She was found to be afebrile, heart rate 95, blood pressure 137/90, pulse ox 97% on room air. CBC was unremarkable. Electrolytes and renal function normal. Blood sugar 168. Alkaline phosphatase 149 otherwise liver function tests were normal. Lactic acid 1.6. CAT scan of the abdomen and pelvis with contrast revealed transition point for small bowel obstruction is thought to be at the level of the umbilicus, there is small area of soft tissue density which is abnormal at this level. Patient was admitted to the [facility] floor and has been seen in consultation by Dr. Flores. Patient was given options of surgical exploration with plan for small bowel resection her ostomy, palliative gastrostomy tube placement, hospice referral. Patient is on ice chips sparingly only. At this time, she is concerned that the Dilaudid is too strong for her and we will and in morphine instead. We have reached out to oncology to address pain management for home. Patient is thinking about PEG tube placement. Consult is in place for [facility] 2/2: Patient has been seen by Oncology and Dr. Flores. Pain is fairly well controlled, no nausea or vomiting. She has had BMs. [facility] is in place. Patient has decided to move ahead with gastrostomy tube for tomorrow. We will plan for probable discharge home tomorrow. 2/3: Patient has been afebrile, heart rate 73, blood pressure 135/72, pulse ox 90% on room air. The patient is complaining of nausea that's improved, no bowel movement since 11/10. Pain is fairly well controlled, currently on tramadol as well as fentanyl patch. Patient does have problem with anxiety. She states she had a few sips of liquid yesterday and developed significant abdominal pain casts, bloating. She has passed a small amount of gas last evening and this mor farhana. Plan is for PEG tube placement today and probable discharge tomorrow. REVIEW OF SYSTEMS Constitutional: No fever, no chills, no night sweats. No weight change. No weakness, fatigue or lethargy. No daytime sleepiness. EENT: No headache. No blurred vision or double vision, no loss of vision. No loss of Hearing, no ringing in the ears, no dizziness. No nasal drainage or congestion. No epistaxis. No sore throat. Lungs: No shortness of breath, cough, no sputum production. No wheezing. Cardiovascular: No chest pain, no lower extremity edema. No palpitations. No paroxysmal nocturnal dyspnea. No orthopnea. No lightheadedness or dizziness. No syncopal episodes. Abdominal: Positive abdominal pain with nausea improved +diarrhea. Decrease of appetite and weight loss. Genitourinary: No dysuria, increased frequency, urgency. No urinary retention. Musculoskeletal: No myalgias. No muscle weakness, no gait dysfunction, no frequent falls. No back pain. No neck pain. Integumentary: No wounds, no lesions. No rash or pruritus. No unusual bruising. No change in hair or nails. Neurologic: No aphasia. No facial droop. No change in mentation. No head injury. No headache. No paralysis. No paresthesia. Psychiatric: No depression. No anxiety. No mood swings. Endocrine: No abnormal blood sugars. No weight change. No excessive sweating or thirst. No cold intolerance. PHYSICAL EXAMINATION Gen: This is a well-developed no acute respiratory distress does not look having any Icteris keratosis or jaundice HEENT: Head is atraumatic, normocephalic. Pupils equal, round. Sclerae is anicteric. NECK: Supple. No JVD. No lymphadenopathy. No thyromegaly. LUNGS: Clear to auscultation. No wheezes or rhonchi. No intercostal retractions. HEART: Regular rate and rhythm. No murmur. ABDOMEN: Soft positive significant discomfort epigastric area and lower abdominal region without rebound or rigidity. EXTREMITIES: No pedal edema. No calf tenderness. NEUROLOGICAL: Patient is awake, alert and oriented x3. Cranial nerves 2 through 12 are grossly intact. ASSESSMENT AND PLAN 1. Acute severe abdominal pain: Secondary to bowel obstruction and pancreatic mass with metastasis. Patient has been seen by Dr. Flores with plan for palliative gastrostomy tube placement scheduled for today. Hospice has been arranged by casey saw operator. 2. Pancreatic tumor: 8 cm tumor exists in the tail of the pancreas with significantmetastasis in the Peritoneum along with the liver area with biopsy positive for adenocarcinoma of the upper GI versus pancreatobiliary tract primary. 3. Diabetes mellitus type 2 insulin requiring. Patient will be started on NovoLog scale every 6 hours. 4. Hyperlipidemia. Hold atorvastatin. 5. Hypertension. Patient will be resumed on losartan 100 mg daily with parameters. 6. Gastroesophageal reflux disease. Continue omeprazole 20 mg twice daily. 7. Peripheral diabetic neuropathy. Continue Lyrica 75 mg daily at bedtime. 8. Generalized anxiety disorder. Resume Xanax 0.25 mg twice daily. 9. DVT prophylaxis. SCDs and CAYDEN hose CODE STATUS: Full code. DISCHARGE PLAN Most likely home Tuesday with [facility] Impression and plan of care have been directed as dictated by the signing physician. Jessica Hutchison nurse practitioner acting as scribe for signing physician. Objective - Vital Signs Vital signs: Vital Signs Temp 98.5 F 11/12/21 07:40 Pulse 73 11/12/21 07:40 Resp 16 11/12/21 07:40 BP 135/72 11/12/21 07:40 Pulse Ox 98 11/12/21 07:40 Intake & Output 11/11/21 11/12/21 11/12/21 18:59 06:59 18:59 Intake Total 0 600 Balance 0 600 Intake: Intake, IV Titration 0 600 Amount Sodium Chloride 0.9% 1, 0 600 000 ml @ 120 mls/hr IV . Q8H20M [facility] Rx#:[id number] Other: Voiding Method Toilet Toilet # Voids 3 - Labs CBC & Chem 7: 11/09/21 13:38 11/09/21 13:38
[2021-11-12] MEDS: HYDROmorphone 1 MG/ML 1 ML SYRINGE IVP PRN ×2 (15:18→20:43)
[2021-11-12] MEDS: PREGABALIN 75 MG CAP PO SCH (20:43)
[2021-11-13] MEDS: SODIUM CHLORIDE 0.9% 1,000 ML IV SCH ×2 (01:00→15:20)
[2021-11-13] MEDS: HYDROmorphone 1 MG/ML 1 ML SYRINGE IVP PRN ×2 (03:33→09:17)
[2021-11-13] MEDS: LOSARTAN 50 MG TAB PO SCH (08:00)
[2021-11-13] MEDS: ALPRAZolam 0.25 MG TAB PO PRN (08:00)
[2021-11-13] MEDS: SENNOSIDES-DOCUSATE SODIUM 1 EACH TAB PO SCH ×2 (08:01→20:33)
[2021-11-13] MEDS: ONDANSETRON 4 MG/2 ML VIAL IVP PRN ×2 (08:12→20:33)
[2021-11-13] MEDS ORDERED: oxyCODONE ER 15 MG TAB.ER.12H PO SCH (09:45)
[2021-11-13] MEDS ORDERED: ALPRAZolam 0.25 MG TAB PO STA (10:08)
--- NOTE | 2021-11-13 12:39 | P.PN ---
Subjective Progress Note Date: 11/13/21 HISTORY OF PRESENT ILLNESS 70-year-old female patient of Dr. Rodriguez with past medical history of mild obesity, type 2 diabetes, history of Sotomayor, history of neuropathy, history of hy pertension and hyperlipidemia, history of GERD. Patient was recently hospitalized in October of this year for severe abdominal pain secondary to bowel obstruction and pancreatic mass with metastasis along with ascites. She was found to have an 8 cm tumor at the tail of the pancreas with metastatic disease to the peritoneum along with the liver. She was seen at that time by general surgery and oncology. 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 She now presents due to increasing abdominal pain in epigastric area and radiates to the back, poor appetite. No nausea or vomiting. She has been having bowel movements. She had contacted Dr. Flores was instructed to come into the emergency center. Her pain has been a 78/10 overnight. She was found to be afebrile, heart rate 95, blood pressure 137/90, pulse ox 97% on room air. CBC was unremarkable. Electrolytes and renal function normal. Blood sugar 168. Alkaline phosphatase 149 otherwise liver function tests were normal. Lactic acid 1.6. CAT scan of the abdomen and pelvis with contrast revealed transition point for small bowel obstruction is thought to be at the level of the umbilicus, there is small area of soft tissue density which is abnormal at this level. Patient was admitted to the [facility] floor and has been seen in consultation by Dr. Flores. Patient was given options of surgical exploration with plan for small bowel resection her ostomy, palliative gastrostomy tube placement, hospice referral. Patient is on ice chips sparingly only. At this time, she is concerned that the Dilaudid is too strong for her and we will and in morphine instead. We have reached out to oncology to address pain management for home. Patient is thinking about PEG tube placement. Consult is in place for [facility] 2/2: Patient has been seen by Oncology and Dr. Flores. Pain is fairly well controlled, no nausea or vomiting. She has had BMs. [facility] is in place. Patient has decided to move ahead with gastrostomy tube for tomorrow. We will plan for probable discharge home tomorrow. 2/3: Patient has been afebrile, heart rate 73, blood pressure 135/72, pulse ox 90% on room air. The patient is complaining of nausea that's improved, no bowel movement since 11/10. Pain is fairly well controlled, currently on tramadol as well as fentanyl patch. Patient does have problem with anxiety. She states she had a few sips of liquid yesterday and developed significant abdominal pain casts, bloating. She has passed a small amount of gas last evening and this mor farhana. Plan is for PEG tube placement today and probable discharge tomorrow. 11/13: Patient is status post gastrostomy tube by Dr. Flores 11/12. Patient states that she had pain and was not able to sleep all night. She states she had a little bit of [place] ice last evening but no other oral intake. Oncology contacted and they will adding Roxanol and we have increased her Duragesic patch to 25 g per hour. Due to patient's discomfort and anxiety, we will hold discharge today and plan for tomorrow. She does have been made with [facility]. REVIEW OF SYSTEMS Constitutional: No fever, no chills, no night sweats. No weight change. No weakness, fatigue or lethargy. No daytime sleepiness. EENT: No headache. No blurred vision or double vision, no loss of vision. No loss of Hearing, no ringing in the ears, no dizziness. No nasal drainage or congestion. No epistaxis. No sore throat. Lungs: No shortness of breath, cough, no sputum production. No wheezing. Cardiovascular: No chest pain, no lower extremity edema. No palpitations. No paroxysmal nocturnal dyspnea. No orthopnea. No lightheadedness or dizziness. No syncopal episodes. Abdominal: Positive abdominal pain +diarrhea. Decrease of appetite and weight loss. Genitourinary: No dysuria, increased frequency, urgency. No urinary retention. Musculoskeletal: No myalgias. No muscle weakness, no gait dysfunction, no frequent falls. No back pain. No neck pain. Integumentary: No wounds, no lesions. No rash or pruritus. No unusual bruising. No change in hair or nails. Neurologic: No aphasia. No facial droop. No change in mentation. No head injury. No headache. No paralysis. No paresthesia. Psychiatric: No depression. Reports anxiety. No mood swings. Endocrine: No abnormal blood sugars. No weight change. No excessive sweating or thirst. No cold intolerance. PHYSICAL EXAMINATION Gen: This is a well-developed no acute respiratory distress does not look having any Icteris keratosis or jaundice HEENT: Head is atraumatic, normocephalic. Pupils equal, round. Sclerae is anicteric. NECK: Supple. No JVD. No lymphadenopathy. No thyromegaly. LUNGS: Clear to auscultation. No wheezes or rhonchi. No intercostal retractions. HEART: Regular rate and rhythm. No murmur. ABDOMEN: Soft positive significant discomfort epigastric area and lower abdominal region without rebound or rigidity. PEG tube in place EXTREMITIES: No pedal edema. No calf tenderness. NEUROLOGICAL: Patient is awake, alert and oriented x3. Cranial nerves 2 through 12 are grossly intact. ASSESSMENT AND PLAN 1. Acute severe abdominal pain: Secondary to bowel obstruction and pancreatic mass with metastasis s/p palliative gastrostomy tube placement. Hospice has been arranged by block and case maker. 2. Pancreatic tumor: 8 cm tumor exists in the tail of the pancreas with significantmetastasis in the Peritoneum along with the liver area with biopsy positive for adenocarcinoma of the upper GI versus pancreatobiliary tract primary. 3. Diabetes mellitus type 2 insulin requiring. Patient will be started on NovoLog scale every 6 hours. 4. Hyperlipidemia. Hold atorvastatin. 5. Hypertension. Patient will be resumed on losartan 100 mg daily with marj ramires. 6. Gastroesophageal reflux disease. Continue omeprazole 20 mg twice daily. 7. Peripheral diabetic neuropathy. Continue Lyrica 75 mg daily at bedtime. 8. Generalized anxiety disorder. Resume Xanax 0.25 mg twice daily. 9. Uncontrolled pain secondary to pancreatic cancer. Fentanyl patch increased to 25 mcg/h, oncology added in Roxanol. Patient will be monitored overnight and possible discharge tomorrow. DVT prophylaxis. SCDs and CAYDEN hose CODE STATUS: Full code. DISCHARGE PLAN Most likely home Tuesday with [facility] Impression and plan of care have been directed as dictated by the signing physician. Jessica Hutchison nurse practitioner acting as scribe for signing physician. Objective - Vital Signs Vital signs: Vital Signs Temp 98.1 F 11/13/21 03:40 Pulse 78 11/13/21 07:59 Resp 16 11/13/21 03:40 BP 142/83 11/13/21 07:59 Pulse Ox 96 11/13/21 03:40 Intake & Output 11/12/21 11/13/21 11/13/21 18:59 06:59 18:59 Intake Total 1980 400 Output Total 250 600 Balance 1730 -200 Intake: IV 300 Intake, IV Titration 1100 400 Amount Dextrose 5% in Water 1, 600 400 000 ml @ 50 mls/hr IV . Q20H [facility] Rx#:[id number] IV Fluid Continuation 1, 500 000 ml @ 0 mls/hr IV .[facility] -[facility] Rx#:[id number] Oral 580 Output: Drainage 250 600 Right Abdomen 250 600 Other: Voiding Method Toilet Toilet # Voids 4 - Labs CBC & Chem 7: 11/09/21 13:38 11/09/21 13:38
[2021-11-13] MEDS ORDERED: ALPRAZolam 0.5 MG TAB PO SCH (13:00)
[2021-11-13 14:00] VITALS: BMI 29.9
[2021-11-13] MEDS: MORPHINE CONC SOLN 10mg/0.5mL ORAL SYRG PO PRN ×2 (14:30→20:30)
--- NOTE | 2021-11-13 14:32 | P.PN ---
Subjective Progress Note Date: 11/13/21 Principal diagnosis: Partial small bowel obstruction Patient had pain overnight from the PEG tube placement. Says it was difficult to lay on her side because of discomfort and had trouble sleeping on her back. Feels better today. PEG tube has been draining a bilious liquid. Her nausea seems improved. Objective - Vital Signs Vital signs: Vital Signs Temp 98.0 F 11/13/21 13:00 Pulse 84 11/13/21 13:00 Resp 16 11/13/21 13:00 BP 128/76 11/13/21 13:00 Pulse Ox 92 L 11/13/21 13:00 Intake & Output 11/12/21 11/13/21 11/13/21 18:59 06:59 18:59 Intake Total 1980 400 Output Total 250 600 Balance 1730 -200 Weight 81.647 kg Intake: IV 300 Intake, IV Titration 1100 400 Amount Dextrose 5% in Water 1, 600 400 000 ml @ 50 mls/hr IV . Q20H ONE Rx#:[id number] IV Fluid Continuation 1, 500 000 ml @ 0 mls/hr IV .STK -MED ONE Rx#:[id number] Oral 580 Output: Drainage 250 600 Right Abdomen 250 600 Other: Voiding Method Toilet Toilet # Voids 4 - Exam Abdomen: Soft, mild distention, mild tenderness, PEG tube in place without erythema or significant tenderness - Labs CBC & Chem 7: 11/09/21 13:38 11/09/21 13:38 Assessment and Plan (1) SBO (small bowel obstruction) Narrative/Plan: Patient doing better today. Continue PEG tube to drainage. Will need to clamp for any oral medications. Anticipate discharge with hospice tomorrow. Current Visit: Yes Status: Acute Priority: High Code(s): K56.609 - UNSP INTESTNL OBST, UNSP TO PARTIAL VERSUS COMPLETE OBST SNOMED Code(s): 632906404
[2021-11-13] MEDS: ALPRAZolam 0.5 MG TAB PO PRN (20:30)
[2021-11-13] MEDS: PREGABALIN 75 MG CAP PO SCH (20:30)
[2021-11-14] MEDS: SODIUM CHLORIDE 0.9% 1,000 ML IV SCH ×3 (00:43→13:45)
[2021-11-14 05:09] VITALS: BP 136/74; PULSE 75; RESP 18; TEMP 98.3
[2021-11-14] MEDS: ALPRAZolam 0.5 MG TAB PO PRN (09:28)
[2021-11-14] MEDS: MORPHINE CONC SOLN 10mg/0.5mL ORAL SYRG PO PRN ×2 (09:28→14:15)
[2021-11-14] MEDS: LOSARTAN 50 MG TAB PO SCH (09:29)
[2021-11-14] MEDS: SENNOSIDES-DOCUSATE SODIUM 1 EACH TAB PO SCH (10:23)
--- NOTE | 2021-11-14 13:22 | P.PN ---
Subjective Progress Note Date: 11/14/21 Principal diagnosis: Partial small bowel obstruction Patient doing better today. Pain is improved. Gastrostomy drainage still bilious and liquid. Less bloating. She is anxious for discharge. Objective - Vital Signs Vital signs: Vital Signs Temp 98.3 F 11/14/21 05:00 Pulse 75 11/14/21 05:00 Resp 18 11/14/21 05:00 BP 136/74 11/14/21 05:00 Pulse Ox 94 L 11/14/21 05:00 Intake & Output 11/13/21 11/14/21 11/14/21 18:59 06:59 18:59 Intake Total 1440 Balance 1440 Weight 81.647 kg Intake: Intake, IV Titration 1440 Amount Sodium Chloride 0.9% 1, 1440 000 ml @ 120 mls/hr IV . Q8H20M [facility] Rx#:[id number] Other: Voiding Method Toilet Toilet Toilet # Voids 2 2 - Exam Abdomen: Soft, mild distention, PEG tube in place, bolster loose and slightly - Labs CBC & Chem 7: 11/09/21 13:38 11/09/21 13:38 Assessment and Plan (1) SBO (small bowel obstruction) Narrative/Plan: Patient doing better. May discharge. Current Visit: Yes Status: Acute Priority: High Code(s): K56.609 - UNSP INTESTNL OBST, UNSP TO PARTIAL VERSUS COMPLETE OBST SNOMED Code(s): 5355458 04
--- NOTE | 2021-11-14 14:54 | P.DS ---
Providers Date of admission: 11/09/21 15:36 Attending physician: Leonora Lackey MD Consults: 11/09/21 15:36 Consult Physician Routine Consulting Provider: Marques Flores Consult Reason/Comments: SBO Do you want consulting provider notified?: Already Contacted 11/09/21 16:15 Consult Physician Routine Consulting Provider: Clara Blandon Consult Reason/Comments: Known malignancy Do you want consulting provider notified?: Yes Primary care physician: [facility] Course: HISTORY OF PRESENT ILLNESS 70-year-old female patient of Dr. Rodriguez with past medical history of mild obesity, type 2 diabetes, history of S[place], history of neuropathy, history of hypertension and hyperlipidemia, history of GERD. Patient was recently hospitalized in October of this year for severe abdominal pain secondary to bowel obstruction and pancreatic mass with metastasis along with ascites. She was found to have an 8 cm tumor at the tail of the pancreas with metastatic disease to the peritoneum along with the liver. She was seen at that time by general surgery and oncology. 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 She now presents due to increasing abdominal pain in epigastric area and radiates to the back, poor appetite. No nausea or vomiting. She has been having bowel movements. She had contacted Dr. Flores was instructed to come into the emergency center. Her pain has been a 78/10 overnight. She was found to be afebrile, heart rate 95, blood pressure 137/90, pulse ox 97% on room air. CBC was unremarkable. Electrolytes and renal function normal. Blood sugar 168. Alkaline phosphatase 149 otherwise liver function tests were normal. Lactic acid 1.6. CAT scan of the abdomen and pelvis with contrast revealed transition point for small bowel obstruction is thought to be at the level of the umbilicus, there is small area of soft tissue density which is abnormal at this level. Patient was admitted to the Medr floor and has been seen in consultation by Dr. Flores. Patient was given options of surgical exploration with plan for small bowel resection her ostomy, palliative gastrostomy tube placement, hospice referral. Patient is on ice chips sparingly only. At this time, she is concerned that the Dilaudid is too strong for her and we will and in morphine instead. We have reached out to oncology to address pain management for home. Patient is thinking about PEG tube placement. Consult is in place for [facility] 11/11: Patient has been seen by Oncology and Dr. Flores. Pain is fairly well controlled, no nausea or vomiting. She has had BMs. [facility] is in place. Patient has decided to move ahead with gastrostomy tube for tomorrow. We will plan for probable discharge home tomorrow. 11/12: Patient has been afebrile, heart rate 73, blood pressure 135/72, pulse ox 90% on room air. The patient is complaining of nausea that's improved, no bowel movement since 11/10. Pain is fairly well controlled, currently on tramadol as well as fentanyl patch. Patient does have problem with anxiety. She states she had a few sips of liquid yesterday and developed significant abdominal pain casts, bloating. She has passed a small amount of gas last evening and this morning. Plan is for PEG tube placement today and probable discharge tomorrow. 11/14 patient's pain was not controlled yesterday. Patient's pretty comfortable with her pain medication at this point. She denies any chest pain or breathing difficulty. She has not had any oral intake for the past 4 days. She will just be discharged to home with hospice today. DISCHARGE DIAGNOSES 1. Acute severe abdominal pain: Secondary to bowel obstruction and pancreatic mass with metastasis. 2. Pancreatic tumor: 8 cm tumor exists in the tail of the pancreas with significantmetastasis in the Peritoneum along with the liver area with biopsy positive for adenocarcinoma of the upper GI versus pancreatobiliary tract primary. 3. Diabetes mellitus type 2 insulin requiring. 4. Hyperlipidemia. 5. Hypertension. 6. Gastroesophageal reflux disease. 7. Peripheral diabetic neuropathy. 8. Generalized anxiety disorder. DISCHARGE PLAN Home with [facility] Patient Condition at Discharge: Stable Plan - Discharge Summary New Discharge Prescriptions: New polyethylene glycoL 3350 [Miralax] 17 gm PO DAILY PRN packet PRN Reason: Constipation Sennosides-Docusate Sodium [Senokot-S] 2 each PO BID PRN tab PRN Reason: Constipation Continue Losartan Potassium 100 mg PO DAILY Ibuprofen [Motrin] 600 mg PO Q8HR PRN PRN Reason: Pain Calcium Carbonate [Calcium] 600 mg PO DAILY Aspirin EC [Ecotrin Low Dose] 81 mg PO DAILY Acetaminophen-Codeine 300-30mg [Tylenol w/codeine #3] 1 tab PO Q6H PRN PRN Reason: Pain Pregabalin [Lyrica] 75 mg PO HS ALPRAZolam [Xanax] 0.25 mg PO BID PRN PRN Reason: Anxiety Cholecalciferol (Vitamin D3) [Vitamin D3 (125 MCG = 5,000 IU)] 125 mcg PO DAILY Omeprazole [PriLOSEC] 20 mg PO BID Magnesium 250 mg PO DAILY Discontinued Insulin Detemir (Levemir) [Levemir] 10 unit SQ HS ml Atorvastatin [Lipitor] 10 mg PO HS tab Discharge Medication List ALPRAZolam [Xanax] 0.25 mg PO BID PRN 10/15/21 [History] Aspirin EC [Ecotrin Low Dose] 81 mg PO DAILY 10/15/21 [History] Calcium Carbonate [Calcium] 600 mg PO DAILY 10/15/21 [History] Cholecalciferol (Vitamin D3) [Vitamin D3 (125 MCG = 5,000 IU)] 125 mcg PO DAILY 10/15/21 [History] Ibuprofen [Motrin] 600 mg PO Q8HR PRN 10/15/21 [History] Losartan Potassium 100 mg PO DAILY 10/15/21 [History] Magnesium 250 mg PO DAILY 10/15/21 [History] Omeprazole [PriLOSEC] 20 mg PO BID 10/15/21 [History] Pregabalin [Lyrica] 75 mg PO HS 10/15/21 [History] Acetaminophen-Codeine 300-30mg [Tylenol w/codeine #3] 1 tab PO Q6H PRN 11/09/21 [History] Sennosides-Docusate Sodium [Senokot-S] 2 each PO BID PRN tab 11/11/21 [Rx] polyethylene glycoL 3350 [Miralax] 17 gm PO DAILY PRN packet 11/11/21 [Rx] Follow up Appointment(s)/Referral(s): Tyler Rodriguez MD [Primary Care Provider] - As Needed Discharge Disposition: HOME WITH HOSPICE
== END 2021-11-14 14:25 | disposition hospice, home (50) | DRG 375 ==
LOC: EC 13:20 → 5NMEDONC 15:36
PROVIDERS: ADMIT Internal Medicine; ATTEND Internal Medicine
PROC: 0DH63UZ Insertion of Feeding Device into Stomach, Percutaneous Approach (ICD-10-PCS; principal; 2021-11-12 12:30)
PROC: 3E0G76Z Introduction of Nutritional Substance into Upper GI, Via Natural or Artificial Opening (ICD-10-PCS; principal; 2021-11-12 12:30)
DX: C78.6 Secondary malignant neoplasm of retroperitoneum and peritoneum (principal); C25.2 Malignant neoplasm of tail of pancreas; C78.7 Secondary malignant neoplasm of liver and intrahepatic bile duct; K56.600 Partial intestinal obstruction, unspecified as to cause; E78.5 Hyperlipidemia, unspecified; F41.1 Generalized anxiety disorder; G25.81 Restless legs syndrome; I10 Essential (primary) hypertension; K21.9 Gastro-esophageal reflux disease without esophagitis; Z51.5 Encounter for palliative care; Z66 Do not resuscitate; Z79.4 Long term (current) use of insulin; Z79.82 Long term (current) use of aspirin; E66.9 Obesity, unspecified; E11.40 Type 2 diabetes mellitus with diabetic neuropathy, unspecified; Z68.30 Body mass index [BMI] 30.0-30.9, adult; Z79.899 Other long term (current) drug therapy; Z80.8 Family history of malignant neoplasm of other organs or systems; K76.9 Liver disease, unspecified; E11.42 Type 2 diabetes mellitus with diabetic polyneuropathy; F41.9 Anxiety disorder, unspecified; Z82.49 Family history of ischemic heart disease and other diseases of the circulatory system; Z87.891 Personal history of nicotine dependence; Z90.710 Acquired absence of both cervix and uterus; Z98.890 Other specified postprocedural states; Z90.49 Acquired absence of other specified parts of digestive tract; Z60.2 Problems related to living alone; Z80.1 Family history of malignant neoplasm of trachea, bronchus and lung; Z88.2 Allergy status to sulfonamides
CPT/HCPCS: 36415; 43246; 74177; 80053; 83605; 83690; 85025; 85610; 85730; 87635; 93005; 96374; 96375; 99285